=== PATIENT | male | born 1955 | race Caucasian/White ===

== ENCOUNTER → 2016-08-08 | Outpatient (CLI) | payer OTHER ==
[~2016-08-08] MED LIST: COEN150C PO; HYDR12.56 PO; METO-551 PO
[2016-08-08 13:27] LABS: ALT/SGPT 50 U/L (12-78); AST/SGOT 26 U/L (15-37); BLOOD UREA NITROGEN 19 mg/dl (7-18); CALCIUM 8.7 mg/dl (8.5-10.1); CARBON DIOXIDE 30 mmol/L (21-32); CHLORIDE 108 mmol/L (98-107); CHOLESTEROL 188 mg/dl (0-200); GLUCOSE 157 mg/dl (70-99); POTASSIUM 4.5 mmol/L (3.5-5.1); SODIUM 142 mmol/L (136-145); URIC ACID 5.5 mg/dl (2.6-7.2)
[2016-08-08 13:32] LABS: ALB/GLOB RATIO 0.9 (0.9-2); ALKALINE PHOSPHATASE 69 U/L (45-117); CHOLESTEROL/HDL RATIO 4.3; ESTIMATED AVERAGE GLUCOSE 171 mg/dl; HA1C FLAG Normal (Normal); HDL CHOLESTEROL 44 mg/dl; LDL CHOLESTEROL CALCULATED 107 mg/dl; PROSTATE SPECIFIC ANTIGEN 0.026 ng/ml (0.000-4.000); TRIGLYCERIDES 186 mg/dl (0-150); VERY LOW DENSITY LIPOPROT CALC 37 mg/dl
[2016-08-08 14:06] LABS: RATIO 6.5 mcg/mg (0-30.0)
== END | disposition home or self-care (01) ==
LOC: C.LABMFLN 07:28
PROVIDERS: ATTEND Family Medicine
DX: E78.00 Pure hypercholesterolemia, unspecified (principal); I10 Essential (primary) hypertension; M10.9 Gout, unspecified; E11.9 Type 2 diabetes mellitus without complications; Z12.5 Encounter for screening for malignant neoplasm of prostate

== ENCOUNTER → 2016-12-09 | Outpatient (CLI) | payer OTHER ==
[2016-12-09 13:51] LABS: ESTIMATED AVERAGE GLUCOSE 183 mg/dl; HA1C FLAG Normal (Normal)
[2016-12-09 13:55] LABS: ALT/SGPT 45 U/L (12-78); AST/SGOT 34 U/L (15-37); BLOOD UREA NITROGEN 19 mg/dl (7-18); BUN/CREATININE RATIO 17.2 (10-20); CALCIUM 9.3 mg/dl (8.5-10.1); CARBON DIOXIDE 27 mmol/L (21-32); CHLORIDE 105 mmol/L (98-107); CHOLESTEROL 184 mg/dl (0-200); GLUCOSE 124 mg/dl (70-99); POTASSIUM 4.6 mmol/L (3.5-5.1); SODIUM 138 mmol/L (136-145)
[2016-12-09 13:58] LABS: ALB/GLOB RATIO 0.9 (0.9-2); ALKALINE PHOSPHATASE 96 U/L (45-117); CHOLESTEROL/HDL RATIO 3.9; HDL CHOLESTEROL 47 mg/dl; LDL CHOLESTEROL CALCULATED 106 mg/dl; TRIGLYCERIDES 156 mg/dl (0-150); VERY LOW DENSITY LIPOPROT CALC 31 mg/dl
== END | disposition home or self-care (01) ==
LOC: C.LABMFLN 11:36
PROVIDERS: ATTEND Family Medicine
DX: E11.40 Type 2 diabetes mellitus with diabetic neuropathy, unspecified (principal)

== ENCOUNTER → 2017-04-23 | Outpatient (CLI) | payer OTHER ==
[~2017-04-23] MED LIST changes: +ALLO100T PO; +ATOR-24 PO; +CEFT1INJ57 IV; -COEN150C PO; +COLE1TAB5 PO; +DAPT500I IV; +GLIM1TAB2 PO; -HYDR12.56 PO; +HYDR25TA4 PO; +LISI-729 PO; +METF-384 PO; +MRLP17 PO; +MULT-506 PO; +OXYC-57 PO; +SENN8.6T7 PO
[2017-04-23 13:30] LABS: ALBUMIN 3.7 gm/dl (3.4-5.0); ALT/SGPT 36 U/L (12-78); AST/SGOT 29 U/L (15-37); BLOOD UREA NITROGEN 24 mg/dl (7-18); CALCIUM 9.2 mg/dl (8.5-10.1); CARBON DIOXIDE 28 mmol/L (21-32); CREATININE 1.04 mg/dl (0.60-1.40); GLUCOSE 140 mg/dl (70-99); POTASSIUM 4.4 mmol/L (3.5-5.1); SODIUM 136 mmol/L (136-145); URIC ACID 6.2 mg/dl (2.6-7.2)
[2017-04-23 13:31] LABS: HEMOGLOBIN A1C 7.1 % (4.5-5.6)
[2017-04-23 13:33] LABS: ALKALINE PHOSPHATASE 84 U/L (45-117); CHOLESTEROL 205 mg/dl (0-200); LDL CHOLESTEROL CALCULATED 127 mg/dl; TOTAL PROTEIN 8.5 gm/dl (6.4-8.2)
== END | disposition home or self-care (01) ==
LOC: C.LABMFLN 07:30
PROVIDERS: ATTEND Family Medicine
DX: E78.00 Pure hypercholesterolemia, unspecified (principal); I10 Essential (primary) hypertension; E11.40 Type 2 diabetes mellitus with diabetic neuropathy, unspecified

== ENCOUNTER → 2017-04-28 | Day surgery (SDC) | payer OTHER ==
[2017-04-06 14:55] VITALS: BMI 40.0
[~2017-04-28] VITALS: Ht 167.6 cm; Wt 113.6 kg
[~2017-04-28] MED LIST changes: +ATROPINE SULFATE 0.1 MG/ML 5ML SYR IV PRN; -CEFT1INJ57 IV; -DAPT500I IV; +EpHEDrine SULFATE INJ 50 MG/ML AMP IV PRN; +LIDOCAINE HCL 2% 2 ML VIAL (20MG/ML) ONE; -MRLP17 PO; -MULT-506 PO; -OXYC-57 PO; +PROPOFOL IV EMULSION 10 MG/ML 20 ML VIAL IV ONE; -SENN8.6T7 PO; +SODIUM CHLORIDE 0.9% 500ML 500 ML IV ONE
[2017-04-28 07:54] VITALS: Ht 167.6 cm; Wt 113.6 kg
[2017-04-28 08:08] VITALS: TEMP 36.7
--- NOTE | 2017-04-28 08:47 | Endo History and Physical ---
History & Physical Date of Service: Apr 28, 2017. Chief Complaint: SCREEENING 5 YEAR FOLLOW -UP Referring Physician: DR. DUGAN History of Present Illness 62 yo CM who presents for screening colonoscopy. Past Surgical History Hx Cardiac Surgery: No Hx Internal Defibrillator: No Hx Pacemaker: No Hx Abdominal Surgery: No Hx of Implantable Prosthesis: No Hx Post-Op Nausea and Vomiting: No Hx Cancer Surgery: No Hx Thoracic Surgery: No Hx Orthopedic: Yes (RT LEG SURGERY S/P BREAK, RT LEG SURGERY FOR LUMP ON BONE X2) Hx Urinary Tract Surgery: No Family History Colon CA Social History Smoking Status: Former Smoker Hx Substance Use: No Hx Alcohol Use: Yes (OCCASIONAL) Allergies Coded Allergies: No Known Allergies (Unverified , 04/28/17) Current Medications Reported Home Medications Medications Dose Route/Sig Max Daily Dose Days Date Category Hctz (Hydrochlorothiazide) 25 Mg Tab 0.5 Tab PO QAM 04/06/17 Reported Glimepiride 1 Mg Tab 1 Tab PO QPM 04/06/17 Reported Lipitor (Atorvastatin Calcium) 40 Mg Tab 40 Mg PO HS 04/06/17 Reported Zyloprim (Allopurinol) 100 Mg Tab 100 Mg PO BID 04/06/17 Reported Zestril (Lisinopril) 5 Mg Tab 5 Mg PO QPM 04/06/17 Reported Glucophage (Metformin Hcl) 1,000 Mg Tab 1,000 Mg PO BID 04/06/17 Reported Colestipol Hcl 1 Gm Tab 1 Tab PO BID 04/06/17 Reported Lopressor (Metoprolol Tartrate) 50 Mg Tab 1.5 Tabs PO BID 12/16/11 Reported Vital Signs Weight (Kilograms): 113.64 Height (Feet): 5 Height (Inches): 6 Date Time Temp Pulse Resp B/P (MAP) Pulse Ox O2 Delivery O2 Flow Rate FiO2 04/28/17 08:08 36.7 94 20 172/91 (118) 95 Room Air Physical Exam General Appearance: WD/WN, no apparent distress Respiratory/Chest: Auscultation: breath sounds normal Cardiovascular: Heart Auscultation: RRR Abdomen: Bowel Sounds: normal Inspection & Palpation: soft, non-distended, no tenderness, guarding & rebound Assessment and Plan Assessment: 62 yo CM who presents for screening colonoscopy. Plan: Proceed with colonoscopy.
--- NOTE | 2017-04-28 09:14 | GI REPORT ---
Procedure Date: 04/28/2017 8:25 AM Procedure: Colonoscopy Indications: Screening for colorectal malignant neoplasm Medicines: Monitored Anesthesia Care Complications: No immediate complications. Estimated Blood Loss: Estimated blood loss: none. Procedure: Pre-Anesthesia Assessment: - Prior to the procedure, a History and Physical was performed, and patient medications and allergies were reviewed. The patient's tolerance of previous anesthesia was also reviewed. The risks and benefits of the procedure and the sedation options and risks were discussed with the patient. All questions were answered, and informed consent was obtained. Prior Anticoagulants: The patient has taken no previous anticoagulant or antiplatelet agents. ASA Grade Assessment: III - A patient with severe systemic disease. After reviewing the risks and benefits, the patient was deemed in satisfactory condition to undergo the procedure. After I obtained informed consent, the scope was passed under direct vision. Throughout the procedure, the patient's blood pressure, pulse, and oxygen saturations were monitored continuously. The On-site loaner was introduced through the anus and advanced to the terminal ileum. The colonoscopy was performed without difficulty. The patient tolerated the procedure well. The quality of the bowel preparation was good. The terminal ileum, ileocecal valve, appendiceal orifice, and rectum were photographed. Findings: The perianal and digital rectal examinations were normal. Multiple small-mouthed diverticula were found in the sigmoid colon. Non-bleeding internal hemorrhoids were found during retroflexion. The hemorrhoids were small. Impression: - Diverticulosis in the sigmoid colon. - Non-bleeding internal hemorrhoids. - No specimens collected. Recommendation: - Resume previous diet. - Continue present medications. - Repeat colonoscopy in 10 years for surveillance. - Return to primary care physician as previously scheduled. Oren Camp, 04/28/2017 9:14:04 AM This report has been signed electronically. Note Initiated On: 04/28/2017 8:25 AM I attest to the content of the Intraoperative Record and orders documented therein, exceptions below
--- NOTE | 2017-04-28 09:17 | Discharge Instructions ---
Endoscopy Patient Instructions Date / Procedure(s) Performed Apr 28, 2017. Colonoscopy Allergy Information Coded Allergies: No Known Allergies (Unverified , 04/28/17) Discharge Date / Findings Apr 28, 2017. Diverticulosis Internal hemorrhoids Medication Instructions Stopped Medication(s): ALL MEDS STOPPED YESTERDAY 04/27/17 OK to resume all medications today as prescribed Reported Home Medications Medications Dose Route/Sig Max Daily Dose Days Date Category Hctz (Hydrochlorothiazide) 25 Mg Tab 0.5 Tab PO QAM 04/06/17 Reported Glimepiride 1 Mg Tab 1 Tab PO QPM 04/06/17 Reported Lipitor (Atorvastatin Calcium) 40 Mg Tab 40 Mg PO HS 04/06/17 Reported Zyloprim (Allopurinol) 100 Mg Tab 100 Mg PO BID 04/06/17 Reported Zestril (Lisinopril) 5 Mg Tab 5 Mg PO QPM 04/06/17 Reported Glucophage (Metformin Hcl) 1,000 Mg Tab 1,000 Mg PO BID 04/06/17 Reported Colestipol Hcl 1 Gm Tab 1 Tab PO BID 04/06/17 Reported Lopressor (Metoprolol Tartrate) 50 Mg Tab 1.5 Tabs PO BID 12/16/11 Reported Provider Instructions Activity Restrictions - No exercising or heavy lifting for 24 hours. - Do not drink alcohol the day of the procedure. - Do not drive a car or operate machinery until the day after the procedure. - Do not make any important decisions or sign important papers in 24 hours after the procedure. Following Day: - Return to full activity which may include returning to work/school. Diet Start your diet with liquids and light foods (jello, soup, juice, toast). Then eat your usual diet if not nauseated. Treatment For Common After Affects For mild abdominal pain, bloating, or excessive gas: - Rest - Eat lightly - Lie on right side Follow-Up Information Follow-up with DR. DUGAN as scheduled Anesthesia Information What You Should Know You have had a procedure that required some medicine to reduce anxiety and discomfort. This treatment is called moderate sedation. After receiving the treatment, you may be sleepy, but you will be able to breathe on your own. The effects of the treatment may last for several hours. Follow these instructions along with Activity/Diet recommendations noted above: * Do NOT do anything where dizziness or clumsiness would be dangerous. * Rest quietly at home today, then you can be up and about tomorrow. * Have a responsible person stay with you the rest of today. * You may have had an I.V. today. If so, you may take the dressing off later today. Recommendations Call your doctor if: * Trouble breathing * Continuous vomiting for more than 24 hours * Temperature above 101 degrees * Severe abdominal pain or bloating * Pain not relieved by pain medicine ordered * There is increased drainage or redness from any incision * A large amount of rectal bleeding greater than 2-3 tablespoons. (If you had a polyp/s removed or have hemorrhoids, a small amount of blood - from the rectum is to be expected.) * You have any unanswered questions or concerns. IN THE EVENT OF A SERIOUS EMERGENCY, GO TO THE NEAREST EMERGENCY ROOM Your discharge instructions were prepared by provider Oren Camp. Patient Instructions Signature Page Mika Calhoun Patient (or Guardian) Signature/Date: I have read and understand the instructions given to me by my caregivers. Caregiver/RN/Doctor Signature/Date: The above-named patient and/or guardian has received patient instructions on this date. + Original Patient Signature Page (only) stays with chart. Please make copy for patient.
--- NOTE | 2017-04-28 09:32 | Anesthesiology Progress Note ---
Anesthesia Post Op Note Date & Time Apr 28, 2017 at 09:32 Vital Signs Pain Intensity: 0 Vital Signs Past 12 Hours Date Time Temp Pulse Resp B/P (MAP) Pulse Ox O2 Delivery O2 Flow Rate FiO2 04/28/17 09:14 76 20 110/71 (84) 96 Room Air 04/28/17 08:08 36.7 94 20 172/91 (118) 95 Room Air Notes Mental Status: alert / awake / arousable, participated in evaluation Pt Amnestic to Procedure: Yes Nausea / Vomiting: adequately controlled Pain: adequately controlled Airway Patency, RR, SpO2: stable & adequate BP & HR: stable & adequate Hydration State: stable & adequate Anesthetic Complications: no major complications apparent
[2017-04-28 09:45] VITALS: BP 122/79; PULSE 82; O2SAT 100
== END | disposition home or self-care (01) ==
LOC: C.GI 07:40
PROVIDERS: ATTEND Internal Medicine
DX: Z12.11 Encounter for screening for malignant neoplasm of colon (principal); K57.30 Diverticulosis of large intestine without perforation or abscess without bleeding; K64.8 Other hemorrhoids; K21.9 Gastro-esophageal reflux disease without esophagitis; E11.9 Type 2 diabetes mellitus without complications; Z87.891 Personal history of nicotine dependence; Z80.0 Family history of malignant neoplasm of digestive organs

== ENCOUNTER → 2017-06-15 | Outpatient (CLI) | payer OTHER ==
[~2017-06-15] MED LIST changes: -ATROPINE SULFATE 0.1 MG/ML 5ML SYR IV PRN; -EpHEDrine SULFATE INJ 50 MG/ML AMP IV PRN; -LIDOCAINE HCL 2% 2 ML VIAL (20MG/ML) ONE; -PROPOFOL IV EMULSION 10 MG/ML 20 ML VIAL IV ONE; -SODIUM CHLORIDE 0.9% 500ML 500 ML IV ONE
== END | disposition home or self-care (01) ==
LOC: C.LABSPEC 16:44
PROVIDERS: ATTEND Podiatrist Foot & Ankle Surgery
DX: L97.509 Non-pressure chronic ulcer of other part of unspecified foot with unspecified severity (principal)

== ENCOUNTER → 2017-06-29 | Outpatient (CLI) | payer OTHER ==
[~2017-06-29] MED LIST changes: +GADAVIST IV PRN
--- NOTE | 2017-06-29 13:05 | DIAGNOSTIC IMAGING REPORT ---
R LOWER EXT NONJOINT COMBO CLINICAL HISTORY: RT FOOT R/O OSTEOMYELITIS, RT 2ND DIGIT pain. Infection. TECHNIQUE: Pre and post gadolinium enhancement. Multi axial acquisition COMPARISON STUDY: None FINDINGS: T1 images demonstrate diminished signal involving the distal phalanx of the second toe. Slight decrease in signal base distal phalanx great toe. Moderate granulation and/or inflammatory tissue surrounding the distal phalanx of the second toe and minimally involving the base of the distal phalanx. Findings of moderate generalized soft tissue cellulitis. This is most prominent overlying the second and to a lesser extent right toe phalanges. No evidence for drainable abscess or collection. Postcontrast images demonstrate significant enhancement involving the bulk of the distal phalanx of the second toe. There is perhaps a trace amount of postcontrast enhancement involving the proximal interphalangeal joint of this is potentially degenerative. There is moderate postcontrast enhancement involving the base of the distal phalanx of the great toe. This is suggestive of potential osteomyelitis-type change. There is again no drainable abscess or collection. IMPRESSION: 1. Findings consistent with osteomyelitis distal phalanx second toe 2. Probable early osteomyelitis base distal phalanx great toe. 3. Generalized soft tissue cellulitis and granulation tissue. 4. No evidence for drainable abscess or collection. 5. Generalized degenerative change of the articular services and joint spaces throughout. The above report was generated using voice recognition software. It may contain grammatical, syntax or spelling errors. Electronically signed by: Eduardo Neff M.D. 06/29/2017 1:03 PM Dictated Date/Time: 06/29/2017 12:47 PM
== END | disposition home or self-care (01) ==
LOC: C.MRI 10:07
PROVIDERS: ATTEND Podiatrist Foot & Ankle Surgery
DX: L97.512 Non-pressure chronic ulcer of other part of right foot with fat layer exposed (principal); Q66.89 Other specified congenital deformities of feet

== ENCOUNTER 2017-07-20 14:28 | Inpatient (IN) | payer OTHER ==
[~2017-07-20] VITALS: Ht 172.7 cm; Wt 109.8 kg
[~2017-07-20 14:28] MED LIST changes: -GADAVIST IV PRN
--- NOTE | 2017-07-20 16:06 | HISTORY & PHYSICAL EXAMINATION ---
DATE OF ADMISSION: 07/20/2017 PREOPERATIVE HISTORY AND PHYSICAL HISTORY OF PRESENT ILLNESS: A 62-year-old male presented to the office today for review of MRI. The patient was first seen in my office in May at the request of Dr. Morales for possible surgical correction of the second toe due to a chronic ulceration that has been present for several months. He has had drainage, redness and swelling on the toe since I have known him in May with longstanding history of ulceration and callus formation distal aspect. Due to MRI findings, recommend surgical intervention. The patient is amenable to surgical correction of the infected bone at this time. PAST SURGICAL HISTORY: Leg surgery in 1988 for a leg fracture. PAST MEDICAL HISTORY: Diabetes mellitus, hypertension, hyperlipidemia, arthritis and gout. MEDICATIONS: Atorvastatin, allopurinol, hydrochlorothiazide, lisinopril, metoprolol, glimepiride tablets; recently discontinued the Keflex. ALLERGIES: No known drug allergies. FAMILY HISTORY: Diabetes associated with maternal uncle. An IN less than 50 years old associated with his father. Occupation - he is a truck service manager and repair. SOCIAL HISTORY: The patient admits to alcohol use, drinking described as social. The patient admits to tobacco use, currently not smoking, quit over 40 years ago. A 1- 2-year pack history. SOCIAL HISTORY: The patient currently lives with his who is trying to place in a care facility. REVIEW OF SYSTEMS: Unremarkable except chief complaint. PHYSICAL EXAMINATION: VITAL SIGNS: Height 5 feet 7 inches, weight 250 pounds, body mass index 39. CONSTITUTIONAL: The patient appears well-developed and well-nourished with good attention to body grooming and habitus. EARS, NOSE, MOUTH, AND THROAT: Unremarkable. Head within normal limits. CARDIOVASCULAR: Normal S1, S2 without murmur, gallops, rubs noted. RESPIRATORY: Chest is symmetric. ____ GASTROINTESTINAL: Abdominal organs, bladder, and kidney show no abnormalities, masses, tenderness, or rigidity. LYMPHATIC SYSTEM: No palpable lymph nodes noted. LOWER EXTREMITY: VASCULAR: Dorsalis pedis and posterior tibial pulses are palpable. Digital hair is absent. Varicosities are present. There is focal swelling noted to the right second digit. DERMATOLOGIC: There is an ulceration in plantar right first MTPJ, plantar pulp of the right second digit. The right first hallux is preulcerative with dry drainage noted in the callous. The ulceration in the distal aspect of the right second digit measures 1.7 cm. Base characteristics are dermal. Exudate ____ serosanguineous with mild tracking periwound. The conditions include erythema and edema. NEUROLOGICAL: Epicritic sensation per [place] foam 5.07 absent distally. MUSCULOSKELETAL: Muscle tone is normal. Muscle strength is 5/5 all groups tested. Right second digit shows contracture with retrograde buckling across the metatarsophalangeal joint, right second digit is elongated, distal aspect of the right second digit shows increased size ____ and width. Ankle brachial index performed on June 29 shows digital toe pressures of the right second digit of 0.97. LABORATORY AND IMAGING DATA: ABIs are normal bilaterally, TBIs are normal bilaterally, digits 1 through 3. No evidence of significant lower extremity arterial occlusive disease bilaterally. Bacterial culture from May of drainage shows Staph aureus. No recent cultures were taken. MRI on 06/29/2017 shows diminished signal involving distal phalanx of the second toe. Findings of moderate generalized soft tissue cellulitis, post-enhancement of the distal phalanx of the great toe suggestive of potential osteomyelitis type change. This was discussed with radiology and found to be not clinically significant with osteomyelitis to the distal phalanx of the great toe; however, findings consistent with osteomyelitis to distal phalanx of the second toe. Generalized soft tissue and granulation tissue with no evidence for drainage, abscess or collection. Generalized degenerative change of articular surface of the joint spaces throughout. IMPRESSION: 1. Osteomyelitis, acute, distal phalanx, right second toe. 2. Cellulitis, right foot. 3. Minaya grade 0, preulcerative breakdown forefoot on the right hallux ulceration, Minaya grade 3, distal right second digit with obvious bone involvement. 4. Noninsulin-dependent diabetes mellitus with neuropathy. 5. Hammertoes, right second, most severe. PLAN: Reviewed the MRI findings and typical postoperative course. SURGICAL PROCEDURE TO BE PERFORMED: 1. I&D of right foot. 2. Amputation, right second digit. 3. Capsulotomy with release of right second MTPJ and this will be performed under local with IV sedation of anesthesia at the hospital. The procedure, risks and complications were fully reviewed with the patient. Consent form, foot diagram illustration reviewed in all their entirety. All the patient's questions were answered. Complications were discussed in detail with the patient including pain, infection, swelling that may or may not be excessive, pins and needles feeling, numbness, metatarsalgia, excessive bleeding, delay or nonhealing bone, delay or nonhealing of skin, enlarged scar, failure of the procedure, recurrence or worsening condition which may or may not require further surgery, adverse reaction to anesthesia, allergic reaction to others, suture or other implant material, loss of toe, foot, or leg, flail toe, stiff toe, short toe, elevated toe, transposition or callus, peripheral neurovascular complications such as phlebitis, damage to nerves or vascular structures, severe or chronic pain, chronic nerve pain or damage, and general medical complications. The patient will be required to be in a surgery shoe for minimal for 4-6 weeks and not to dress shoe for 6-12 weeks depending on the postop edema. The patient ____ elective type procedure and I recommend a second opinion. The patient stated he understood. Consent form was signed with a copy of foot diagram issued to the patient. Verbal and written postop instructions were given. The patient will be required to be in a surgery shoe for 4-6 weeks, not return to dress shoe for 6-12 weeks depending on postop edema. He will require 6 weeks of IV antibiotics, stop date being September 01. We spoke to the hospitalist regarding admission, willingness to accept the patient and initiate IV antibiotics. The patient will be congressional representative to the OR tomorrow for surgery, will need 6 weeks of IV antibiotics following surgery.
[2017-07-20] MEDS ORDERED: HEPARIN SOD 5000 UNIT/0.5 ML CARP SQ SCH (16:45)
[2017-07-20] MEDS ORDERED: ACETAMINOPHEN 325 MG TAB PO PRN (16:45)
[2017-07-20] MEDS ORDERED: VANCOMYCIN CONSULT ACTIVE PRN (17:00)
[2017-07-20 17:24] LABS: HEMATOCRIT 36.5 % (42-52); HEMOGLOBIN 12.9 g/dL (14.0-18.0); MEAN CELL VOLUME 94.6 fL (80-100); MEAN CORPUSCULAR HEMOGLOBIN 33.4 pg (25-34); MEAN PLATELET VOLUME 10.5 fL (7.4-10.4); PLATELET COUNT 150 K/uL (130-400); RED CELL DISTRIBUTION WIDTH CV 13.7 % (11.5-14.5); RED CELL DISTRIBUTION WIDTH SD 47.7 fL (36.4-46.3); WHITE BLOOD COUNT 5.17 K/uL (4.8-10.8)
[2017-07-20 17:30] VITALS: BP 177/115; PULSE 80; TEMP 36.6; Ht 172.7 cm; Wt 109.8 kg
[2017-07-20] MEDS ORDERED: GLUCOSE 40% GEL 15 GM TUBE PO PRN (17:30)
[2017-07-20] MEDS ORDERED: DEXTROSE 50% 50 ML SYR IV PRN (17:30)
[2017-07-20] MEDS ORDERED: GLUCAGON FOR INJ 1 MG VIAL SQ PRN (17:30)
[2017-07-20] MEDS ORDERED: GLUCOSE 10 TABS/TUBE PO PRN (17:30)
[2017-07-20] MEDS ORDERED: VANCOMYCIN IV 2,750 MG in SODIUM CHLORIDE 0.9% 500ML 500 ML IV SCH (17:30)
[2017-07-20] MEDS: INSULIN ASPART 100 UNITS/ML 3 ML PEN SC SCH ×2 (17:30→20:09)
[2017-07-20 17:33] LABS: PTT PATIENT 26.1 SECONDS (21.0-31.0)
--- NOTE | 2017-07-20 17:36 | History and Physical ---
History & Physical Date & Time of Service: Jul 20, 2017 at 16:57 Chief Complaint: Acute Osteomyelitis Of R Foot Primary Care Physician: Manuel Santiago M.D. History of Present Illness Source: patient, clinic records Mr. Calhoun presents from Dr. Zheng's office. He was there for an appointment to review results from MRI which showed osteomyelitis which Dr. Zheng felt needed IV antibiotics and surgery tomorrow. He had this wound since two years ago but it had healed until about 6 months ago when the infection presented itself again. It is not painful, not draining. Patient had not felt aches or chill or fevers associated with it. He is able to climb a set of stairs without getting winded and does not generally have difficulty with physical exertion. He has no history of heart failure or CAD or stroke. Pmhx DMII, neuropathy, gout, hld ROS Constitutional: no chills, aches, sweats or fever Respiratory: no sob,cough, sputum, or wheezing Cardiac: no chest pain, palpitations, edema, orthopnea or lightheadedness GI: no abdominal pain, nausea, vomiting, diarrhea or constipation : no dysuria or hesitancy Extremities: no joint pain or weakness Skin: no rash All other systems reviewed and negative Past Medical/Surgical History Medical Problems: (1) Osteomyelitis Family History Mother is alive, she is 91 with some memory issues but otherwise healthy Father of heart problems in his 80s His two children are both adopted. 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) Immunizations History of Influenza Vaccine: Yes History of Pneumococcal: No Allergies Coded Allergies: Lovastatin (Verified Allergy, Mild, unkown, 07/20/17) Simvastatin (Verified Allergy, Mild, unknown, 07/20/17) Home Medications Scheduled Allopurinol (Zyloprim), 100 MG PO BID Atorvastatin (Lipitor), 40 MG PO HS Colestipol Hcl (Colestipol Hcl), 1 TAB PO BID Glimepiride (Glimepiride), 1 TAB PO QPM Hydrochlorothiazide (Hctz), 0.5 TAB PO QAM Lisinopril (Zestril), 5 MG PO QPM Metformin Hcl (Glucophage), 1,000 MG PO BID Metoprolol Tartrate (Lopressor), 1.5 TABS PO BID Physical Exam General: no distress Eyes: normal inspection, PERLL Respiratory: chest non tender, clear to auscultation, normal breath sounds, no respiratory distress, no accessory muscle use Cardiac: regular rate and rhythm, no rub or gallop, no murmur, no edema, no jvd GI/: active bowel sounds, no abd pain or tenderness, soft, non distended Extremities: normal range of motion, normal strength, non tender Neuro/Psych: alert and oriented x 3, normal mood and affect Skin: normal color, dry, right second toe with small amount of edema and non draining hardened eschar opening Diagnostics Laboratory Results Results Past 24 Hours Test 07/20/17 16:41 Range/Units Diagnostic Radiology R LOWER EXT NONJOINT COMBO CLINICAL HISTORY: RT FOOT R/O OSTEOMYELITIS, RT 2ND DIGIT pain. Infection. TECHNIQUE: Pre and post gadolinium enhancement. Multi axial acquisition COMPARISON STUDY: None FINDINGS: T1 images demonstrate diminished signal involving the distal phalanx of the second toe. Slight decrease in signal base distal phalanx great toe. Moderate granulation and/or inflammatory tissue surrounding the distal phalanx of the second toe and minimally involving the base of the distal phalanx. Findings of moderate generalized soft tissue cellulitis. This is most prominent overlying the second and to a lesser extent right toe phalanges. No evidence for drainable abscess or collection. Postcontrast images demonstrate significant enhancement involving the bulk of the distal phalanx of the second toe. There is perhaps a trace amount of postcontrast enhancement involving the proximal interphalangeal joint of this is potentially degenerative. There is moderate postcontrast enhancement involving the base of the distal phalanx of the great toe. This is suggestive of potential osteomyelitis-type change. There is again no drainable abscess or collection. IMPRESSION: 1. Findings consistent with osteomyelitis distal phalanx second toe 2. Probable early osteomyelitis base distal phalanx great toe. 3. Generalized soft tissue cellulitis and granulation tissue. 4. No evidence for drainable abscess or collection. 5. Generalized degenerative change of the articular services and joint spaces throughout. Impression Assessment and Plan Mr. Calhoun is a 62 year old man here for osteomyelitis of the second toe on the right foot for surgery tomorrow. Osteomyelitis of second toe of right foot as well as possible early osteomyelitis of great toe and generalized soft tissue cellulitis of the foot as seen on MRI - admit med surg - cbc, prp, ptt, inr, blood cultures x2, start IV - IVF NSS @ 100 ml at midnight after patient becomes NPO for surgery - EKG, cxr - IV vanc, ceftriaxone - cultures 06/15 showed coag negative staph - Patient's RCRI is 0.4% risk of major cardiac event during surgery. Patient is optimized for surgery DMII - A1c in April was 7.1 - ss, bsgs ac and has - hold home sulfonylurea and metformin for now Gout - continue allopurinol HTN - continue hctz, lisinopril HLD - continue statin Full code Hold chemoprophylaxis for DVT for now in preparation for surgery, SCDs Advanced Directives Existing Advance Directive: No Existing Living Will: Yes Existing Power of Jig And Fixture Builder: No Existing Health Care Proxy: No Resuscitation Status full code VTE Prophylaxis Will order VTE Prophylaxis: Yes
[2017-07-20 17:47] LABS: CALCIUM 9.4 mg/dl (8.5-10.1); CREATININE 0.91 mg/dl (0.60-1.40)
--- NOTE | 2017-07-20 17:52 | DIAGNOSTIC IMAGING REPORT ---
SINGLE VIEW CHEST CLINICAL HISTORY: Preoperative examination. FINDINGS: An AP, portable, upright chest radiograph is obtained. No prior studies are available for comparison at the time of dictation. The examination is mildly degraded by portable technique and patient rotation. The cardiomediastinal silhouette is unremarkable. There is mild elevation of left hemidiaphragm. The lungs and pleural spaces are clear. No pneumothorax is seen. The bony thorax is grossly intact. IMPRESSION: No active disease in the chest. Electronically signed by: Manuel Betancourt M.D. 07/20/2017 5:51 PM Dictated Date/Time: 07/20/2017 5:50 PM
[2017-07-20 18:16] LABS: MEAN CORPUSCULAR HGB CONC 35.3 g/dl (32-36)
[2017-07-20] MEDS: CEFTRIAXONE SOD INJ 1 GM in DEXTROSE 5% ADD-VANTAGE 50ML 50 ML IV SCH (18:24)
[2017-07-20 19:06] VITALS: BP 146/89; PULSE 73
--- NOTE | 2017-07-20 19:27 | Pharmacy Progress Note ---
Pharmacy Abx Initial Consult Date of Service Jul 20, 2017. Pharmacy Dosing Scope Date of Consult: 07/20/17 Consultation requested by: Ilana Kern [facility] is consulted to initiate Vancomycin IV dosing therapy, order appropriate labs and adjust drug dose/frequency. Subjective The patient is a 62 year old male admitted on Jul 20, 2017 at 16:[address] Zheng's office with Osteomyelitis of (R) 2nd toe and cellulitis of (R ) leg. He has failed a course of Keflex and is now admitted with goal of surgery by Dr. Zheng to remove toe and continue IV antibiotics x 6 weeks. Ilana Barreto started patient on Vancomycin per pharmacy consult and Rocephin 1gm daily. Objective Height (Feet): 5 Height (Inches): 8.00 Weight (Kilograms): 109.770 Vital Signs (Past 12Hrs) Vital Signs Past 12 Hours Date Time Temp Pulse Resp B/P (MAP) Pulse Ox O2 Delivery O2 Flow Rate FiO2 07/20/17 19:06 73 146/89 (108) 07/20/17 17:30 36.6 80 16 177/115 Room Air Lab Results (24Hrs) Laboratory Tests (24 Hours) Test 07/20/17 17:05 White Blood Count 5.17 K/uL (4.8-10.8) Micro Results Date/Time Source Procedure Growth Status 07/20/17 17:30 Blood Blood Culture Pending Received 07/20/17 17:13 Blood Blood Culture Pending Received Risk Factors for Resistance * Antimicrobial use within the last 90 days: just failed course of Keflex Assessment & Plan Assessment 62 year old male with osteomyelitis of (r) 2nd toe Plan Vancomycin IV * Loading dose: 2750 mg (25mg/kg) * Maintenance dose: 1250 mg IV (11.5 mg/kg) every 8 hours * Goal trough level : 15 to 20 mcg/mL * Trough level ordered prior to 0600 dose on 07/22/17 * A less than traditional dose has been selected due to likelihood of drug accumulation in obese patient. * Patient is likely to have surgery tomorrow to remove toe from Dr. Zheng. Hopefully this does not disrupt current regimen implemented for Vancomycin dosing. Pharmacy will continue to follow and will adjust dose/frequency as necessary. Thank you.
[2017-07-20] MEDS: ALLOPURINOL 100 MG TAB PO SCH (20:28)
[2017-07-20] MEDS: LISINOPRIL 5 MG TAB PO SCH (20:29)
[2017-07-20] MEDS: ATORVASTATIN 40 MG TAB PO SCH (20:30)
[2017-07-20] MEDS: METOPROLOL TARTRATE 25 MG TAB PO SCH (20:30)
[2017-07-20] MEDS: COLESTIPOL HCL 1 GM TAB PO SCH (21:25)
[2017-07-20] MEDS: SODIUM CHLORIDE 0.9% 1000ML 1,000 ML IV SCH (21:26)
[2017-07-20 23:37] VITALS: BP 121/78; PULSE 59; TEMP 36.7; O2SAT 96
[2017-07-21] VITALS (7 sets, daily range): BP systolic 118–138; BP diastolic 76–84; PULSE 50–66; TEMP 36.4–36.6; O2SAT 94–97
[2017-07-21] MEDS: VANCOMYCIN IV 1,250 MG in SODIUM CHLORIDE 0.9% 250ML 250 ML IV SCH ×3 (05:36→21:38)
[2017-07-21 05:38] LABS: HEMATOCRIT 34.2 % (42-52); HEMOGLOBIN 11.8 g/dL (14.0-18.0); MEAN CELL VOLUME 95.5 fL (80-100); MEAN CORPUSCULAR HGB CONC 34.5 g/dl (32-36); MEAN PLATELET VOLUME 10.2 fL (7.4-10.4); PLATELET COUNT 129 K/uL (130-400); WHITE BLOOD COUNT 4.67 K/uL (4.8-10.8)
[2017-07-21 06:14] LABS: CALCIUM 8.4 mg/dl (8.5-10.1); CREATININE 0.93 mg/dl (0.60-1.40); POTASSIUM 4.2 mmol/L (3.5-5.1)
[2017-07-21] MEDS: INSULIN ASPART 100 UNITS/ML 3 ML PEN SC SCH ×4 (08:00→21:00)
[2017-07-21] MEDS: METOPROLOL TARTRATE 25 MG TAB PO SCH ×2 (08:00→19:48)
[2017-07-21] MEDS: HYDROCHLOROTHIAZIDE 25 MG TAB PO SCH ×2 (08:00→08:22)
[2017-07-21] MEDS: ALLOPURINOL 100 MG TAB PO SCH ×2 (08:00→19:48)
[2017-07-21] MEDS: SODIUM CHLORIDE 0.9% 1000ML 1,000 ML IV SCH (08:23)
--- NOTE | 2017-07-21 08:52 | History & Physical Bridge Note ---
H&P Re-Evaluation Bridge Note: I have examined the patient, reviewed the History & Physical and in the interval since the performance of the History & Physical I have noted the following changes of clinical significance: No changes noted
[2017-07-21] MEDS ORDERED: DEXAMETHASONE SOD INJ 4 MG/ML VIAL ONE (09:32)
[2017-07-21] MEDS ORDERED: ONDANSETRON INJ 2 MG/ML 2 ML VIAL ONE (09:32)
[2017-07-21] MEDS ORDERED: LIDOCAINE HCL 2% 2 ML VIAL (20MG/ML) ONE (09:32)
[2017-07-21] MEDS ORDERED: PROPOFOL IV EMULSION 10 MG/ML 20 ML VIAL IV ONE (09:32)
[2017-07-21] MEDS ORDERED: FENTANYL CITRATE INJ 50 MCG/1 ML 2 ML VIAL ONE (09:33)
[2017-07-21] MEDS ORDERED: MIDAZOLAM HCL 1 MG/ML 2ML VIAL ONE (09:33)
[2017-07-21] MEDS ORDERED: BACITRACIN 50000 UNIT VIAL ONE (10:06)
[2017-07-21] MEDS ORDERED: BUPIVACAINE 0.5 % 5 MG/1 ML MPF 30ML VIAL ONE (10:07)
[2017-07-21] MEDS ORDERED: ATROPINE SULFATE 0.1 MG/ML 5ML SYR IV PRN (10:15)
[2017-07-21] MEDS ORDERED: EpHEDrine SULFATE INJ 50 MG/ML AMP IV PRN (10:15)
[2017-07-21] MEDS: COLESTIPOL HCL 1 GM TAB PO SCH ×2 (10:38→21:39)
--- NOTE | 2017-07-21 11:19 | [facility] Post Operative Brief Note ---
Immediate Operative Summary Operative Date Jul 21, 2017. Pre-Operative Diagnosis 1. Osteomyelitis, acute, distal phalanx, right second toe. 2. Cellulitis, right foot. 3. Minaya grade 0, preulcerative breakdown forefoot on the right hallux ulceration, Minaya grade 3, distal right second digit with obvious bone involvement. 4. Noninsulin-dependent diabetes mellitus with neuropathy. 5. Hammertoes, right second, most severe. Post-Operative Diagnosis 1. Osteomyelitis, acute, distal phalanx, right second toe. 2. Cellulitis, right foot. 3. Minaya grade 0, preulcerative breakdown forefoot on the right hallux ulceration, Minaya grade 3, distal right second digit with obvious bone involvement. 4. Noninsulin-dependent diabetes mellitus with neuropathy. 5. Hammertoes, right second, most severe. Procedure(s) Performed Incision and drainage right foot, right second toe amputation, capsulotomy, and rHammer toe repair right second toe, secondary closure of wound Surgeon Dr. Moriah Zheng, D.P.M. Change Management Consultant Surgeon(s) None Estimated Blood Loss 5ml Findings Consistent with Post-Op Diagnosis Specimens Permanent A. Bone and soft tissue right second toe Culture 1. Right foot second digit 2. Right foot second didgit post irrigation Anesthesia Type MAC
--- NOTE | 2017-07-21 11:33 | OPERATIVE REPORT ---
DATE OF OPERATION: 07/21/2017 SURGEON: Dr. Zheng. PREOPERATIVE DIAGNOSES: 1. Cellulitis, right foot. 2. Noninsulin dependent diabetes mellitus with peripheral neuropathy. 3. Ulceration, right second. 4. Acute osteomyelitis, distal phalanx. POSTOPERATIVE DIAGNOSES: Same with hammertoe, right second. PROCEDURES: 1. I&D right foot, down to bone; amputation, right second digit, DIP joint level. 2. Capsulotomy with release, right second MTPJ and relocation of joint. 3. Proximal interphalangeal joint arthroplasty, right second for surgical closure of surgical wound. ANESTHESIA: IV with local sedation, preoperative block given 0.5% Marcaine plain, total of 30 mL. HEMOSTASIS: None. ESTIMATED BLOOD LOSS: 5 mL. MATERIALS: 2-0 Vicryl, 4-0 nylon. INJECTABLES: None. HISTOPATHOLOGY: Soft tissue and bone sent. Deep cultures x2. COMPLICATIONS: None. ROUTE RETURNER PLAN: The patient will be readmitted to the floor on vancomycin and Rocephin. We will await final trough level and 07/23/2015 currently on 1250 mg q. 8. The patient will need IV antibiotics until September 01. Deep cultures were obtained today's visit. Will follow and readmit to the floor for continued IV antibiotics. DESCRIPTION OF PROCEDURE: The patient was brought to the OR and placed on the OR table in supine position. Upon completion of IV sedation by the anesthesia department, a local field block was performed with the above-mentioned anesthetic. The extremity was scrubbed, prepped and draped in the usual aseptic fashion. A fish mouth incision was made distally over the right second digit exercising at the DIP joint toe in total, disarticulated at the distal interphalangeal joint. The cortex of the middle phalanx was intact and hard. Fluoroscan was used to check the amp site and remaining bone. Following irrigation with 3000 units of bacitracin and normal saline. A curvilinear incision was made over the metatarsophalangeal joint releasing metatarsophalangeal joint. There was still contracture at the PIP joint. The extensor tendon was transected to PIP joint and proximal interphalangeal joint arthroplasty was performed of right second digit. Secondary surgical closure was performed of the right second digit. Closure began with 2-0 Vicryl in a simple interrupted fashion, superficial deep structures minimal was used due to the history of infection. Skin was reopposed with 4-0 nylon in simple interrupted fashion. Dry sterile compressive dressing consisting of Adaptic, 4 x 4's, Kerlix and an Connor was applied. The patient tolerated the procedure and anesthesia well without complications, transferred to recovery room with vital signs stable and neurovascular status intact and will be readmitted to the floor. I attest to the content of the Intraoperative Record and any orders documented therein. Any exception s are noted below.
--- NOTE | 2017-07-21 11:38 | DIAGNOSTIC IMAGING REPORT ---
R TOE(S) MIN 2 VIEWS CLINICAL HISTORY: 62 years-old Male presenting with RT 2ND TOE AMP. TECHNIQUE: 1 fluoroscopic spot image(s) obtained as part of an intraoperative procedure. COMPARISON: None. FINDINGS/IMPRESSION: Postsurgical changes of the second toe with absence of the distal phalanx and absence of the mid to distal portion of the middle phalanx consistent with amputation. Please see surgical report for further details. Fluoroscopy dosage (mGy): 0.02. Fluoroscopy time: 1.1 seconds. Number of fluoroscopic spot images: 1. Electronically signed by: Satish Harris M.D. 07/21/2017 11:36 AM Dictated Date/Time: 07/21/2017 11:36 AM
--- NOTE | 2017-07-21 11:46 | Anesthesiology Progress Note ---
Anesthesia Post Op Note Date & Time Jul 21, 2017 at 11:46 Vital Signs Pain Intensity: 0 Vital Signs Past 12 Hours Date Time Temp Pulse Resp B/P (MAP) Pulse Ox O2 Delivery O2 Flow Rate FiO2 07/21/17 11:40 50 16 124/84 95 Room Air 07/21/17 11:30 59 16 122/73 96 Room Air 07/21/17 11:24 36 59 16 126/75 96 Room Air 07/21/17 08:20 Room Air 07/21/17 07:50 36.6 50 17 134/84 (101) 97 Room Air Notes Mental Status: alert / awake / arousable, participated in evaluation Pt Amnestic to Procedure: Yes Nausea / Vomiting: adequately controlled Pain: adequately controlled Airway Patency, RR, SpO2: stable & adequate BP & HR: stable & adequate Hydration State: stable & adequate Anesthetic Complications: no major complications apparent
--- NOTE | 2017-07-21 12:26 | DIAGNOSTIC IMAGING REPORT ---
R FOOT MIN 3 VIEWS ROUTINE CLINICAL HISTORY: 62 years-old Male presenting with POST OP. TECHNIQUE: Frontal, oblique, and lateral views of the right foot were obtained. COMPARISON: None. FINDINGS: Severe osteopenia limits evaluation for nondisplaced fracture. Allowing for this, no displaced fracture or malalignment is evident. Amputation of the distal phalanx of the second toe and the distal metaphysis of the middle phalanx of the second toe. Evaluation for osteolysis and periosteal reaction is also significantly limited by osteopenia. IMPRESSION: Postsurgical changes of the second toe. Evaluation for acute osseous injury and osteomyelitis is significantly limited due to severe osteopenia. Electronically signed by: Satish Harris M.D. 07/21/2017 12:25 PM Dictated Date/Time: 07/21/2017 12:24 PM
[2017-07-21] MEDS ORDERED: NURSING VERBAL MED ORDER ONE (14:30)
--- NOTE | 2017-07-21 15:55 | Hospitalist Progress Note ---
Hospitalist Progress Note Date of Service Jul 21, 2017. Subjective Pt evaluation today including: conversation w/ patient, physical exam, chart review, lab review, review of studies, review of inpatient medication list Pain: None PO Intake: Tolerating PO diet Voiding: no voiding problems Patient reports feeling well postoperatively. He denies any pain, numbness, tingling. He is eating well postoperatively. He has not yet urinated, passed gas, or had a bowel movement after surgery. The patient denies fevers, chills, sweats, chest pain, palpitations, claudication, cough, wheezing, shortness of breath, nausea, vomiting, abdominal pain, dysuria, hematuria, urinary retention , paralysis, weakness, numbness and tingling. Additional Comments: See HPI for pertinent positives and negatives. All other systems reviewed and negative. Objective Vital Signs Date Time Temp Pulse Resp B/P (MAP) Pulse Ox O2 Delivery O2 Flow Rate FiO2 07/21/17 15:29 36.6 53 18 138/84 (102) 97 Room Air 07/21/17 13:32 36.5 53 18 135/83 (100) 95 Room Air 07/21/17 12:34 94 Room Air 07/21/17 12:31 36.4 51 18 132/80 (97) 94 Room Air 07/21/17 12:00 36.1 49 16 121/75 94 Room Air 07/21/17 11:50 36.1 51 16 123/80 94 Room Air 07/21/17 11:40 50 16 124/84 95 Room Air 07/21/17 11:30 59 16 122/73 96 Room Air 07/21/17 11:24 36 59 16 126/75 96 Room Air 07/21/17 08:20 Room Air 07/21/17 07:50 36.6 50 17 134/84 (101) 97 Room Air 07/20/17 23:37 36.7 59 18 121/78 (92) 96 Room Air 07/20/17 23:30 Room Air 07/20/17 19:06 73 146/89 (108) 07/20/17 17:30 36.6 80 16 177/115 Room Air Physical Exam Notes: General appearance: +Obese. Well-developed, well-nourished, no apparent distress Head: Normocephalic, atraumatic Eyes: Normal inspection, PERRL, EOMI ENT: Normal ENT inspection, hearing grossly normal, pharynx normal Neck: Supple, no JVD, trachea midline Respiratory/Chest: Lungs clear to auscultation, normal breath sounds, no respiratory distress Cardiovascular: Regular rate & rhythm, no gallop, no murmur Abdomen/GI: Normal bowel sounds, non-tender, soft Extremities/Musculoskeletal: +RLE wrapped in dexter bandage. Normal inspection, no calf tenderness, no pedal edema Neurological/Psych: Alert, normal mood/affect, oriented x 3 Skin: Normal color, warm/dry, no rash Laboratory Results Last 24 Hours Test 07/20/17 17:05 07/20/17 19:30 07/21/17 05:17 07/21/17 07:43 White Blood Count 5.17 K/uL 4.67 K/uL Red Blood Count 3.86 M/uL 3.58 M/uL Hemoglobin 12.9 g/dL 11.8 g/dL Hematocrit 36.5 % 34.2 % Mean Corpuscular Volume 94.6 fL 95.5 fL Mean Corpuscular Hemoglobin 33.4 pg 33.0 pg Mean Corpuscular Hemoglobin Concent 35.3 g/dl 34.5 g/dl RDW Standard Deviation 47.7 fL 49.0 fL RDW Coefficient of Variation 13.7 % 14.0 % Platelet Count 150 K/uL 129 K/uL Mean Platelet Volume 10.5 fL 10.2 fL Prothrombin Time 10.7 SECONDS Prothromb Time International Ratio 1.0 Activated Partial Thromboplast Time 26.1 SECONDS Partial Thromboplastin Ratio 1.0 Sodium Level 136 mmol/L 137 mmol/L Potassium Level 4.0 mmol/L 4.2 mmol/L Chloride Level 103 mmol/L 104 mmol/L Carbon Dioxide Level 24 mmol/L 26 mmol/L Anion Gap 9.0 mmol/L 7.0 mmol/L Blood Urea Nitrogen 19 mg/dl 18 mg/dl Creatinine 0.91 mg/dl 0.93 mg/dl Est Creatinine Clear Calc Drug Dose 101.1 ml/min 98.9 ml/min Estimated GFR () 104.3 101.6 Estimated GFR (Non- 90.0 87.7 BUN/Creatinine Ratio 20.7 18.9 Random Glucose 109 mg/dl 139 mg/dl Calcium Level 9.4 mg/dl 8.4 mg/dl Bedside Glucose 125 mg/dl 144 mg/dl Test 07/21/17 08:52 07/21/17 11:29 07/21/17 12:27 Bedside Glucose 135 mg/dl 131 mg/dl 128 mg/dl Assessment and Plan 62 y/o male with history of HTN, HLD, DM II w/neuropathy, and gout who presents for direct admission from podiatry with right foot osteomyelitis. Osteomyelitis of second toe of right foot, possible early osteomyelitis of great toe, generalized soft tissue cellulitis of the foot as seen on MRI--stable - Admit med surg - Podiatry following, appreciate recs: Will need 6 weeks IV abx following surgery, until September 01. - S/p I&D right foot, amputation 2nd right toe at DIP joint, capsulotomy w/ release of right second MTPJ and relocation of joint, proximal interphalangeal joint arthroplasty w/Dr. Zheng - Continue IV vanc and Rocephin for now, repeat wound cultures pending. Cultures from 06/15 had shown coag neg staph - Blood cultures pending - D/C IVF as now eating postop HTN, HLD--stable -Continue Lopressor 75 mg PO BID, HCTZ 12.5 mg PO qd, lisinopril 5 mg PO qd, Lipitor 40 mg PO qd, colestipol 1 gm PO BID DM II--HgbA1 7.1 on 04/23/17 - Hold glimepiride, metformin -Insulin sliding scale -Check BSGs q ac and qhs Gout - Continue allopurinol DVT prophylaxis -Chemical ppx held due to surgery, resume when ok with surgery -SCDs Code Status -Level I, FULL RESUSCITATION STATUS Dispo -From home -Case management aware of jail IV abx
[2017-07-21] MEDS: CEFTRIAXONE SOD INJ 1 GM in DEXTROSE 5% ADD-VANTAGE 50ML 50 ML IV SCH (17:33)
[2017-07-21] MEDS: ATORVASTATIN 40 MG TAB PO SCH (19:47)
[2017-07-21] MEDS: LISINOPRIL 5 MG TAB PO SCH (19:49)
[2017-07-21] MEDS ORDERED: MoRPHine SULFATE 2 MG/ML CARP IV STA (20:59)
[2017-07-21] MEDS ORDERED: MoRPHine SULFATE 2 MG/ML CARP IV PRN (21:00)
[2017-07-22] MEDS: VANCOMYCIN IV 1,250 MG in SODIUM CHLORIDE 0.9% 250ML 250 ML IV SCH ×2 (05:30→16:08)
[2017-07-22] MEDS ORDERED: VANCOMYCIN TROUGH ONE (05:30)
[2017-07-22 06:08] LABS: HEMATOCRIT 35.3 % (42-52); HEMOGLOBIN 11.9 g/dL (14.0-18.0); MEAN CELL VOLUME 96.4 fL (80-100); MEAN CORPUSCULAR HEMOGLOBIN 32.5 pg (25-34); MEAN CORPUSCULAR HGB CONC 33.7 g/dl (32-36); MEAN PLATELET VOLUME 10.7 fL (7.4-10.4); PLATELET COUNT 133 K/uL (130-400); WHITE BLOOD COUNT 5.82 K/uL (4.8-10.8)
[2017-07-22 06:42] LABS: CALCIUM 8.8 mg/dl (8.5-10.1); CREATININE 1.01 mg/dl (0.60-1.40); POTASSIUM 4.2 mmol/L (3.5-5.1)
[2017-07-22 07:53] VITALS: BP 132/84; PULSE 53; TEMP 36.6; O2SAT 92
[2017-07-22] MEDS: METOPROLOL TARTRATE 25 MG TAB PO SCH ×2 (08:00→19:40)
[2017-07-22] MEDS: INSULIN ASPART 100 UNITS/ML 3 ML PEN SC SCH ×4 (08:12→20:23)
[2017-07-22] MEDS: HYDROCHLOROTHIAZIDE 25 MG TAB PO SCH (08:23)
[2017-07-22] MEDS: ALLOPURINOL 100 MG TAB PO SCH ×2 (08:23→19:40)
[2017-07-22 08:53] VITALS: O2SAT 92
--- NOTE | 2017-07-22 10:16 | Pharmacy Progress Note ---
Pharmacy Abx Dose Short Note Date of Service Jul 22, 2017. Assessment & Plan Mr. Calhoun's trough at [facility] came back slightly supratherapeutic, 21.0mcg/mL. Given Mr. Calhoun's habitus and small decline in renal fxn, will extend dosing interval from q8 to q10. Trough ordered for 07/24/17 @0730. Pharmacy will continue to follow and will adjust dose/frequency as necessary. Thank you.
[2017-07-22] MEDS: COLESTIPOL HCL 1 GM TAB PO SCH ×2 (10:21→22:25)
--- NOTE | 2017-07-22 10:39 | Anesthesiology Progress Note ---
Anesthesia Post Op Note Date & Time Jul 22, 2017 at 10:39 Vital Signs Pain Intensity: 3.0 Vital Signs Past 12 Hours Date Time Temp Pulse Resp B/P (MAP) Pulse Ox O2 Delivery O2 Flow Rate FiO2 07/22/17 08:53 92 Room Air 07/22/17 08:29 Room Air 07/22/17 07:53 36.6 53 20 132/84 (100) 92 Room Air 07/22/17 00:00 Room Air 07/21/17 22:52 36.6 57 18 118/76 (90) 96 Notes Mental Status: alert / awake / arousable, participated in evaluation Pt Amnestic to Procedure: Yes Nausea / Vomiting: adequately controlled Pain: adequately controlled Airway Patency, RR, SpO2: stable & adequate BP & HR: stable & adequate Hydration State: stable & adequate Anesthetic Complications: no major complications apparent
[2017-07-22 12:00] VITALS: BP 124/82; PULSE 59; TEMP 36.5; O2SAT 94
--- NOTE | 2017-07-22 14:10 | BLINK REPORT ---
FOLLOWUP NOTE SUBJECTIVE: The patient is seen at bedside postoperative day #1, notes mild amount of pain, currently ambulating, eating and voiding well without problems, tolerating vancomycin and Rocephin well. PHYSICAL EXAMINATION: VITAL SIGNS: Stable and afebrile. LOWER EXTREMITY: Good cap refill noted to distal aspect of the second toe, erythema involving the DIP joint still present. No purulent drainage, no malodor. Sutures are intact. LABORATORY DATA: Vanco trough is 21. Blood cultures no growth to date. Gram culture from the OR shows gram positive cocci. Deep OR cultures are still pending. IMPRESSION: 1. Status post incision and drainage, right foot. 2. Amputation of right second digit, distal interphalangeal joint level. 3. Capsulotomy release, right second metatarsophalangeal joint, proximal interphalangeal joint arthroplasty of right second with secondary closure of surgical wound, postoperative day #1. 4. Cellulitis, right foot, resolving. 5. History of osteomyelitis, right second toe. TREATMENT: Discussed the case with the hospitalist caregivers and pharmacy. Will decrease vancomycin dose to 1250 q. 10 hours and recheck a trough level tomorrow. Will continue Rocephin for an additional week. We will continue to monitor OR deep cultures. If the trough level is therapeutic, planning discharge tomorrow with weekly lab draws of ESR and CBC and every third day check a creatinine and vancomycin trough until it becomes stable. Concerns for vancomycin accumulation could be a concern in this patient was discussed with pharmacy. Due to body habitus, we will continue to monitor closely as an outpatient. From podiatry standpoint, if trough levels are fine tomorrow may be discharged.
[2017-07-22 14:44] VITALS: BP 137/82; PULSE 72; TEMP 36.8; O2SAT 98
[2017-07-22] MEDS ORDERED: POLYETHYLENE (MIRALAX) 17 GM PACK PO ONE (14:51)
--- NOTE | 2017-07-22 15:03 | Hospitalist Progress Note ---
Hospitalist Progress Note Date of Service Jul 22, 2017. Subjective Patient reports feeling well. He does complain of a 4/10 dull aching pain at surgical site currently, although he states that at times the pain is up to an 8 /10. He denies any new numbness or tingling. He is eating, urinating and passing gas without issue postoperatively. He still has not had a bowel movement postop. The patient denies fevers, chills, sweats, chest pain, palpitations, claudication, cough, wheezing, shortness of breath, nausea, vomiting, abdominal pain, dysuria, hematuria, urinary retention, paralysis, weakness, numbness and tingling. Additional Comments: See HPI for pertinent positives and negatives. All other systems reviewed and negative. Objective Vital Signs Date Time Temp Pulse Resp B/P (MAP) Pulse Ox O2 Delivery O2 Flow Rate FiO2 07/22/17 14:44 36.8 72 22 137/82 (100) 98 Room Air 07/22/17 12:00 36.5 59 20 124/82 (96) 94 Room Air 07/22/17 08:53 92 Room Air 07/22/17 08:29 Room Air 07/22/17 07:53 36.6 53 20 132/84 (100) 92 Room Air 07/22/17 00:00 Room Air 07/21/17 22:52 36.6 57 18 118/76 (90) 96 07/21/17 19:50 66 07/21/17 16:00 Room Air 07/21/17 15:29 36.6 53 18 138/84 (102) 97 Room Air Physical Exam Notes: General appearance: +Obese. Well-developed, well-nourished, no apparent distress Head: Normocephalic, atraumatic Eyes: Normal inspection, PERRL, EOMI ENT: Normal ENT inspection, hearing grossly normal, pharynx normal Neck: Supple, no JVD, trachea midline Respiratory/Chest: Lungs clear to auscultation, normal breath sounds, no respiratory distress Cardiovascular: Regular rate & rhythm, no gallop, no murmur Abdomen/GI: Normal bowel sounds, non-tender, soft Extremities/Musculoskeletal: +RLE wrapped in dexter bandage, post op shoe in place. Normal inspection, no calf tenderness, no pedal edema Neurological/Psych: Alert, normal mood/affect, oriented x 3 Skin: Normal color, warm/dry, no rash Laboratory Results Last 24 Hours Test 07/21/17 16:35 07/21/17 20:14 07/22/17 05:17 07/22/17 07:29 Bedside Glucose 86 mg/dl 131 mg/dl 128 mg/dl White Blood Count 5.82 K/uL Red Blood Count 3.66 M/uL Hemoglobin 11.9 g/dL Hematocrit 35.3 % Mean Corpuscular Volume 96.4 fL Mean Corpuscular Hemoglobin 32.5 pg Mean Corpuscular Hemoglobin Concent 33.7 g/dl RDW Standard Deviation 49.0 fL RDW Coefficient of Variation 14.0 % Platelet Count 133 K/uL Mean Platelet Volume 10.7 fL Sodium Level 135 mmol/L Potassium Level 4.2 mmol/L Chloride Level 101 mmol/L Carbon Dioxide Level 28 mmol/L Anion Gap 6.0 mmol/L Blood Urea Nitrogen 20 mg/dl Creatinine 1.01 mg/dl Est Creatinine Clear Calc Drug Dose 91.1 ml/min Estimated GFR () 92.0 Estimated GFR (Non- 79.3 BUN/Creatinine Ratio 19.6 Random Glucose 139 mg/dl Calcium Level 8.8 mg/dl Vancomycin Level Trough 21.0 mcg/ml Test 07/22/17 11:14 Bedside Glucose 109 mg/dl Assessment and Plan 62 y/o male with history of HTN, HLD, DM II w/neuropathy, and gout who presents for direct admission from podiatry with right foot osteomyelitis. Osteomyelitis of second toe of right foot, possible early osteomyelitis of great toe, generalized soft tissue cellulitis of the foot as seen on MRI--stable - Admit med surg - Podiatry following, appreciate recs: Spoke with Dr. Zheng regarding discharge plan. Will need 6 weeks of IV abx. Will continue Rocephin for 1 more week in addition to the vanc. Vanc trough supratherapeutic, will recheck tomorrow. If therapeutic, can discharge tomorrow. - S/p I&D right foot, amputation 2nd right toe at DIP joint, capsulotomy w/ release of right second MTPJ and relocation of joint, proximal interphalangeal joint arthroplasty w/Dr. Zheng POD #1 - Continue IV vanc and Rocephin. Vanc decreased to q10h due to supratherapeutic trough of 21 - Would cultures w/coag neg staph - Blood cultures NGTD - PICC consented and ordered. Scripts for abx provided by Dr. Zheng - Add Percocet 5/325 q4h prn pain - Add bowel regimen HTN, HLD--stable -Continue Lopressor 75 mg PO BID, HCTZ 12.5 mg PO qd, lisinopril 5 mg PO qd, Lipitor 40 mg PO qd, colestipol 1 gm PO BID DM II--HgbA1 7.1 on 04/23/17 - Hold glimepiride, metformin -Insulin sliding scale -Check BSGs q ac and qhs Gout - Continue allopurinol DVT prophylaxis -Chemical ppx held due to surgery, resume when ok with surgery -SCDs Code Status -Level I, FULL RESUSCITATION STATUS Dispo -From home -Case management following to set up home IV abx therapy -Anticipate discharge tomorrow
[2017-07-22] MEDS: CEFTRIAXONE SOD INJ 1 GM in DEXTROSE 5% ADD-VANTAGE 50ML 50 ML IV SCH (18:44)
[2017-07-22] MEDS: ATORVASTATIN 40 MG TAB PO SCH (19:40)
[2017-07-22] MEDS: OXYCODONE/ACETAMINOPHEN 5-325 TAB PO PRN (19:41)
[2017-07-22] MEDS: LISINOPRIL 5 MG TAB PO SCH (19:41)
[2017-07-22 22:54] VITALS: BP 146/87; PULSE 60; TEMP 36.8; O2SAT 97
[2017-07-23] MEDS: VANCOMYCIN IV 1,250 MG in SODIUM CHLORIDE 0.9% 250ML 250 ML IV SCH ×2 (01:36→12:07)
[2017-07-23 05:55] LABS: HEMATOCRIT 34.2 % (42-52); HEMOGLOBIN 11.8 g/dL (14.0-18.0); MEAN CORPUSCULAR HEMOGLOBIN 32.8 pg (25-34); MEAN CORPUSCULAR HGB CONC 34.5 g/dl (32-36); MEAN PLATELET VOLUME 10.1 fL (7.4-10.4); PLATELET COUNT 131 K/uL (130-400); RED CELL DISTRIBUTION WIDTH CV 13.8 % (11.5-14.5); RED CELL DISTRIBUTION WIDTH SD 47.9 fL (36.4-46.3); WHITE BLOOD COUNT 5.49 K/uL (4.8-10.8)
[2017-07-23] MEDS: INSULIN ASPART 100 UNITS/ML 3 ML PEN SC SCH ×3 (06:30→16:30)
[2017-07-23 06:32] LABS: CALCIUM 8.7 mg/dl (8.5-10.1); CREATININE 0.91 mg/dl (0.60-1.40)
[2017-07-23 07:15] VITALS: BP 108/71; PULSE 56; TEMP 36.4; O2SAT 96
[2017-07-23] MEDS: OXYCODONE/ACETAMINOPHEN 5-325 TAB PO PRN (07:53)
[2017-07-23] MEDS: METOPROLOL TARTRATE 25 MG TAB PO SCH (07:55)
[2017-07-23] MEDS: ALLOPURINOL 100 MG TAB PO SCH (07:55)
[2017-07-23] MEDS: HYDROCHLOROTHIAZIDE 25 MG TAB PO SCH (07:56)
[2017-07-23 08:00] VITALS: O2SAT 96
[2017-07-23] MEDS ORDERED: DOCUSATE SODIUM/SENNA 50/8.6MG TAB PO SCH (08:00)
[2017-07-23] MEDS ORDERED: POLYETHYLENE (MIRALAX) 17 GM PACK PO SCH (08:00)
--- NOTE | 2017-07-23 09:27 | PROGRESS NOTE ---
DATE: 07/23/2017 The patient seen postoperative day 2. Pain better controlled. Currently ambulating in surgery shoe. Denies fevers, chills or night sweats. Anxious to go home. Vital signs stable and afebrile. Lower extremity exam, improved edema, mild dusky discoloration dorsal aspect of the toe. Sutures intact. No active drainage. Erythema improved. OR cultures show coag-negative staph. Blood cultures show no growth. IMPRESSION: 1. Postoperative day #2 status post amputation secondary to osteomyelitis. 2. Cellulitis, right foot. TREATMENT RECOMMENDATIONS: Awaiting trough level on vancomycin dosing at 11:30 this morning; if therapeutic, would recommend vancomycin 1250 mg IV q. 10 hours, and ceftriaxone 1 gram q. 24, this will be arranged as an outpatient, stop date 09/01/2017. Dressings to remain clean, dry and intact. The patient can be ambulatory in surgery shoe and will follow up in my office in 1 week.
[2017-07-23] MEDS: COLESTIPOL HCL 1 GM TAB PO SCH (10:17)
[2017-07-23] MEDS ORDERED: VANCOMYCIN TROUGH ONE (11:30)
[2017-07-23] MEDS ORDERED: OXYC-57 PO (12:46)
[2017-07-23] MEDS ORDERED: SENN8.6T7 PO (12:46)
[2017-07-23] MEDS ORDERED: MRLP17 PO (12:46)
[2017-07-23] MEDS ORDERED: DAPTOmycin IV 500 MG in SYRINGE 0 ML IV SCH (14:00)
[2017-07-23 14:21] VITALS: BP 108/71; PULSE 56; TEMP 36.4; O2SAT 96
--- NOTE | 2017-07-23 14:22 | Discharge Instructions ---
Discharge Instructions Date of Service Jul 23, 2017. Admission Reason for Admission: Acute Osteomyelitis Of R Foot Discharge Discharge Diagnosis / Problem: Osteomyelitis Discharge Goals Goal(s): Decrease discomfort, Improve function, Diagnostic testing, Therapeutic intervention Activity Recommendations Activity Limitations: resume your previous activity (as tolerated) . Instructions / Follow-Up Instructions / Follow-Up You were admitted to the hospital with acute osteomyelitis (infection of the bone) in the right foot. You were treated with IV antibiotics and underwent an amputation of your right second toe. You will need a prolonged, 6 week course of IV antibiotics which you can continue at home. A PICC line was placed for the antibiotic administration. You are now medically stable for discharge. Medications: *You will be discharged with daptomycin 500 mg IV every 24 hours and ceftriaxone 1 gm IV every 24 hours. These are IV antibiotics for your infection that you will receive for 6 weeks through home health. *You may take Percocet 5/325 1 tablet by mouth up to every 4 hours as needed for pain. *Please take Miralax 1 dose daily and Senokot 2 tabs daily for the next week to help you move your bowels, especially as opioids such as Percocet can contribute to constipation. *PLEASE DO NOT TAKE ATORVASTATIN (Lipitor) WHILE ON DAPTOMYCIN as this may increase your risk of myopathy and/or rhabdomyolysis. You may resume atorvastatin after your antibiotics are complete. *Continue your other home medications as prescribed. Recommendations: *You may ambulate in your surgical shoe. Follow up: *You have been scheduled to follow up with Dr. Zheng as well as your primary care provider. Please seek medical attention if you experience fevers, chills, sweats, dizziness/lightheadedness, loss of consciousness, chest pain, shortness of breath, nausea, vomiting, numbness or tingling. Current Hospital Diet Patient's current hospital diet: AHA Diet (Heart Healthy), Diabetes Type 2 Diet Discharge Diet Recommended Diet: AHA Diet (Heart Healthy), Diabetes Type 2 Diet Procedures Procedures Performed: Incision and drainage right foot, right second toe amputation, capsulotomy, and rHammer toe repair right second toe, secondary closure of wound Pending Studies Studies pending at discharge: no Medical Emergencies . Who to Call and When: Medical Emergencies: If at any time you feel your situation is an emergency, please call 911 immediately. . Non-Emergent Contact Non-Emergency issues call your: Primary Care Provider, Specialist (child day care provider) Call Non-Emergent contact if: you have a fever, your pain is not controlled, your pain is worsening, your pain is unusual for you, your pain is concerning you, wound has increased drainage, wound has increased redness, wound has increased pain, you have any medication questions . Past History Medical & Surgical History: (1) Osteomyelitis . "Provider Documentation" section prepared by Cady White. . [place] Drug Monitoring Program Search Results: patient reviewed within database, no issues identified
[2017-07-23] MEDS ORDERED: CEFT1INJ57 IV (14:26)
[2017-07-23] MEDS ORDERED: DAPT500I IV (14:26)
--- NOTE | 2017-07-23 14:27 | Discharge Summary ---
Discharge Summary Date of Service Jul 23, 2017. Discharge Summary Admission Date: Jul 20, 2017 at 16:14 Discharge Date: Jul 23, 2017 Discharge Disposition: Home with services Principal Diagnosis: Osteomyelitis Problems/Secondary Diagnoses: HTN, HLD, DM II w/neuropathy, gout Immunizations: Have You Had Influenza Vaccine: Yes History of Pneumococcal: No Procedures: Immediate Operative Summary Operative Date Jul 21, 2017. Pre-Operative Diagnosis 1. Osteomyelitis, acute, distal phalanx, right second toe. 2. Cellulitis, right foot. 3. Minaya grade 0, preulcerative breakdown forefoot on the right hallux ulceration, Minaya grade 3, distal right second digit with obvious bone involvement. 4. Noninsulin-dependent diabetes mellitus with neuropathy. 5. Hammertoes, right second, most severe. Post-Operative Diagnosis 1. Osteomyelitis, acute, distal phalanx, right second toe. 2. Cellulitis, right foot. 3. Minaya grade 0, preulcerative breakdown forefoot on the right hallux ulceration, Minaya grade 3, distal right second digit with obvious bone involvement. 4. Noninsulin-dependent diabetes mellitus with neuropathy. 5. Hammertoes, right second, most severe. Procedure(s) Performed Incision and drainage right foot, right second toe amputation, capsulotomy, and rHammer toe repair right second toe, secondary closure of wound Surgeon Dr. Moriah Zheng, D.P.M. Panel Fitter Surgeon(s) None Estimated Blood Loss 5ml Findings Consistent with Post-Op Diagnosis Specimens Permanent A. Bone and soft tissue right second toe Culture 1. Right foot second digit 2. Right foot second didgit post irrigation Anesthesia Type MAC Consultations: Podiatry Medication Reconciliation New Medications: Ceftriaxone Sod (Rocephin) 1 Gm Inj 1 GM IV Q24H for 42 Days, VIAL Daptomycin (Daptomycin) 500 Mg Inj 500 MG IV Q24H for 42 Days Oxycodone/Acetaminophen 5MG/325MG (Percocet 5MG/325MG) Tab 1 TAB PO Q4H PRN for Pain for 3 Days, #12 TAB 1 tablet up to every 4 hours as needed for pain. Polyethylene (Miralax) 17 Gm Pow 17 GM PO DAILY for 7 Days, #7 DOSE Sennosides-Docusate Sodium (Senokot S) 1 Tab Tab 2 TAB PO QAM for 7 Days, #14 TAB Continued Medications: Allopurinol (Zyloprim) 100 Mg Tab 100 MG PO BID Atorvastatin (Lipitor) 40 Mg Tab 40 MG PO HS Colestipol Hcl (Colestipol Hcl) 1 Gm Tab 1 TAB PO BID Glimepiride (Glimepiride) 1 Mg Tab 1 TAB PO QPM Hydrochlorothiazide (Hctz) 25 Mg Tab 0.5 TAB PO QAM Lisinopril (Zestril) 5 Mg Tab 5 MG PO QPM Metformin Hcl (Glucophage) 1,000 Mg Tab 1000 MG PO BID Metoprolol Tartrate (Lopressor) 50 Mg Tab 1.5 TABS PO BID Discharge Exam Patient reports feeling well. He only complains of a 3/10 pain in right foot currently. He is eating, urinating and passing gas postop. He has not yet had a bowel movement but feels that he will have one soon. The patient denies fevers, chills, sweats, chest pain, palpitations, claudication, cough, wheezing , shortness of breath, nausea, vomiting, abdominal pain, dysuria, hematuria, urinary retention, paralysis, weakness, numbness and tingling. Constitutional: No fever, No chills, No sweats Eyes: No worsening of vision, No eye pain, No diplopia ENT: No hearing loss, No nasal symptoms, No trouble swallowing Respiratory: No cough, No wheezing, No shortness of breath Cardiovascular: No chest pain, No claudication, No palpitations Abdomen: No pain, No nausea, No vomiting Musculoskeletal: +3/10 right foot pain. No muscle pain, No swelling Genitourinary - Male: No dysuria, No urinary retention, No hematuria Neurologic: No paralysis, No weakness, No numbness/tingling Integumentary: No rash, No itch, No color change General appearance: +Obese. Well-developed, well-nourished, no apparent distress Head: Normocephalic, atraumatic Eyes: Normal inspection, PERRL, EOMI ENT: Normal ENT inspection, hearing grossly normal, pharynx normal Neck: Supple, no JVD, trachea midline Respiratory/Chest: Lungs clear to auscultation, normal breath sounds, no respiratory distress Cardiovascular: Regular rate & rhythm, no gallop, no murmur Abdomen/GI: Normal bowel sounds, non-tender, soft Extremities/Musculoskeletal: +RLE wrapped in dexter bandage, surgical shoe in place. Normal inspection, no calf tenderness, no pedal edema Neurological/Psych: Alert, normal mood/affect, oriented x 3 Skin: Normal color, warm/dry, no rash Hospital Course 62 y/o male with history of HTN, HLD, DM II w/neuropathy, and gout who presents for direct admission from podiatry with right foot osteomyelitis. Osteomyelitis of second toe of right foot, possible early osteomyelitis of great toe, generalized soft tissue cellulitis of the foot as seen on MRI--stable - Admit med surg - Podiatry following, appreciate recs: Spoke with Dr. Zheng. Vancomycin trough will supratherapeutic, will change to daptomycin. Will continue Rocephin for now until cultures finalized and then may be able to do dapto alone. Follow up in 1 week. - S/p I&D right foot, amputation 2nd right toe at DIP joint, capsulotomy w/ release of right second MTPJ and relocation of joint, proximal interphalangeal joint arthroplasty w/Dr. Zheng POD #2 - Vanc trough 21.7 - Vanc d/c'd, start daptomycin 500 mg IV q24h - Would cultures w/2 coag neg staph organisms - Blood cultures NGTD - PICC inserted, abx successfully run through line - Add Percocet 5/325 q4h prn pain. Will d/c with 3 day supply. No issues on PDMP - Continue Miralax and Senokot-S HTN, HLD--stable -Continue Lopressor 75 mg PO BID, HCTZ 12.5 mg PO qd, lisinopril 5 mg PO qd, colestipol 1 gm PO BID -HOLD Lipitor while on daptomycin due to increased risk of myopathy and rhabdomyolysis DM II--HgbA1 7.1 on 04/23/17 - Hold glimepiride, metformin -Insulin sliding scale -Check BSGs q ac and qhs Gout - Continue allopurinol DVT prophylaxis -Chemical ppx held due to surgery, resume when ok with surgery -SCDs Code Status -Level I, FULL RESUSCITATION STATUS Dispo -From home -Case management following to set up home IV abx therapy Total Time Spent: Greater than 30 minutes This includes examination of the patient, discharge planning, medication reconciliation, and communication with other providers. Discharge Instructions Please refer to the electronic Patient Visit Report (Discharge Instructions) for additional information. Additional Copies To Manuel Santiago M.D.
[2017-07-23] MEDS ORDERED: CEFTRIAXONE SOD INJ 1 GM in DEXTROSE 5% ADD-VANTAGE 50ML 50 ML IV SCH (14:30)
[2017-07-23 15:08] VITALS: BP 131/85; PULSE 61; TEMP 36.5; O2SAT 97
[2017-07-24] MEDS ORDERED: VANCOMYCIN IV 1,250 MG in SODIUM CHLORIDE 0.9% 250ML 250 ML IV SCH ×2
[2017-07-24] MEDS ORDERED: VANCOMYCIN TROUGH ONE (07:30)
== END 2017-07-23 17:40 | disposition home health service (06) | DRG 580 ==
LOC: C.4E 16:14
PROVIDERS: ADMIT Internal Medicine; ATTEND Internal Medicine
PROC: 0JDQ0ZZ Extraction of Right Foot Subcutaneous Tissue and Fascia, Open Approach (ICD-10-PCS; principal; 2017-07-21 09:45)
PROC: 0LNV0ZZ Release Right Foot Tendon, Open Approach (ICD-10-PCS; principal; 2017-07-21 09:45)
PROC: 0Y6R0Z3 Detachment at Right 2nd Toe, Low, Open Approach (ICD-10-PCS; principal; 2017-07-21 09:45)
PROC: 02HV33Z Insertion of Infusion Device into Superior Vena Cava, Percutaneous Approach (ICD-10-PCS; 2017-07-22)
DX: L03.115 Cellulitis of right lower limb (principal); M86.171 Other acute osteomyelitis, right ankle and foot; L97.911 Non-pressure chronic ulcer of unspecified part of right lower leg limited to breakdown of skin; E11.69 Type 2 diabetes mellitus with other specified complication; E78.5 Hyperlipidemia, unspecified; M19.90 Unspecified osteoarthritis, unspecified site; I10 Essential (primary) hypertension; M10.9 Gout, unspecified; Z83.3 Family history of diabetes mellitus; E11.40 Type 2 diabetes mellitus with diabetic neuropathy, unspecified; M20.41 Other hammer toe(s) (acquired), right foot; Z87.891 Personal history of nicotine dependence

== ENCOUNTER → 2017-07-29 | Outpatient (CLI) | payer OTHER ==
[~2017-07-29] MED LIST changes: +CEFT1INJ57 IV; +DAPT500I IV; +MRLP17 PO; +OXYC-57 PO; +SENN8.6T7 PO
== END | disposition home or self-care (01) ==
LOC: C.LABMFLN 12:26
PROVIDERS: ATTEND Family Medicine
DX: E11.40 Type 2 diabetes mellitus with diabetic neuropathy, unspecified (principal)

== ENCOUNTER → 2017-08-24 | Outpatient (CLI) | payer OTHER ==
[2017-08-24 11:41] LABS: BASO % 0.7 %; BASO ABS # 0.03 K/uL (0-0.2); EOS % 3.7 %; EOS ABS # 0.16 K/uL (0-0.5); IG# 0.01 K/uL (0.00-0.02); LYMPH % 36.6 %; LYMPH ABS # 1.58 K/uL (1.2-3.4); MEAN CORPUSCULAR HEMOGLOBIN 33.9 pg (25-34); MEAN CORPUSCULAR HGB CONC 36.1 g/dl (32-36); MEAN PLATELET VOLUME 10.9 fL (7.4-10.4); MONO % 7.9 %; MONO ABS # 0.34 K/uL (0.11-0.59); NEUT % 50.9 %; PLATELET COUNT 154 K/uL (130-400); RED CELL DISTRIBUTION WIDTH CV 13.6 % (11.5-14.5); RED CELL DISTRIBUTION WIDTH SD 46.6 fL (36.4-46.3); WHITE BLOOD COUNT 4.32 K/uL (4.8-10.8)
[2017-08-24 12:07] LABS: BLOOD UREA NITROGEN 17 mg/dl (7-18); CARBON DIOXIDE 26 mmol/L (21-32); CREATININE 0.89 mg/dl (0.60-1.40); GLUCOSE 119 mg/dl (70-99); POTASSIUM 4.2 mmol/L (3.5-5.1); SODIUM 138 mmol/L (136-145)
== END | disposition home or self-care (01) ==
LOC: C.LABSPEC 11:29
PROVIDERS: ATTEND Podiatrist Foot & Ankle Surgery
DX: M86.9 Osteomyelitis, unspecified (principal)

== ENCOUNTER 2017-08-27 17:04 | Emergency (ER) | payer OTHER ==
[~2017-08-27] VITALS: Ht 162.6 cm; Wt 112.2 kg
[2017-08-27 17:07] VITALS: TEMP 36.9; Ht 162.6 cm; Wt 112.2 kg
--- NOTE | 2017-08-27 18:13 | EMERGENCY ROOM VISIT NOTE ---
History First contact with patient: 17:09 Chief Complaint: PICC LINE CLOTTED Stated Complaint: PICK LINE WILL NOT WORK History of Present Illness The patient is a 62 year old male who presents to the Emergency Room with complaints of a clotted PICC line. The patient reports that he has a PICC line in his right upper arm. He has been receiving daily antibiotics for an amputation of his right second toe. He has 1 week of antibiotics left. He is receiving ceftriaxone and daptomycin daily. He states that yesterday, his antibiotics ran slower than normal and today he has had a difficult time flushing the PICC line. He believes it is clotted. He has not had previous issues with the PICC line. He denies any pain. He denies any fever/chills. Review of Systems A complete 10 point review of systems was reviewed with the patient with pertinent positives and negatives as per history of present illness. All else were negative. Past Medical/Surgical History Medical Problems: (1) Osteomyelitis Social History Smoking Status: Former Smoker Drug Use: none Marital Status: Occupation Status: employed Current/Historical Medications Scheduled Allopurinol (Zyloprim), 100 MG PO BID Atorvastatin (Lipitor), 40 MG PO HS Ceftriaxone Sod (Rocephin), 1 GM IV Q24H Colestipol Hcl (Colestipol Hcl), 1 GM PO BID Daptomycin (Daptomycin), 500 MG IV Q24H Glimepiride (Glimepiride), 1 MG PO QPM Hydrochlorothiazide (Hctz), 12.5 MG PO QAM Lisinopril (Zestril), 5 MG PO QPM Metformin Hcl (Glucophage), 1,000 MG PO BID Metoprolol Tartrate (Lopressor), 75 MG PO BID Physical Exam Vital Signs Date Time Temp Pulse Resp B/P (MAP) Pulse Ox O2 Delivery O2 Flow Rate FiO2 08/27/17 18:21 71 20 130/79 98 08/27/17 17:07 36.9 74 18 147/100 97 Room Air Physical Exam VITALS: Vitals are noted on the nurse's note and reviewed by myself. Vital signs stable. GENERAL: This is a 62-year-old male, in no acute distress, nondiaphoretic, well- developed well-nourished. SKIN: PICC line in place in the right upper arm. No evidence of surrounding erythema or swelling. NEURO: Patient was alert and oriented to person place and time. Medical Decision & Procedures Medical Decision Differential diagnosis includes infection, clotted PICC line, among others. The patient was evaluated as above. IV team evaluated the patient and was able to flush the PICC line without difficulty. The patient will be discharged home and continue his medications as prescribed. He was advised to keep follow-up with his PCP as scheduled. He verbalized understanding of my assessment and treatment plan and was discharged home in good condition. Medication Reconcilliation Current Medication List: was personally reviewed by me Blood Pressure Screening Patient's blood pressure: Normal blood pressure Impression Primary Impression: Occluded PICC line Departure Information Dispostion Home / Self-Care Condition GOOD Referrals No Doctor, Assigned (PCP) Patient Instructions [facility] Additional Instructions Follow-up with your primary care provider. Return to the emergency room if you have any other concerns or difficulties with your PICC line. Problem Qualifiers Primary Impression: Occluded PICC line Encounter type: initial encounter Qualified Codes: T82.898A - Other specified complication of vascular prosthetic devices, implants and grafts, initial encounter
[2017-08-27 18:21] VITALS: BP 130/79; PULSE 71; O2SAT 98
== END 2017-08-27 18:22 | disposition home or self-care (01) ==
LOC: C.EDB 17:05 → C.EDC 18:22
DX: T82.898A Other specified complication of vascular prosthetic devices, implants and grafts, initial encounter (principal); Y84.9 Medical procedure, unspecified as the cause of abnormal reaction of the patient, or of later complication, without mention of misadventure at the time of the procedure; Z89.421 Acquired absence of other right toe(s); Z79.2 Long term (current) use of antibiotics; Z87.891 Personal history of nicotine dependence; Z79.84 Long term (current) use of oral hypoglycemic drugs; Z79.899 Other long term (current) drug therapy

== ENCOUNTER → 2017-09-08 | Outpatient (CLI) | payer OTHER ==
[~2017-09-08] MED LIST changes: -CEFT1INJ57 IV; -MRLP17 PO; -OXYC-57 PO; -SENN8.6T7 PO
[2017-09-08 13:15] LABS: ALBUMIN 3.6 gm/dl (3.4-5.0); ALKALINE PHOSPHATASE 67 U/L (45-117); ALT/SGPT 46 U/L (12-78); AST/SGOT 37 U/L (15-37); BLOOD UREA NITROGEN 19 mg/dl (7-18); CARBON DIOXIDE 25 mmol/L (21-32); CHOLESTEROL 204 mg/dl (0-200); CREATININE 0.94 mg/dl (0.60-1.40); GLUCOSE 113 mg/dl (70-99); LDL CHOLESTEROL CALCULATED 125 mg/dl; POTASSIUM 4.4 mmol/L (3.5-5.1); SODIUM 138 mmol/L (136-145); TOTAL PROTEIN 8.3 gm/dl (6.4-8.2); URIC ACID 6.3 mg/dl (2.6-7.2)
[2017-09-08 13:25] LABS: HEMOGLOBIN A1C 6.6 % (4.5-5.6)
--- NOTE | 2017-09-09 10:22 | CODING QUERY NO DIAGNOSIS ---
TREATMENT RENDERED WITHOUT A DIAGNOSIS To promote full compliance with coding requirements relating to patient care, physician participation is requested in all cases of electrician outside uncertainty. Please assist us with providing a diagnosis/symptom for the test(s) below: A diagnosis/symptom was not documented on your Order. A valid diagnosis/symptom is required to bill all insurances. Please remember that we are unable to code a diagnosis of rule out, probable, possible, questionable, or suspected. Tests that require a diagnosis: DOS: 09/08/17 (No diagnosis on attached order) * Creatine Phosphokinase DIAGNOSIS: Provider Signature: Date: Thank you Maria Luisa Ding Health Information Management Once completed, please kindly fax back to [phone] For questions please call [phone]
== END | disposition home or self-care (01) ==
LOC: C.LABMFLN 10:05
PROVIDERS: ATTEND Podiatrist Foot & Ankle Surgery
DX: E78.00 Pure hypercholesterolemia, unspecified (principal); I10 Essential (primary) hypertension; M10.9 Gout, unspecified; E11.40 Type 2 diabetes mellitus with diabetic neuropathy, unspecified; L03.031 Cellulitis of right toe; L02.611 Cutaneous abscess of right foot; L97.516 Non-pressure chronic ulcer of other part of right foot with bone involvement without evidence of necrosis

== ENCOUNTER → 2017-09-22 | Outpatient (CLI) | payer OTHER ==
[~2017-09-22] MED LIST changes: -DAPT500I IV; +MULT-506 PO
[2017-09-22 12:58] LABS: BLOOD UREA NITROGEN 19 mg/dl (7-18); CREATININE 1.02 mg/dl (0.60-1.40)
--- NOTE | 2017-09-24 06:19 | CODING QUERY NO DIAGNOSIS ---
TREATMENT RENDERED WITHOUT A DIAGNOSIS To promote full compliance with coding requirements relating to patient care, physician participation is requested in all cases of calender machine operator helper uncertainty. Please assist us with providing a diagnosis/symptom for the test(s) below: A diagnosis/symptom was not documented on your Order. A valid diagnosis/symptom is required to bill all insurances. Please remember that we are unable to code a diagnosis of rule out, probable, possible, questionable, or suspected. Tests that require a diagnosis: * BUN DIAGNOSIS: * CREATINE DIAGNOSIS: * DOS: 09/22/17 Provider Signature: Date: Thank you Maribell Short Health Information Management Once completed, please kindly fax back to [phone] For questions please call [phone]
== END | disposition home or self-care (01) ==
LOC: C.LABMFLN 09:11
PROVIDERS: ATTEND Podiatrist Foot & Ankle Surgery
DX: L03.031 Cellulitis of right toe (principal); L97.516 Non-pressure chronic ulcer of other part of right foot with bone involvement without evidence of necrosis; L02.611 Cutaneous abscess of right foot

== ENCOUNTER 2022-02-28 16:30 | Observation (INO) ==
--- NOTE | 2022-02-28 18:20 | CT Scan Report ---
CT head/brain wo con CLINICAL HISTORY: Stroke Alert Technique: Contiguous axial CT images of the head were acquired from the base of the skull to the martinez spencer without intravenous contrast administration. Images were viewed in brain, subdural and bone [facility] . Automated dose lowering techniques and/or adjustment according to patient size were utilized for this exam. Comparison: Comparison is made to CT radiation therapy head 01/30/[address] head 01/25/2022 Findings: Multiple hypodense foci with surrounding vasogenic edema are seen compatible with hemorrhage in the p osterior brain. These include a right occipital lobe lesion measuring 14 mm and a left occipital lobe lesion measuring 16 mm. A soft tissue mass arising from the left frontotemporal scalp measures 13 x 41 mm. Of note, a few nonhemorrhagic foci are seen corresponding to previous metastatic lesions. Imaged portions of the paranasal sinuses and mastoid air cells are clear. The orbits appear normal. There are no acute fractures of the calvaria or scalp swelling. Impression: Multiple foci of hyperdensity with surrounding vasogenic edema are seen in the brain. These are favor ed to represent hemorrhagic metastases in this patient with known history of melanoma. These are less likely to to represent simple posttreatment changes status post radiotherapy. Primary left-sided sub cutaneous mass and nonhemorrhagic metastases are also seen. ACT 112: Negative or not required by law. Electronically signed by: Amando Melendez M.D. 02/28/2022 6:18 PM
[2022-02-28 19:21] LABS: Hematocrit (blood only) 34.3 % (40.1-51.0); Hemoglobin 11.8 g/dl (14.0-18.0); Mean Corpuscular Hemoglobin 32.3 pg (25.0-34.0); Mean Corpuscular Hgb Conc 34.4 g/dL (32.0-36.0); Mean Platelet Volume 10.2 fL (9.4-12.4); Platelet Count 153 K/uL (130-400); RDW Coefficient of Variation 14.3 % (11.5-14.5); RDW Standard Deviation 47.4 fL (36.4-46.3); Red Blood Count 3.65 M/uL (4.63-6.08); White Blood Count 6.99 K/ul (4.8-10.8)
[2022-02-28 19:42] LABS: Albumin Globulin Ratio 1.1 (0.9-2); Albumin Level 3.7 gm/dl (3.4-5.0); BUN Creatinine Ratio 23.2 (10-20); Bilirubin,Total 0.8 mg/dl (0.2-1.0); Calcium 9.1 mg/dl (8.5-10.1); Creatinine Clr Calc Pharmacy 87.9 ml/min; Est GFR (African American) 95.6 ml/min; Est GFR (Non-African American) 82.5 ml/min; Globulin 3.3 gm/dl (2.5-4.0); Magnesium 1.2 mg/dl (1.7-2.4); Partial Thromboplastin Ratio 0.9; Partial Thromboplastin Time 25.9 Seconds (21.0-31.0); Potassium 3.9 mmol/L (3.5-5.1)
--- NOTE | 2022-02-28 19:51 | Emergency Department Note ---
History of Present Illness General Chief complaint: Stroke/CVA Symptoms Stated complaint: STROKE SYSTEMS, REFERREDBY DOC,BLURRY VISION Time Seen by Provider: 02/28/22 19:13 History of Present Illness This 67-year-old with metastatic melanoma to the brain currently on chemotherapy presents to the ER complaining of left eye droopiness and hand tingling for the past few days Location: Generalized Quality: Weak Severity: Moderate Duration: Past few days Timing: Started few days ago Context: Family was concerned and brought the patient in Modifying factors: better with nothing; worse with nothing Patient and family report that his left eye has been drooping but seems to be improved now and has had some tingling in his left hand. He currently receives Keytruda every 3 weeks. No recent radiation. He is on steroids of dexamethasone 2 mg per the oncologist. Patient denies chest pain, dyspnea, h eadache, neck stiffness, localized weakness. Patient is following all commands. Home Medications Medication Instructions Recorded Confirmed Type blood sugar diagnostic (OneTouch #100 ea 02/02/19 02/10/22 Rx Ultra Blue Test Strip) lancets 33 gauge (OneTouch Delica #100 ea 02/02/19 02/10/22 Rx Lancets) acetaminophen 325 mg tablet 325 mg PO QID PRN pain #90 tabs 05/31/19 02/28/22 Rx blood-glucose meter #1 ea 11/14/19 02/10/22 Rx colestipol 1 gram tablet 1 g PO BID #60 tabs 05/03/21 02/28/22 Rx metformin 1,000 mg tablet 1,000 mg PO BID #180 tabs 12/24/21 02/28/22 Rx allopurinol 100 mg tablet 100 mg PO BID #180 tabs 12/25/21 02/28/22 Rx atorvastatin 80 mg tablet 40 mg PO BID 01/07/22 02/28/22 History lorazepam 0.5 mg tablet 0.5 mg PO TID PRN anxiety #30 tabs 01/30/22 02/28/22 Rx tramadol 50 mg tablet 50 mg PO Q8H PRN pain #60 tabs 01/30/22 02/28/22 Rx omeprazole 40 mg capsule,delayed 40 mg PO QAM #30 caps 02/03/22 02/28/22 Rx release ondansetron HCl 8 mg tablet 8 mg PO Q8H PRN nausea and 02/03/22 02/28/22 Rx vomiting #30 tabs memantine 10 mg tablet (Namenda) 10 mg PO BID #60 tabs 02/26/22 02/28/22 Rx lisinopril 2.5 mg tablet 2.5 mg PO DAILY #30 tabs 02/27/22 02/28/22 Rx metoprolol succinate 25 mg 25 mg PO DAILY #30 tabs 02/27/22 02/28/22 Rx tablet,extended release 24 hr cholecalciferol (vitamin D3) 50 50 mcg PO DAILY 02/28/22 02/28/22 History mcg (2,000 unit) capsule (Vitamin D3) coenzyme Q10 100 mg capsule 100 mg PO DAILY 02/28/22 02/28/22 History (CoQ-10) dexamethasone 2 mg tablet 2 mg PO DIRECTED 02/28/22 02/28/22 History gabapentin 100 mg capsule 100 mg PO BID 02/28/22 02/28/22 History magnesium chloride 64 mg 64 mg PO DAILY 02/28/22 02/28/22 History (magnesium chloride) tablet,delayed release oxycodone 5 mg tablet 5 mg PO Q4H PRN Pain 02/28/22 02/28/22 History Allergies Allergy/AdvReac Type Severity Reaction Status Date / Time lovastatin Allergy Unknown CAN'T Verified 02/28/22 21:44 REMEMBER simvastatin Allergy Unknown CAN'T Verified 02/28/22 21:44 REMEMBER prochlorperazine AdvReac Intermediate Nausea Verified 03/01/22 00:09 [From Compazine] Past Med/Surg History Medical History Amputated toe Right and Left Amputated toe of left foot Benign essential hypertension BPPV (benign paroxysmal positional vertigo) Changing skin lesion Controlled diabetes mellitus with diabetic neuropathy, without long-term current use of insulin Cough COVID-19 virus infection Diabetic peripheral neuropathy associated with type 2 diabetes mellitus Diverticulitis GERD (gastroesophageal reflux disease) Gout History of arteriography Hypercholesterolemia Lightheadedness 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 Brother No problems noted. Brother No problems noted. Uncle Lung cancer Other No family history of adverse response to anesthesia No pertinent family history Social History Smoking Status: Never smoker packs per day: 0.5; Smoking End Date: 1994; Second Hand Exposure: No; Hx Alcohol Use: Yes Alcohol type: beer Alcohol Intake Frequency: 4 or More x per/Week Alcohol Intake Frequency Comment: average one drink per day, or less Hx Substance Use: No Preferred Language: Monegasque Communication Ability: Effective Visual Impairment: Limited Hearing Ability: Normal Auto Repair Technician Required: No Beliefs That Will Affect Care: None marital status: Current Living Situation: Spouse current occupational status: employed current occupation: works in [employer] How many Children do You have: 2 Other Information That Helps Us Care for You: No Feels Safe at Home: Yes Safety Concerns: Feels Safe At This Time Childhood Exposure to Second-Hand Smoke: No during the past year weight has: remained stable Seatbelt Use: always Assistive Devices: Glasses Review of Systems A total of 10 systems reviewed and were otherwise negative Physical Exam Vital Signs Vital Signs - 24 hr 02/28/22 16:40 02/28/22 19:06 02/28/22 19:37 Temperature 36.8 C Temperature Source Temporal Artery Scan Pulse Rate 96 H Pulse Rate [Finger] 70 Pulse Rhythm [Finger] Regular Pulse Strength [Finger] Normal Respiratory Rate 18 17 Respiratory Effort / Characteristics Non-Labored Non-Labored Spontaneous Respiratory Depth Normal Normal Respiratory Pattern Regular Blood Pressure 132/88 Blood Pressure [Left Arm] 129/74 Blood Pressure Mean 102 Blood Pressure Mean [Left Arm] 92 Blood Pressure Position [Left Arm] Sitting Pulse Oximetry 97 96 Oxygen Delivery Method Room Air Room Air Room Air Sepsis Recent Fever Within 48 Hours No Sepsis New/Unexplained Change in Mental Status No Sepsis Action Taken by Nursing No Action Required Pulse Oximetry Post Tiitration 98 02/28/22 21:00 Temperature Temperature Source Pulse Rate Pulse Rate [Finger] 98 H Pulse Rhythm [Finger] Regular Pulse Strength [Finger] Normal Respiratory Rate 20 Respiratory Effort / Characteristics Non-Labored Respiratory Depth Normal Respiratory Pattern Blood Pressure Blood Pressure [Left Arm] 139/78 Blood Pressure Mean Blood Pressure Mean [Left Arm] 98 Blood Pressure Position [Left Arm] Sitting Pulse Oximetry 98 Oxygen Delivery Method Room Air Sepsis Recent Fever Within 48 Hours Sepsis New/Unexplained Change in Mental Status Sepsis Action Taken by Nursing Pulse Oximetry Post Tiitration VITALS: Vitals are noted on the nurse's note and reviewed by myself. Vital signs stable. GENERAL: Pleasant gentleman following commands, in no acute distress, nondiaphoretic, well-developed well-nourished. SKIN: Left scalp wound, the rest of the skin was without rashes, erythema, edema, or bruising. There is no tenting of the skin. Capillary reflex less than 2 seconds. HEAD: Normocephalic atraumatic. EARS: External auditory canals clear, tympanic membranes pearly sotelo without erythema or effusion bilaterally. EYES: Pupils equal round and reactive to light and accommodation. Conjunctivae without injection, sclerae without icterus. Extraocular movements intact. NOSE: Patent, turbinates without inflammation or discharge. No sinus tenderness. MOUTH: Mucous membranes moist. Pharynx without erythema or exudate. Uvula midline. Airway patent. Tongue does not deviate. NECK: Supple without nuchal rigidity. No thyromegaly. Cervical spine is nontender. No JVD. HEART: Regular rate and rhythm LUNGS: Clear to auscultation bilaterally without wheezes, rales or rhonchi. No retractions or accessory muscle use. ABDOMEN: Positive bowel sounds x 4. Normal tympanic percussion. Soft, nontender, without masses or organomegaly. Glez sign negative. No guarding or rebound tenderness. No CVA tenderness MUSCULOSKELETAL: No muscle atrophy, erythema, or edema noted. 5-5 strength t hroughout NEURO: Patient was alert and oriented to person place and time. Normal sensation to light and sharp touch. Cranial nerves II through XII grossly intact. No pronator drift. Cerebellar exam intact. No focal neurological deficits. Course Administered Medications Magnesium Sulfate/Dextrose (Magnesium Sulfate / D5w) 1 gm in 100 mls @ 100 mls/hr IV Q1H IVA Stop: 03/01/22 01:16 Last Admin: 03/01/22 00:41 Dose: 100 mls/hr Documented By: JENNY Discontinued Medications Dexamethasone Sodium Phosphate (DexamethasonePf 10 Mg/Ml Vial) 10 mg IV NOW ONE Stop: 02/28/22 20:51 Last Admin: 02/28/22 21:06 Dose: 10 mg Documented By: JOSUÉ Gadobutrol (Gadobutrol 65ml Vial) 10.5 ml IV ONCE ONE Stop: 02/28/22 20:26 Last Admin: 02/28/22 20:25 Dose: 10.5 ml Documented By: JUVENAL Ketorolac Tromethamine (Ketorolac Tromethamine 15 Mg/Ml Vial) 10 mg IV NOW STA Stop: 02/28/22 20:53 Last Admin: 02/28/22 21:06 Dose: Not Given Documented By: JOSUÉ Medical Decision Making Medical Records Attestation: I reviewed the patient's medical records. Home Medications Current Medication List: was personally reviewed by me Laboratory Data Attestation: I reviewed the patient's lab results. Result diagrams: 02/28/22 17:00 02/28/22 17:00 Lab Results 02/28/22 02/28/22 02/28/22 Range/Units 17:00 17:00 17:00 WBC 6.99 (4.8-10.8) K/ul RBC 3.65 L (4.63-6.08) M/uL Hgb 11.8 L (14.0-18.0) g/dl Hct 34.3 L (40.1-51.0) % MCV 94.0 (80.0-100.0) fL MCH 32.3 (25.0-34.0) pg MCHC 34.4 (32.0-36.0) g/dL RDW Std Deviation 47.4 H (36.4-46.3) fL RDW Coeff of Velia 14.3 (11.5-14.5) % Plt Count 153 (130-400) K/uL MPV 10.2 (9.4-12.4) fL PT 11.0 (9.0-12.0) Seconds INR 1.0 (0.9-1.1) APTT 25.9 (21.0-31.0) Seconds PTT Ratio 0.9 Sodium 135 L (136-145) mmol/L Potassium 3.9 (3.5-5.1) mmol/L Chloride 100 (98-107) mmol/L Carbon Dioxide 27 (21-32) mmol/L Anion Gap 8 (3-11) BUN 22 (6-23) mg/dl Creatinine 0.95 (0.6-1.4) mg/dl Est Cr Clr Drug Dosing 87.9 ml/min Est GFR ( Amer) 95.6 ml/min Est GFR (Non-Af Amer) 82.5 ml/min BUN/Creatinine Ratio 23.2 H (10-20) Glucose 125 H (70-99(Fasting)) mg/dl Calcium 9.1 (8.5-10.1) mg/dl Magnesium 1.2 L (1.7-2.4) mg/dl Total Bilirubin 0.8 (0.2-1.0) mg/dl AST 25 (13-39) U/L ALT 21 (7-52) U/L Alkaline Phosphatase 62 (34-104) U/L Troponin I High Sens (0-20) pg/ml Total Protein 7.0 (6.0-8.3) gm/dl Albumin 3.7 (3.4-5.0) gm/dl Globulin 3.3 (2.5-4.0) gm/dl Albumin/Globulin Ratio 1.1 (0.9-2) 02/28/22 02/28/22 Range/Units 17:00 21:05 WBC (4.8-10.8) K/ul RBC (4.63-6.08) M/uL Hgb (14.0-18.0) g/dl Hct (40.1-51.0) % MCV (80.0-100.0) fL MCH (25.0-34.0) pg MCHC (32.0-36.0) g/dL RDW Std Deviation (36.4-46.3) fL RDW Coeff of Velia (11.5-14.5) % Plt Count (130-400) K/uL MPV (9.4-12.4) fL PT (9.0-12.0) Seconds INR (0.9-1.1) APTT (21.0-31.0) Seconds PTT Ratio Sodium (136-145) mmol/L Potassium (3.5-5.1) mmol/L Chloride (98-107) mmol/L Carbon Dioxide (21-32) mmol/L Anion Gap (3-11) BUN (6-23) mg/dl Creatinine (0.6-1.4) mg/dl Est Cr Clr Drug Dosing ml/min Est GFR ( Amer) ml/min Est GFR (Non-Af Amer) ml/min BUN/Creatinine Ratio (10-20) Glucose (70-99(Fasting)) mg/dl Calcium (8.5-10.1) mg/dl Magnesium (1.7-2.4) mg/dl Total Bilirubin (0.2-1.0) mg/dl AST (13-39) U/L ALT (7-52) U/L Alkaline Phosphatase (34-104) U/L Troponin I High Sens 10.4 10.9 (0-20) pg/ml Total Protein (6.0-8.3) gm/dl Albumin (3.4-5.0) gm/dl Globulin (2.5-4.0) gm/dl Albumin/Globulin Ratio (0.9-2) Imaging Data Attestation: I personally reviewed and interpreted this imaging study as fol lows: Radiologist's Impression: Head CT 02/28/22 16:44 CT head/brain wo con CLINICAL HISTORY: Stroke Alert Technique: Contiguous axial CT images of the head were acquired from the base of the skull to the vertex without intravenous contrast administration. Images were viewed in brain, subdural and bone windows. Automated dose lowering techniques and/or adjustment according to patient size were utilized for this exam. Comparison: Comparison is made to CT radiation therapy head 01/30/[address] head 01/25/2022 Findings: Multiple hypodense foci with surrounding vasogenic edema are seen compatible with hemorrhage in the posterior brain. These include a right occipital lobe lesion measuring 14 mm and a left occipital lobe lesion measuring 16 mm. A soft tissue mass arising from the left frontotemporal scalp measures 13 x 41 mm. Of note, a few nonhemorrhagic foci are seen corresponding to previous metastatic lesions. Imaged portions of the paranasal sinuses and mastoid air cells are clear. The orbits appear normal. There are no acute fractures of the calvaria or scalp swelling. Impression: Multiple foci of hyperdensity with surrounding vasogenic edema are seen in the brain. These are favored to represent hemorrhagic metastases in this patient with known history of melanoma. These are less likely to to represent simple posttreatment changes status post radiotherapy. Primary left-sided subcutaneous mass and nonhemorrhagic metastases are also seen. ACT 112: Negative or not required by law. Electronically signed by: Amando Melendez M.D. 02/28/2022 6:18 PM Brain MRI 02/28/22 19:32 MR brain wo/w con CLINICAL HISTORY: brain mets, ? ICH TECHNIQUE: Multiplanar and multisequence MR images of the brain were obtained prior to and following administration of gadolinium contrast. Comparison: Comparison is made to CTA head 02/28/[address] head 01/25/2022 FINDINGS: No abnormal restricted diffusion is identified in the brain, restricted diffusion is noted in the primary focus of melanoma in the left temporal soft tissues. Multiple enhancing foci are noted compatible with metastatic disease in this patient with known intracranial melanoma metastases. In addition, there is susceptibility artifact in some of these lesions with surrounding vasogenic edema. The ventricular system is normal in appearance. There is no mass effect or midline shift. No extra axial fluid collections are seen. The corpus callosum, pituitary gland, and cerebellar tonsils appear grossly unremarkable. Flow voids of the major intracranial arterial vessels are identified. The imaged portions of the paranasal sinuses, mastoid air cells, and orbits are unremarkable. IMPRESSION: Findings are compatible with extensive known intracranial metastatic disease in this patient with primary melanoma, with hemorrhage of some of the metastases. There is associated vasogenic edema without evidence of midline shift. ACT 112: Negative or not required by law. Electronically signed by: Amando Melendez M.D. 02/28/2022 9:11 PM MDM Narrative Prior records/ancillary studies reviewed and summarized above. Nursing notes reviewed. Additional history obtained from family. The patient's history was concerning for left eye droopiness and arm tingling with known melanoma with metastases to the brain. Differential diagnosis: Etiologies such as progression of cancer, metabolic, infection, hypo/hyperglycemia, electrolyte abnormalities, cardiac sources, intracerebral event, toxicologic, neurologic, as well as others were entertained. Physical examination: As above. ER treatment provided: IV Lock An order was placed for continuous cardiac monitoring. The monitor shows a rate of 60-100 with a sinus rhythm. Decadron On reassessment the patient felt better. Diagnostics interpretation by me: ECG: Ordered for weakness EKG: Normal sinus, occasional PVC, no acute ST-T changes. Impression normal sinus rhythm with occasional PAC interpreted by myself I think arrhythmia is unlikely. EKG shows normal sinus rhythm with no interval abnormalities such as QT prolongation or WPW. There are no findings to suggest Brugada syndrome. Cardiac monitoring in the emergency department reveals no tachycardic or bradycardic dysrhythmia. Hypertrophic cardiomyopathy was considered but there are no clear historical elements pointing toward this. EKG is not suggestive. The QRS voltage is not extremely large and there are no suggestive Q waves. The labs revealed low magnesium, 2 negative troponins Imaging studies: As above Consultation: A consultation was placed with the oncologist at [facility] Dr. Sheppard. The case was discussed and diagnostics were reviewed. He recommends 10 of Decadron IV now and then increase the Decadron to 4 mg twice daily and follow-up with his oncologist Thursday for reevaluation. Medicine is consulted and will evaluate for possible admission. Exam and history seem consistent with progression of metastatic melanoma. Medicine and oncology were consulted. They will evaluate for admission. Patient was given steroids as recommended by oncology at [facility]. Magnesium was ordered. Patient and family are agreeable to treatment plan of admission. By the evaluation outlined above emergent etiologies such as infection, electrolyte abnormalities, cardiac sources, toxologic, abnormalities blood glucose, metabolic, as well as others were deemed relatively unlikely. The pt informed about the findings as listed above. All questions were answered and pleased with the treatment. The chart was completed utilizing [employer] Speech voice recognition software. Grammatical errors, random word insertions, pronoun errors, and incomplete sentences are an occassional consequence of this system due to software limitations, ambient noise, and hardware issues. Any formal questions or concerns about the content, text, or information contained within the body of this dictation should be directly addressed to the physician boilermaker's assistant for clarification. Impression & Plan Malignant melanoma metastatic to brain Discharge Plan Visit Data Chief Complaint: Stroke/CVA Symptoms Stated Complaint: STROKE SYSTEMS, REFERREDBY DOC,BLURRY VISION ED Provider: Breanna Meyers ED Midlevel Provider: Therese Mckee Discharge Problem: Malignant melanoma metastatic to brain Patient Disposition: Being Evaluated by Hospitalist Condition: Fair
[2022-02-28] MEDS ORDERED: GADOBUTROL 65ML VIAL IV ONE (20:25)
[2022-02-28] MEDS ORDERED: dexAMETHasone**PF** 10 MG/ML VIAL IV ONE (20:50)
[2022-02-28] MEDS ORDERED: KETOROLAC TROMETHAMINE 15 MG/ML VIAL IV STA (20:52)
--- NOTE | 2022-02-28 21:14 | Magnetic Resonance Report ---
MR brain wo/w con CLINICAL HISTORY: brain mets, ? ICH TECHNIQUE: Multiplanar and multisequence MR images of the brain were obtained prior to and following administration of gadolinium contrast. Comparison: Comparison is made to CTA head 02/28/[address] head 01/25/2022 FINDINGS: No abnormal restricted diffusion is identified in the brain, restricted diffusion is noted in the cristal nguyen focus of melanoma in the left temporal soft tissues. Multiple enhancing foci are noted compatibl e with metastatic disease in this patient with known intracranial melanoma metastases. In addition, t here is susceptibility artifact in some of these lesions with surrounding vasogenic edema. The ventri cular system is normal in appearance. There is no mass effect or midline shift. No extra axial fluid collections are seen. The corpus callosum, pituitary gland, and cerebellar tonsils appear grossly unr emarkable. Flow voids of the major intracranial arterial vessels are identified. The imaged portions of the para nasal sinuses, mastoid air cells, and orbits are unremarkable. IMPRESSION: Findings are compatible with extensive known intracranial metastatic disease in this patient with cristal nguyen melanoma, with hemorrhage of some of the metastases. There is associated vasogenic edema without evidence of midline shift. ACT 112: Negative or not required by law. Electronically signed by: Amando Melendez M.D. 02/28/2022 9:11 PM
--- NOTE | 2022-02-28 21:28 | History & Physical Report ---
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 Clinically stable. - transient, no droop appreciated on my exam - most likely 2/2 known brain mets; per MRI today, some of the mets include hemorrhage; appears new compared to MRI at [facility] last month. vasogenic edema w/o evidence of midline shift. - also considered TIA/CVA from ischemic causes, but lower suspicion in overall context - neuro checks per protocol - consult neurology - continue dexamethasone for cerebral edema 2/2 brain mets; 10mg dexamethasone PF in ED. 4mg dexamethasone q12h ordered following; deferring to neuro regarding frequency/dose adjustment - aim for systolic BP <140 in setting of hemorrhage noted in brain mets; acuity of the hemorrhage unknown. 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 check a1c in AM. check bsg achs. loose sliding scale. add basal coverage if needed. (4) Benign essential hypertension: Plan: - continue home medicine (5) Hypomagnesemia: Plan: - 1.2. repleting. 2 bags ordered in ED. 3 additional bags ordered (6) Hypercholesterolemia: Plan: - continue home statin. check lipid panel (7) Anxiety: Plan: - continue prn ativan, but at reduced frequency (8) Gout: Plan: - continue home allopurinol Plan DM2 diet SCDs only full code, discussed in detail w/ patient med tele History of Present Illness Chief Complaint: stroke like symptoms Primary Care Provider: Manuel Santiago MD 67 y/o male w/ PMHx of DM, melanoma w/ brain mets, BPPV, osteoporosis, HLD, HTN, and gout who presents w/ left eye droop, noticed by his daughter early afternoon today. She also noticed smaller L pupil and possible altered responsiveness to light. Per patient, his symptoms persisted all day. He denies any other symptoms and feels at baseline. No headache, blurry vision, diplopia, or confusion. He was seen in the ED yesterday for electrolyte repletion (hypomg 1.2, hypo phos). Per oncology notes, he completed whole brain radiation therapy on 02/14/22. He was started on q3w Keytruda recently and has had 2 doses, last dose on 02/21/22. Several weeks ago, he had several episodes seizure-like activity and was seen at [facility] ED. He states he was not started on antiepileptic medications and the seizure like activity has not returned. ED course: dexamethasone PF 10mg IV. MRI brain w/ and w/o contrast: extensive known intracranial mets, w/ hemorrhage of some of the mets. Associated vasogenic edema w/o midline shift. ED spoke w/ on-call neurologist regarding patient dispo; appropriate to be admitted to [facility]. no leukocytosis. Hb 11.8, stable. INR 1.0. Na 135. Cr .95. Mg 1.2. cxr, ecg reviewed. Allergies Allergy/AdvReac Type Severity Reaction Status Date / Time lovastatin Allergy Unknown CAN'T Verified 02/28/22 21:44 REMEMBER simvastatin Allergy Unknown CAN'T Verified 02/28/22 21:44 REMEMBER prochlorperazine AdvReac Intermediate Nausea Verified 03/01/22 00:09 [From Compazine] Home Medications Medication Instructions Recorded Confirmed Type blood sugar diagnostic (OneTouch #100 ea 02/02/19 02/10/22 Rx Ultra Blue Test Strip) lancets 33 gauge (OneTouch Delica #100 ea 02/02/19 02/10/22 Rx Lancets) acetaminophen 325 mg tablet 325 mg PO QID PRN pain #90 tabs 05/31/19 02/28/22 Rx blood-glucose meter #1 ea 11/14/19 02/10/22 Rx colestipol 1 gram tablet 1 g PO BID #60 tabs 05/03/21 02/28/22 Rx metformin 1,000 mg tablet 1,000 mg PO BID #180 tabs 12/24/21 02/28/22 Rx allopurinol 100 mg tablet 100 mg PO BID #180 tabs 12/25/21 02/28/22 Rx atorvastatin 80 mg tablet 40 mg PO BID 01/07/22 02/28/22 History lorazepam 0.5 mg tablet 0.5 mg PO TID PRN anxiety #30 tabs 01/30/22 02/28/22 Rx tramadol 50 mg tablet 50 mg PO Q8H PRN pain #60 tabs 01/30/22 02/28/22 Rx omeprazole 40 mg capsule,delayed 40 mg PO QAM #30 caps 02/03/22 02/28/22 Rx release ondansetron HCl 8 mg tablet 8 mg PO Q8H PRN nausea and 02/03/22 02/28/22 Rx vomiting #30 tabs memantine 10 mg tablet (Namenda) 10 mg PO BID #60 tabs 02/26/22 02/28/22 Rx cholecalciferol (vitamin D3) 50 50 mcg PO DAILY 02/28/22 02/28/22 History mcg (2,000 unit) capsule (Vitamin D3) coenzyme Q10 100 mg capsule 100 mg PO DAILY 02/28/22 02/28/22 History (CoQ-10) gabapentin 100 mg capsule 100 mg PO BID 02/28/22 02/28/22 History oxycodone 5 mg tablet 5 mg PO Q4H PRN Pain 02/28/22 02/28/22 History dexamethasone 4 mg tablet 4 mg PO BID #60 tabs 03/01/22 Rx lisinopril 10 mg tablet 10 mg PO DAILY #30 tabs 03/01/22 Rx magnesium oxide 400 mg PO BID #60 tabs 03/01/22 Rx metoprolol succinate 50 mg 50 mg PO DAILY #30 tabs 03/01/22 Rx tablet,extended release 24 hr Past Med/Surg History Medical History Amputated toe Right and Left Amputated toe of left foot Benign essential hypertension BPPV (benign paroxysmal positional vertigo) Changing skin lesion Controlled diabetes mellitus with diabetic neuropathy, without long-term current use of insulin Cough COVID-19 virus infection Diabetic peripheral neuropathy associated with type 2 diabetes mellitus Diverticulitis GERD (gastroesophageal reflux disease) Gout History of arteriography Hypercholesterolemia Lightheadedness 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 Brother No problems noted. Brother No problems noted. Uncle Lung cancer Other No family history of adverse response to anesthesia No pertinent family history Social History Smoking Status: Never smoker packs per day: 0.5; Second Hand Exposure: No; Hx Alcohol Use: Yes Alcohol type: beer Alcohol Intake Frequency: 4 or More x per/Week Alcohol Intake Frequency Comment: average one drink per day, or less Hx Substance Use: No Preferred Language: German Communication Ability: Effective Visual Impairment: Limited Hearing Ability: Normal Equity Sales Assistant Required: No Beliefs That Will Affect Care: None marital status: Current Living Situation: Spouse current occupational status: employed current occupation: works in truck [employer] How many Children do You have: 2 Feels Safe at Home: Yes Childhood Exposure to Second-Hand Smoke: No during the past year weight has: remained stable Seatbelt Use: always Assistive Devices: None Review of Systems Review of Systems: All systems reviewed & are unremarkable except as noted in HPI & below Physical Exam Physical Exam: General: A&O x4. NAD. Cooperative. HEENT: Atraumatic, normocephalic. EOMI. Pupils reactive to light bilaterally. + anisocoria, left pupil smaller. No nystagmus. Pulm: CTAB. -wheezes, -rales, -rhonchi. No respiratory distress. Cardiac: RRR, -mrg. Radial pulses intact and symmetrical. Abdominal: Nontender, nondistended, soft. Neuro: CN II-XII intact. No dysmetria. Normal strength and sensation of extremities. No facial droop. Integ: L lateral-anterior scalp has exophytic mass, covered by gauze. Results & Data Results & Data ([facility]) Vital Signs (Past 12 Hours) Vital Signs Temp Pulse Pulse Resp BP BP Pulse Ox 02/28/22 21:00 98 H 20 139/78 98 02/28/22 19:37 02/28/22 19:06 70 17 129/74 96 02/28/22 16:40 36.8 C 96 H 18 132/88 97 O2 Del Method 02/28/22 21:00 Room Air 02/28/22 19:37 Room Air 02/28/22 19:06 Room Air 02/28/22 16:40 Room Air Laboratory Results Cardiac Enzymes 02/28/22 02/28/22 Range/Units 17:00 17:00 AST 25 (13-39) U/L Troponin I High Sens 10.4 (0-20) pg/ml Coagulation 02/28/22 Range/Units 17:00 PT 11.0 (9.0-12.0) Seconds APTT 25.9 (21.0-31.0) Seconds CBC 02/28/22 Range/Units 17:00 WBC 6.99 (4.8-10.8) K/ul RBC 3.65 L (4.63-6.08) M/uL Hgb 11.8 L (14.0-18.0) g/dl Hct 34.3 L (40.1-51.0) % Plt Count 153 (130-400) K/uL Comprehensive Metabolic Panel 02/28/22 Range/Units 17:00 Sodium 135 L (136-145) mmol/L Potassium 3.9 (3.5-5.1) mmol/L Chloride 100 (98-107) mmol/L Carbon Dioxide 27 (21-32) mmol/L BUN 22 (6-23) mg/dl Creatinine 0.95 (0.6-1.4) mg/dl Glucose 125 H (70-99(Fasting)) mg/dl Calcium 9.1 (8.5-10.1) mg/dl AST 25 (13-39) U/L ALT 21 (7-52) U/L Alkaline Phosphatase 62 (34-104) U/L Total Protein 7.0 (6.0-8.3) gm/dl Albumin 3.7 (3.4-5.0) gm/dl Intake and Output 02/28/22 02/28/22 02/28/22 06:59 14:59 22:59 Other: Weight 103.4 kg Weight Measurement Method Chair Scale Patient Weight 03/01/22 06:59 Weight 103.4 kg Diagnostic Findings Head CT 02/28/22 16:44 CT head/brain wo con CLINICAL HISTORY: Stroke Alert Technique: Contiguous axial CT images of the head were acquired from the base of the skull to the vertex without intravenous contrast administration. Images were viewed in brain, subdural and bone windows. Automated dose lowering techniques and/or adjustment according to patient size were utilized for this exam. Comparison: Comparison is made to CT radiation therapy head 01/30/[address] head 01/25/2022 Findings: Multiple hypodense foci with surrounding vasogenic edema are seen compatible with hemorrhage in the posterior brain. These include a right occipital lobe lesion measuring 14 mm and a left occipital lobe lesion measuring 16 mm. A soft tissue mass arising from the left frontotemporal scalp measures 13 x 41 mm. Of note, a few nonhemorrhagic foci are seen corresponding to previous metastatic lesions. Imaged portions of the paranasal sinuses and mastoid air cells are clear. The o rbits appear normal. There are no acute fractures of the calvaria or scalp swelling. Impression: Multiple foci of hyperdensity with surrounding vasogenic edema are seen in the brain. These are favored to represent hemorrhagic metastases in this patient with known history of melanoma. These are less likely to to represent simple posttreatment changes status post radiotherapy. Primary left-sided subcutaneous mass and nonhemorrhagic metastases are also seen. ACT 112: Negative or not required by law. Electronically signed by: Amando Melendez M.D. 02/28/2022 6:18 PM Brain MRI 02/28/22 19:32 MR brain wo/w con CLINICAL HISTORY: brain mets, ? ICH TECHNIQUE: Multiplanar and multisequence MR images of the brain were obtained prior to and following administration of gadolinium contrast. Comparison: Comparison is made to CTA head 02/28/[address] head 01/25/2022 FINDINGS: No abnormal restricted diffusion is identified in the brain, restricted dif fusion is noted in the primary focus of melanoma in the left temporal soft tissues. Multiple enhancing foci are noted compatible with metastatic disease in this patient with known intracranial melanoma metastases. In addition, there is susceptibility artifact in some of these lesions with surrounding vasogenic edema. The ventricular system is normal in appearance. There is no mass effect or midline shift. No extra axial fluid collections are seen. The corpus callosum, pituitary gland, and cerebellar tonsils appear grossly unremarkable. Flow voids of the major intracranial arterial vessels are identified. The imaged portions of the paranasal sinuses, mastoid air cells, and orbits are unremarkable. IMPRESSION: Findings are compatible with extensive known intracranial metastatic disease in this patient with primary melanoma, with hemorrhage of some of the metastases. There is associated vasogenic edema without evidence of midline shift. ACT 112: Negative or not required by law. Electronically signed by: Amando Melendez M.D. 02/28/2022 9:11 PM Code Status & VTE Plan Code Status full VTE Prophylaxis Plan VTE Prophylaxis will be ordered: Yes Supervising Physician Co-Signing Physician Notes Attending addendum: I have physically seen this patient, have supervised the medical residents activities, and agree with the H&P unless as otherwise noted. Assessment and Plan: Melanoma with hemorrhagic metastases to brain with edema- As per recommendation from his oncologist, give dexamethasone 10 mg IV now, then 4 mg IV twice daily Follow clinical examination regarding facial droop and any potential new symptoms Neurology aware and will follow Avoiding NSAIDs and anticoagulants Patient considering establishing with local oncology Completed recent course of whole brain radiation, and presently on Keytruda Hypomagnesemia- Magnesium 1.2 on admission Replace IV and recheck laboratories in a.m. Diabetes mellitus- Poor oral intake, will therefore hold home medications Placed on Accu-Cheks with NovoLog coverage per scale Remaining orders and notations as noted Resident Activity Tracking Resident Involvement: Resident Care Provided Care Provided: Adult [facility]
[2022-02-28] MEDS ORDERED: GLUCOSE 10 TAB/TUBE PO PRN (23:35)
[2022-02-28] MEDS ORDERED: GLUCOSE 40% GEL 15 GM TUBE PO PRN (23:35)
[2022-02-28] MEDS ORDERED: DEXTROSE 50% 50 ML SYRINGE IV PRN (23:35)
[2022-02-28] MEDS ORDERED: GLUCAGON FOR INJ 1 MG VIAL SQ PRN (23:35)
[2022-02-28] MEDS ORDERED: CARBOHYDRATES FOR HYPOGLYCEMIA PO PRN (23:35)
[2022-02-28] MEDS ORDERED: ONDANSETRON INJ 2 MG/ML 2 ML VIAL IV PRN (23:58)
[2022-02-28] MEDS ORDERED: LORazepam 0.5 MG TAB PO PRN (23:58)
[2022-02-28] MEDS ORDERED: PHARMACIST DISCHARGE MED REC CONSULT PRN (23:58)
[2022-02-28] MEDS ORDERED: ACETAMINOPHEN 325 MG TAB PO PRN (23:58)
[2022-03-01] MEDS: MAGNESIUM SULFATE / D5W 1 GM/100 ML BAG IV SCH ×5 (00:41→08:21)
[2022-03-01 04:19] LABS: Eosinophils # (auto) 0.01 K/uL (0-0.50); Eosinophils % (auto) 0.2 %; Hematocrit (blood only) 30.9 % (40.1-51.0); Hemoglobin 10.6 g/dl (14.0-18.0); Immature Granulocytes # (auto) 0.02 K/uL (0.00-0.02); Immature Granulocytes % (auto) 0.4 %; Lymphocytes # (auto) 0.62 K/uL (1.2-3.4); Lymphocytes % (auto) 13.6 %; Mean Platelet Volume 10.4 fL (9.4-12.4); Monocytes % (auto) 2.2 %; Neutrophils # (auto) 3.82 K/uL (1.4-6.5); Neutrophils % (auto) 83.6 %; Platelet Count 123 K/uL (130-400); White Blood Count 4.57 K/ul (4.8-10.8)
[2022-03-01 04:37] LABS: Mean Corpuscular Hemoglobin 32.3 pg (25.0-34.0); Mean Corpuscular Hgb Conc 34.3 g/dL (32.0-36.0); Mean Corpuscular Volume 94.2 fL (80.0-100.0); RDW Coefficient of Variation 14.1 % (11.5-14.5); RDW Standard Deviation 47.8 fL (36.4-46.3); Red Blood Count 3.28 M/uL (4.63-6.08)
[2022-03-01 04:41] LABS: Albumin Globulin Ratio 1.2 (0.9-2); Albumin Level 3.4 gm/dl (3.4-5.0); BUN Creatinine Ratio 23.4 (10-20); Bilirubin,Total 0.6 mg/dl (0.2-1.0); Calcium 8.7 mg/dl (8.5-10.1); Chol HDL Ratio 2.6 (0-5); Creatinine Clr Calc Pharmacy 87.9 ml/min; Est GFR (African American) 96.8 ml/min; Est GFR (Non-African American) 83.6 ml/min; Globulin 2.9 gm/dl (2.5-4.0); Magnesium 1.8 mg/dl (1.7-2.4); Potassium 4.6 mmol/L (3.5-5.1); Total Protein 6.3 gm/dl (6.0-8.3)
[2022-03-01 05:02] LABS: Appearance Urine Clear (Clear); Bilirubin Urine Negative (Negative); Blood Urine Negative (Negative); Color Urine Yellow; Glucose Urine UA Negative (Negative); Ketones Urine Negative (Negative); Leukocyte Esterase Urine Negative (Negative); Nitrite Urine Negative (Negative); Protein Urine Negative (Negative); Specific Gravity Urine 1.011 (1.000-1.030); Urobilinogen Urine Negative (Negative)
[2022-03-01] MEDS ORDERED: dexAMETHasone 4 MG in SYRINGE 0 ML IV SCH (06:00)
[2022-03-01 07:26] LABS: Estimated Average Glucose 169 mg/dl; Hemoglobin A1C 7.5 % (4.5-5.6)
--- NOTE | 2022-03-01 07:57 | Electrocardiogram Report ---
Test Reason : Blood Pressure : / mmHG Vent. Rate : 072 BPM Atrial Rate : 072 BPM P-R Int : 160 ms QRS Dur : 116 ms QT Int : 384 ms P-R-T Axes : 030 -17 -02 degrees QTc Int : 420 ms Poor data quality, interpretation may be adversely affected Sinus rhythm with Premature supraventricular complexes Otherwise normal ECG When compared with ECG of 28-FEB-2022 18:58, (unconfirmed) No significant change was found Confirmed by Manolo Mccabe ([id number]) on 03/01/2022 7:57:14 AM Referred By: VIDHI BENNETT Confirmed By:Manolo Mccabe
--- NOTE | 2022-03-01 08:07 | Electrocardiogram Report ---
Test Reason : Blood Pressure : / mmHG Vent. Rate : 074 BPM Atrial Rate : 074 BPM P-R Int : 136 ms QRS Dur : 110 ms QT Int : 360 ms P-R-T Axes : 000 -18 071 degrees QTc Int : 399 ms Sinus rhythm with Premature atrial complexes Diffuse Minor Nonspecific T wave abnormality Abnormal ECG When compared with ECG of 27-FEB-2022 10:44, Premature ventricular complexes are no longer Present Premature atrial complexes are now Present Confirmed by Manolo Mccabe ([id number]) on 03/01/2022 8:06:59 AM Referred By: VIDHI BENNETT Confirmed By:Manolo Mccabe
[2022-03-01] MEDS: INSULIN ASPART PER UNIT SC SCH ×2 (08:45→12:46)
[2022-03-01] MEDS ORDERED: allopurinoL 100 MG TAB PO SCH (09:00)
[2022-03-01] MEDS ORDERED: ATORVASTATIN 40 MG TAB PO SCH (09:00)
[2022-03-01] MEDS ORDERED: METOPROLOL SUCC 25MG EXT REL TAB PO SCH (09:00)
[2022-03-01] MEDS ORDERED: GABAPENTIN 100 MG CAP PO SCH (09:00)
--- NOTE | 2022-03-01 11:38 | Neurology Consultation ---
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 The brain lesions have some edema and some are hemorrhagic. He is completed a course of radiation therapy to the head. Radiation therapy to the brain can cause irritation and neurologic symptoms in the acute /subacute phase The patient has had some new symptoms. I see no facial droop but there is a lef t Gloria syndrome present ( ptosis and myosis) likely from autonomic nervous system irritation from the metastatic melanoma on the left. The left upper extremity dysesthesias could be coming from cervical nerve root irritation or the brain ( metastasis) but there is no evidence on MRI of a new stroke. The patient has A diabetic polyneuropathy which is mostly sensory in his feet. It affects his balance as well. Recommendations: 1. Continue Decadron 4 milligrams Q 12 and then defer to Oncology. 2. He apparently has an appointment with Dr. Rubio next week. 3. There is no indication for antiplatelet medication (he did not have a stroke or a TIA) and with the hemorrhagic lesions seen on CT scan he would not be a candidate for this type of medication anyway as a would increase bleeding risk. 4. we could consider EMG nerve conduction studies of the left upper extremity should be continued have dysesthesias and that arm ( to look for radiculopathy ). This could be done as an outpatient. 5. Otherwise I have no further neurologic testing or treatment recommendations to make at this time. Please contact me if I can be of further assistance on this case. Overall, I spent a total of 60 minutes with this case including review of records, review of MRI and CT films, direct evaluation the patient at bedside, and discussion of the case with the patient at bedside, and Dr. Lea, including differential diagnosis and treatment options. History of Present Illness Reason for Consultation: Patient is a 67-year-old, who I was asked to see at the request of Dr. Hlil, neurologic consultation regarding new neurologic symptoms and known metastatic melanoma to the brain. Requesting Physician: Dr. Hill Attending Physician: Sacha Lea MD History of Present Illness This patient has a longstanding history of type 2 diabetes and hypertension ( up to 20 years) with generalized polyneuropathy secondary to the diabetes. He has never had a stroke or heart issue that he is aware. He takes atorvastatin for dyslipidemia. In December this year he had a left scalp lesion excised which was consistent with melanoma. MRI of the brain January 23 showed numerous intracranial and extracranial masses and a PET scan showed multiple metastases in the face, neck, lungs, chest wall, adrenal glands, liver, and brain. He was seen by Oncology in [place] and initiated on Keytruda. He also received radiation therapy to the whole brain. This was done over a 2 week course and finished about 2 weeks ago. The patient developed droopy eyelid in the small pupil on the left with some intermittent tingling of the left hand. These were occurring for several days on and off. There was a concern that there was a stroke. He arrived at the emergency room February 28 at 16:40 with a temperature of 36.8, pulse 96 and regular, respiratory rate 18, blood pressure 132/88, and O2 saturation 97 percent. Emergency room physician saw no focal or cranial nerve deficits neurologically. He had mild anemia with a glucose of 125 with a normal liver profile and Chem profile otherwise. CT scan of the head showed multifocal foci / masses with edema and some with hemorrhage. MRI of the brain showed multiple metastases some with hemorrhage and many with vasogenic edema. It looks similar to the previous study. Patient was given Decadron 4 milligrams q.12 hours. He has not had any seizure activity. Currently he is not confused, having vision problems, or having speech issues. He has some neck pain particularly on the left lateral side and has some numbness and tingling occasionally in the left hand in the 4th and 5th fingers. His feet are numb from the polyneuropathy. He has no double vision or blurry vision. Allergies Allergy/AdvReac Type Severity Reaction Status Date / Time lovastatin Allergy Unknown CAN'T Verified 02/28/22 21:44 REMEMBER simvastatin Allergy Unknown CAN'T Verified 02/28/22 21:44 REMEMBER prochlorperazine AdvReac Intermediate Nausea Verified 03/01/22 00:09 [From Compazine] Home Medications Medication Instructions Recorded Confirmed Type blood sugar diagnostic ([employer]zer[employer] #100 ea 02/02/19 02/10/22 Rx Ultra Blue Test Strip) lancets 33 gauge ([employer] #100 ea 02/02/19 02/10/22 Rx Lancets) acetaminophen 325 mg tablet 325 mg PO QID PRN pain #90 tabs 05/31/19 02/28/22 Rx blood-glucose meter #1 ea 11/14/19 02/10/22 Rx colestipol 1 gram tablet 1 g PO BID #60 tabs 05/03/21 02/28/22 Rx metformin 1,000 mg tablet 1,000 mg PO BID #180 tabs 12/24/21 02/28/22 Rx allopurinol 100 mg tablet 100 mg PO BID #180 tabs 12/25/21 02/28/22 Rx atorvastatin 80 mg tablet 40 mg PO BID 01/07/22 02/28/22 History lorazepam 0.5 mg tablet 0.5 mg PO TID PRN anxiety #30 tabs 01/30/22 02/28/22 Rx tramadol 50 mg tablet 50 mg PO Q8H PRN pain #60 tabs 01/30/22 02/28/22 Rx omeprazole 40 mg capsule,delayed 40 mg PO QAM #30 caps 02/03/22 02/28/22 Rx release ondansetron HCl 8 mg tablet 8 mg PO Q8H PRN nausea and 02/03/22 02/28/22 Rx vomiting #30 tabs memantine 10 mg tablet (Namenda) 10 mg PO BID #60 tabs 02/26/22 02/28/22 Rx lisinopril 2.5 mg tablet 2.5 mg PO DAILY #30 tabs 02/27/22 02/28/22 Rx metoprolol succinate 25 mg 25 mg PO DAILY #30 tabs 02/27/22 02/28/22 Rx tablet,extended release 24 hr cholecalciferol (vitamin D3) 50 50 mcg PO DAILY 02/28/22 02/28/22 History mcg (2,000 unit) capsule (Vitamin D3) coenzyme Q10 100 mg capsule 100 mg PO DAILY 02/28/22 02/28/22 History (CoQ-10) dexamethasone 2 mg tablet 2 mg PO DIRECTED 02/28/22 02/28/22 History gabapentin 100 mg capsule 100 mg PO BID 02/28/22 02/28/22 History magnesium chloride 64 mg 64 mg PO DAILY 02/28/22 02/28/22 History (magnesium chloride) tablet,delayed release oxycodone 5 mg tablet 5 mg PO Q4H PRN Pain 02/28/22 02/28/22 History Patient History Medical History Amputated toe Right and Left Amputated toe of left foot Benign essential hypertension BPPV (benign paroxysmal positional vertigo) Changing skin lesion Controlled diabetes mellitus with diabetic neuropathy, without long-term current use of insulin Cough COVID-19 virus infection Diabetic peripheral neuropathy associated with type 2 diabetes mellitus Diverticulitis GERD (gastroesophageal reflux disease) Gout History of arteriography Hypercholesterolemia Lightheadedness 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 Brother No problems noted. Brother No problems noted. Uncle Lung cancer Other No family history of adverse response to anesthesia No pertinent family history Social History Smoking Status: Never smoker packs per day: 0.5; Smoking End Date: 1994; Second Hand Exposure: No; Hx Alcohol Use: Yes Alcohol type: beer Alcohol Intake Frequency: 4 or More x per/Week Alcohol Intake Frequency Comment: average one drink per day, or less Hx Substance Use: No Preferred Language: [place] Communication Ability: Effective Visual Impairment: Limited Hearing Ability: Normal Couples Therapist Required: No Beliefs That Will Affect Care: None marital status: Current Living Situation: Spouse current occupational status: employed current occupation: works in [employer] How many Children do You have: 2 Other Information That Helps Us Care for You: No Feels Safe at Home: Yes Safety Concerns: Feels Safe At This Time Childhood Exposure to Second-Hand Smoke: No during the past year weight has: remained stable Seatbelt Use: always Assistive Devices: None Review of Systems Constitutional: no fever, no fatigue and no weakness Eyes: no diplopia, no eye pain and no worsening vision Ear, Nose, Mouth, Throat: no ear pain, no tinnitus, no hearing loss, no dizziness, no snoring, no hoarseness and no dysphagia Respiratory: no cough and no dyspnea Cardiovascular: no chest pain, no palpitations and no lightheadedness Gastrointestinal: no abdominal pain, no nausea and no vomiting Musculoskeletal: + neck pain; no back pain, no radicular pain, no joint pain and no myalgia Integumentary: no rash and no lesions Neurologic: + numbness; no gait abnormality, no localized weakness, no generalized weakness, no tingling, no tremor(s), no abnormal movements, no headache(s), no abnormal speech, no confusion and no memory loss Psychiatric: no depression, no irritability, no anxiety, no difficulty concentrating, no confusion and no hallucinations Endocrine: no fatigue and no flushing Hematologic / Lymphatic: no easy bleeding and no easy bruising Allergy / Immunological: no urticaria and no problem reported Exam (Neuro) Physical Exam: The patient is right-handed. The patient is awake, alert, and attentive. Speech is normal without any aphasia or dysarthria. The patient can name objects, repeat phrases, and has normal spontaneous speech. Mentation and thought processes are intact, with orientation to person, place and time, and normal fund of knowledge. Attention and concentration are normal. Mood and affect are normal and appropriate. General appearance and grooming are normal. Short and long-term memory are intact to conversation. Pupil is 4 mm on the right and 2 millimeters on the left. Both are reactive to light. Extraocular eye muscles are intact without nystagmus. Visual acuity and visual grant seem normal grossly to confrontation. there is ptosis of the left upper lid. There are no deficits to sensation in the face in all 3 distributions of the fifth cranial nerve bilaterally. Corneal reflexes are positive bilaterally. Facial strength and symmetry was normal bilaterally. Hearing seems normal bilaterally. Palate moves well without asymmetry. There is normal sternocleidomastoid and trapezius (shoulder shrug) strength bilaterally. Tongue is midline with good strength bilaterally. Neck has a full range of motion without discomfort. There are no cervical bruits bilaterally. There are no cranial or ocular bruits. Heart is without murmur. There is a regular rhythm and rate. Cervical, thoracic, and lumbar spine are nontender to palpation. Gait Is not tested but stance sitting up in bed is good.. With outstretched arms there is no drift. There are no resting, postural, or action tremors. There is no ataxia with finger to nose testing. There is good facility in the hands. No other abnormal involuntary movements are noted. Motor strength is 5/5 diffusely in the arms bilaterally including deltoids, biceps, triceps, brachioradialis, wrist flexors and extensors, contact lens flashing puncher, and intrinsic hand muscles. Motor strength is 5/5 diffusely in the legs bilaterally including hip flexors, quadriceps, hamstrings, gastrocnemius, tibialis anterior, tibialis posterior, and Peroneii muscles. Toe extensors are normal and there is good bulk in the extensor digitorum brevis muscles bilaterally. The limbs have good tone without rigidity or spasticity. There is no atrophy noted in the muscles. Muscle bulk is normal, there is no tenderness to palpation, no myotonia to percussion, and no fasciculations seen. Sensory examination Reveals some decreased sensation to pin touch in the feet. Reflexes are 1/4 in the biceps, triceps, brachioradialis, and quadriceps tendons bilaterally. Achilles reflexes are absent bilaterally. There is no clonus bilaterally. Toes are downgoing with plantar stimulation bilaterally. Peripheral pulses are present and of normal quality distally in all 4 limbs. There is no peripheral edema noted in the limbs. Results & Data ([facility]) Vital Signs (Past 12 Hours) Vital Signs Temp Pulse Pulse Resp BP Pulse Ox Pulse Ox 03/01/22 06:00 70 03/01/22 07:24 36.4 C L 60 16 149/96 H 93 03/01/22 03:22 36.4 C L 68 20 136/83 91 03/01/22 01:45 22 96 03/01/22 01:38 77 03/01/22 01:24 98 03/01/22 01:16 36.8 C 76 20 145/90 H 98 03/01/22 00:22 36.8 C 76 20 145/90 H 98 O2 Del Method O2 Del Method 03/01/22 06:00 03/01/22 07:24 Room Air 03/01/22 03:22 Room Air 11/12/22 01:45 Room Air 03/01/22 01:38 03/01/22 01:24 Room Air 03/01/22 01:16 Room Air 03/01/22 00:22 Room Air PG Care Time/CCT Total # of Minutes Spent Total Time Spent with Patient: Total time spent is greater than 50% in coordination of care (as documented) at patient's floor/unit and/or counseling patient: Coding Level of Care Code 25431 Initial Inpt Care Lvl 3 Diagnoses 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
[2022-03-01 11:41] VITALS: TEMP 97.9; O2SAT 96
[2022-03-01] MEDS ORDERED: hydrALAZINE HCL 20 MG/ML VIAL IV STA (14:04)
[2022-03-01] MEDS ORDERED: METOPROLOL SUCC 25MG EXT REL TAB PO ONE (14:07)
--- NOTE | 2022-03-01 15:08 | Discharge Summary ---
Date of Service March 01, 2022 Admission HPI Per Admitting Provider 67 y/o male w/ PMHx of DM, melanoma w/ brain mets, BPPV, osteoporosis, HLD, HTN, and gout who presents w/ left eye droop, noticed by his daughter early afternoon today. She also noticed smaller L pupil and possible altered responsiveness to light. Per patient, his symptoms persisted all day. He denies any other symptoms and feels at baseline. No headache, blurry vision, diplopia, or confusion. He was seen in the ED yesterday for electrolyte repletion (hypomg 1.2, hypo phos). Per oncology notes, he completed whole brain radiation therapy on 02/14/22. He was started on q3w Keytruda recently and has had 2 doses, last dose on 02/21/22. Several weeks ago, he had several episodes seizure-like activity and was seen at [facility] ED. He states he was not started on antiepileptic medications and the seizure like activity has not returned. ED course: dexamethasone PF 10mg IV. MRI brain w/ and w/o contrast: extensive known intracranial mets, w/ hemorrhage of some of the mets. Associated vasogenic edema w/o midline shift. ED spoke w/ on-call neurologist regarding patient dispo; appropriate to be admitted to [facility]. no leukocytosis. Hb 11.8, stable. INR 1.0. Na 135. Cr .95. Mg 1.2. cxr, ecg reviewed. Principal Diagnosis 1. Malignant melanoma with brain mets 2. Hypomagnesemia-corrected Discharge Exam GENERAL: 67 yo Well-developed, well-nourished WM. NAD. LUNGS: Clear to auscultation bilaterally. No accessory muscle use. No W/R/R. CARDIOVASCULAR: Regular rate and rhythm. No M/G/R. No JVD. ABDOMEN: Soft, non-tender and non-distended. BS normoactive x 4 quad. EXTREMITIES: No edema. Non-tender. Peripheral pulses +2/4. NEUROLOGIC: A&O x3. Nonfocal PSYCHIATRIC: Cooperative. Appropriate mood and affect. SKIN: Warm, dry, intact. Left scalp mass lesion covered with dressing. Discharge Data Allergies Allergy/AdvReac Type Severity Reaction Status Date / Time lovastatin Allergy Unknown CAN'T Verified 02/28/22 21:44 REMEMBER simvastatin Allergy Unknown CAN'T Verified 02/28/22 21:44 REMEMBER prochlorperazine AdvReac Intermediate Nausea Verified 03/01/22 00:09 [From Compazine] Consultations 02/28/22 22:02 ED Decision to Admit Stat 02/28/22 23:58 Consult Neurology Routine Ordered Studies Head CT 02/28/22 16:44 CT head/brain wo con CLINICAL HISTORY: Stroke Alert Technique: Contiguous axial CT images of the head were acquired from the base of the skull to the vertex without intravenous contrast administration. Images were viewed in brain, subdural and bone windows. Automated dose lowering techniques and/or adjustment according to patient size were utilized for this exam. Comparison: Comparison is made to CT radiation therapy head 01/30/[address] head 01/25/2022 Findings: Multiple hypodense foci with surrounding vasogenic edema are seen compatible with hemorrhage in the posterior brain. These include a right occipital lobe lesion measuring 14 mm and a left occipital lobe lesion measuring 16 mm. A soft tissue mass arising from the left frontotemporal scalp measures 13 x 41 mm. Of note, a few nonhemorrhagic foci are seen corresponding to previous metastatic lesions. Imaged portions of the paranasal sinuses and mastoid air cells are clear. The orbits appear normal. There are no acute fractures of the calvaria or scalp swelling. Impression: Multiple foci of hyperdensity with surrounding vasogenic edema are seen in the brain. These are favored to represent hemorrhagic metastases in this patient with known history of melanoma. These are less likely to to represent simple posttreatment changes status post radiotherapy. Primary left-sided subcutaneous mass and nonhemorrhagic metastases are also seen. ACT 112: Negative or not required by law. Electronically signed by: Amando Melendez M.D. 02/28/2022 6:18 PM Brain MRI 02/28/22 19:32 MR brain wo/w con CLINICAL HISTORY: brain mets, ? ICH TECHNIQUE: Multiplanar and multisequence MR images of the brain were obtained prior to and following administration of gadolinium contrast. Comparison: Comparison is made to CTA head 02/28/[address] head 01/25/2022 FINDINGS: No abnormal restricted diffusion is identified in the brain, restricted diffusion is noted in the primary focus of melanoma in the left temporal soft tissues. Multiple enhancing foci are noted compatible with metastatic disease in this patient with known intracranial melanoma metastases. In addition, there is susceptibility artifact in some of these lesions with surrounding vasogenic edema. The ventricular system is normal in appearance. There is no mass effect or midline shift. No extra axial fluid collections are seen. The corpus callosum, pituitary gland, and cerebellar tonsils appear grossly unremarkable. Flow voids of the major intracranial arterial vessels are identified. The imaged portions of the paranasal sinuses, mastoid air cells, and orbits are unremarkable. IMPRESSION: Findings are compatible with extensive known intracranial metastatic disease in this patient with primary melanoma, with hemorrhage of some of the metastases. There is associated vasogenic edema without evidence of midline shift. ACT 112: Negative or not required by law. Electronically signed by: Amando Melendez M.D. 02/28/2022 9:11 PM Hospital Course (1) Facial droop: 67 y/o male w/ PMHx of DM, melanoma w/ brain mets, BPPV, osteoporosis, HLD, HTN, and gout who presents w/ transient left eye droop in setting of metastatic melanoma to brain w/ areas of hemorrhage. Clinically stable. - transient, no droop appreciated on my exam - most likely 2/2 known brain mets; per MRI today, some of the mets include hemorrhage; appears new compared to MRI at [facility] last month. vasogenic edema w/o evidence of midline shift. - also considered TIA/CVA from ischemic causes, but lower suspicion in overall context - neuro checks per protocol - consult neurology, appreciate assistance/recs - continue dexamethasone for cerebral edema 2/2 brain mets; 10mg dexamethasone PF in ED. 4mg dexamethasone q12h continued - aim for systolic BP <140 in setting of hemorrhage noted in brain mets; acuity of the hemorrhage unknown. nursing notify parameter for sustained systolic >150 ordered - avoid NSAIDs and dvt chemoppx - facial droop has resolved, no evidence of stroke, suspect neuro deficits resolved with steroids (2) Melanoma metastatic to brain: - reviewed [facility] records - has exophytic mass at left scalp - relatively new diagnosis in past few months - patient is s/p whole brain radiation, treatment completed on 02/14 and recently started on Keytruda - per patient, he is establishing w/ local oncology in [place] - Discussed case w/ Dr. Fraser via phone, will plan to continue Decadron 4mg BID - Lengthy d/w pt re: options, home w/ steroids vs transfer for neurosurg eval at [facility]. Pt elected for the home w/ steroids and close monitoring - Closely monitor for s/sx of neuro deficits OR seizure activity, at which he should immediately be brought back to the ER for evaluation, pt and family verbalize understanding - Given hemorrhage in metastatic brain lesions, BP control is important, will increase Lisinopril to 10mg daily and increase Metoprolol Succinate to 50mg daily - Keep schedule f/u with Dr. Fraser at [facility] on 03/05 - Strongly advise palliative medicine consultation given progression of cancer (3) Diabetes mellitus: - hold home metformin. check a1c in AM. check bsg achs. loose sliding scale. add basal coverage if needed. - monitor accuchecks at home given increase in steroid dose - may need to add insulin if readings necessitate (4) Benign essential hypertension: - continue home medicine with adjustments as above - BP accelerated this afternoon, ordered a dose of Hydralazine and another dose of Toprol 25mg x1 - Repeat BP prior to dc 1 hr after admin of meds to ensure improvement (5) Hypomagnesemia: - 1.2. repleting. 2 bags ordered in ED. 3 additional bags ordered - will send home with mag ox 400mg BID, rx provided (6) Hypercholesterolemia: - continue home statin. check lipid panel (7) Anxiety: - continue prn ativan, but at reduced frequency (8) Gout: - continue home allopurinol Plan Patient is medically and hemodynamically stable for discharge once BP improves. Plan for close f/u with oncology and pcp as scheduled. Case d/w Dr. Sacha Lea who is in agreement. Total Time Total Time Spent Total Time Spent (In Minutes): <30 minutes Discharge Plan Discharge Items Patient Disposition: Home - Self-Care Reason For Visit: LEFT UPPER FACIAL DROOP Discharge Diagnosis: facial droop Condition on Discharge: Fair Activity: Resume your previous activity Non-emergency contact: Primary Care Provider and Oncologist Call non-emergency contact if: you have any medication questions Follow-up/Referrals: Manuel Santiago MD [Primary Care Provider] - Diet: Carb Consistent or DM2 Addtl Attending Provider Instructions: You were hospitalized for stroke-like symptoms including facial droop. You underwent an MRI of your brain which found multiple areas where your cancer has spread associated with swelling. This is what likely caused your facial droop when you first came in to the hospital. Some of these spots contain a small amount of blood. For this reason, you are at a high risk of bleeding into your brain. This would be life threatening. Fortunately, you have responded well to the steroids that you have been given. You will be continued on steroids upon your discharge. Your case was discussed with Dr. Fraser who will be seeing you in the oncology clinic on Thursday, 03/05. You were offered the option to pursue transfer to [facility] for neurosurgical evaluation, but you opted to defer this in order to go home and be closely monitored by your family with plans to see Dr. Fraser in the office as scheduled on Thursday. In the meantime, you will be continued on steroids (Decadron) and the dose will be increased to 4mg, you will continue taking it twice a day. Ideally, it should be taken with food. It is not felt at this time that you need anti-seizure medications, but it should be noted that you are at risk for seizures given the amount of lesions in your brain. In the event of seizure activity or further neurologic symptoms such as facial droop, numbness/tingling, weakness, slurred speech, you should be immediately evaluated in the emergency department. Lastly, you had adjustments made to your blood pressure medications as follows: Your Metoprolol Succinate is being increased to 50mg daily and your Lisinopril is being increased to 10mg daily. Please take both of these medications as directed. New prescriptions have been sent to your pharmacy on file. I would recommend a consultation with the palliative care team given the progression of your cancer. This can be discussed at your appointment with Dr. Fraser. If you have any questions or concerns following your discharge, please call the nonemergency number listed on your discharge paperwork. In the event of a medical emergency, call 911. Pending Studies at Discharge: No Stand-Alone Forms: My [facility] Nugg-it, Smoking Cessation Medications and DC Order Prescriptions: New dexamethasone 4 mg tablet 4 mg PO BID Qty: 60 0RF metoprolol succinate 50 mg tablet extended release 24 hr 50 mg PO DAILY Qty: 30 0RF lisinopril 10 mg tablet 10 mg PO DAILY Qty: 30 0RF magnesium oxide 400 mg magnesium tablet 400 mg PO BID Qty: 60 0RF Continued acetaminophen 325 mg tablet 325 mg PO QID PRN (Reason: pain) Qty: 90 0RF colestipol 1 gram tablet 1 g PO BID Qty: 60 11RF Rx Instructions: swallow whole tab w/any liquid;do not crush/chew/cut;administer other meds 1hr before/4hr after taking dose metformin 1,000 mg tablet 1,000 mg PO BID Qty: 180 0RF allopurinol 100 mg tablet 100 mg PO BID Qty: 180 0RF lorazepam 0.5 mg tablet 0.5 mg PO TID PRN (Reason: anxiety) Qty: 30 0RF tramadol 50 mg tablet 50 mg PO Q8H PRN (Reason: pain) Qty: 60 0RF memantine [Namenda] 10 mg tablet 10 mg PO BID Qty: 60 4RF (DME) OneTouch Ultra Blue Test Strip strip See Dose Instructions .ROUTE .MEDSUPPLY Qty: 100 3RF Dose Instruction: As directed Rx Instructions: As directed once a day (DME) lancets [OneTouch Delica Lancets] 33 gauge misc See Dose Instructions .ROUTE .MEDSUPPLY Qty: 100 3RF Dose Instruction: As directed Rx Instructions: As directed once a day omeprazole 40 mg capsule,delayed release(DR/EC) 40 mg PO QAM Qty: 30 5RF ondansetron HCl 8 mg tablet 8 mg PO Q8H PRN (Reason: nausea and vomiting) Qty: 30 5RF (DME) blood-glucose meter Kit See Rx Instructions .ROUTE .MEDSUPPLY Qty: 1 0RF Rx Instructions: as per Rx plan. Check once daily. E11.9 atorvastatin 80 mg tablet 40 mg PO BID gabapentin 100 mg capsule 100 mg PO BID oxycodone 5 mg Tablet 5 mg PO Q4H PRN (Reason: Pain) coenzyme Q10 [CoQ-10] 100 mg Capsule 100 mg PO DAILY cholecalciferol (vitamin D3) [Vitamin D3] 50 mcg (2,000 unit) Capsule 50 mcg PO DAILY Discontinued lisinopril 2.5 mg tablet 2.5 mg PO DAILY Qty: 30 0RF metoprolol succinate 25 mg tablet extended release 24 hr 25 mg PO DAILY Qty: 30 0RF dexamethasone 2 mg tablet 2 mg PO DIRECTED Rx Instructions: STARTED 02/24/22 TAKE DAILY FOR 1 WEEK, THEN EVERY OTHER DAY FOR 1 WEEK. magnesium chloride 64 mg Tablet,Delayed Release (Dr/Ec) 64 mg PO DAILY Discharge Orders: Discharge Order (Routine); Ordered 03/01/22 Ordered By: Sadia Cordero Admission Data Admit Date/Time: 02/28/22 23:12 Attending Provider: Sacha Lea Admit Provider: [place] Primary Care Provider: Manuel Santiago Other Providers: [place] Naqvi ; Luan Cochran Other Interventions: Discharge Summary Assessment (RN) Last Done: 03/01/22 15:08 Supervising Physician Co-Signing Physician Notes I supervised Sadia Cordero PA-C on the care of this patient. I did not see the patient as he had been seen by an attending in the last 24 hours. The plan is as written in her note except for any following changes/exceptions: None 67yo M w/ metastatic melanoma who presents with facial droop. 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 Case discussed with oncology for outpatient recs for dexamethasone. Will see them in clinic this coming week. Coding Level of Care Code 77961 OBS Care - Discharge Diagnoses Facial droop R29.810 Melanoma metastatic to brain C79.31 Diabetes mellitus E11.9 Benign essential hypertension I10 Hypomagnesemia E83.42 Hypercholesterolemia E78.00 Anxiety F41.9 Gout M10.9
[2022-03-01 15:50] VITALS: BP 120/47; PULSE 82
--- NOTE | 2022-03-01 20:03 | Billing Data ---
Date of Service March 01, 2022 Coding Level of Care Code INT OBSERVATION CARE 70M LVL 3
== END 2022-03-01 16:23 | disposition home or self-care (01) ==
LOC: ED 16:30 → 4W 16:30 → SUATTDRO 23:12 → 4W 03-01 01:45
DX: Z79.84 Long term (current) use of oral hypoglycemic drugs; Z79.899 Other long term (current) drug therapy; G93.6 Cerebral edema; I10 Essential (primary) hypertension; C79.31 Secondary malignant neoplasm of brain; C43.9 Malignant melanoma of skin, unspecified; Z88.8 Allergy status to other drugs, medicaments and biological substances; Z86.16 Personal history of COVID-19; E83.42 Hypomagnesemia; E78.00 Pure hypercholesterolemia, unspecified; E11.42 Type 2 diabetes mellitus with diabetic polyneuropathy; M10.9 Gout, unspecified

== ENCOUNTER 2022-04-12 15:09 | Inpatient (IN) ==
--- NOTE | 2022-04-12 15:40 | Emergency Department Note ---
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 No history was obtained from prehospital personnel other than that the patient had an onset of altered mental status over the last 24 hours. Currently awaiting for family to arrive. Nursing states that the patient did not answer questions and appears to have a left gaze preference. The patient has a history of stage IV cancer. He also has a history of diabetes. It is unclear if the patient had a fever or any kind of trauma. It is unclear if patient had any new medications. ROS: See above HPI for pertinent positives & negatives. A total of 10 systems reviewed and were otherwise negative. PAST MEDICAL HISTORY: See Below PAST SURGICAL HISTORY: See Below FAMILY HISTORY: See Below SOCIAL HISTORY: See Below HOME MEDICATIONS: See Below ALLERGIES: See Below VITALS: See Below PHYSICAL EXAMINATION: GENERAL: The patient is awake but only looks to the left side. He does not follow commands or answer questions. EARS, NOSE, MOUTH AND THROAT: The nose is without any evidence of any deformity. Mucous membranes are dry. NECK: The neck is nontender and supple. RESPIRATORY: Shallow respirations were noted. CARDIOVASCULAR: Regular rate and rhythm noted there no murmurs rubs or gallops normal S1 normal S2. GASTROINTESTINAL: The abdomen is distended. There is diffuse tenderness but no guarding rigidity. MUSCULOSKELETAL/EXTREMITIES: There is no evidence of gross deformity full range of motion is noted in the hips and shoulders. SKIN: Pedal edema was noted bilaterally. Skin was cool and dry. NEUROLOGIC: Patient does not follow commands. I am unable to assess orientation at this time. He does not appear to move his extremities spontaneously. MEDICAL DECISION MAKING: The patient is a 67-year-old male who presented to the emergency department for an evaluation of altered mental status. Normally the patient is awake and alert and able to give results. Patient was found to be unable to talk today. Initially when I evaluated him he was only able to to look to the left. On reevaluation he is able to move his eyes better but he still is not able to talk. The patient's CAT scan of the brain does show increase in the hemorrhagic metastasis disease from his malignant melanoma. I do feel this is likely the cause of the patient's presentation today. He would certainly not be a ivonne te for thrombolytics for stroke. According to his family members he is still receiving chemotherapy but also appears to be at some degree of end-of-life care. I discussed the patient's condition with his family members. I also discussed his case with the on-call [facility] hospitalist. They will evaluate the patient in the emergency department. He was treated with fluids and antiseizure medication even though I do not feel it is likely this is from a seizure. Triage Nursing notes reviewed. Prior medical records reviewed Vital Signs: reviewed and remarkable for elevated blood pressure. Differential diagnosis: Infection, hypoglycemia, electrolyte abnormalities, overdose, toxicologic, cardiac sources, intracerebral event, neurologic, trauma, as well as other pathologies. ER treatment provided: See below Diagnostics interpreted by me: ECG: EKG was obtained in the emergency department. My interpretation is sinus rhythm with ectopic atrial beats noted. Early transition was noted. There were no PVCs. There were no acute ST segment abnormalities noted. This was compared to a tracing from March 26, 2022. No significant changes were noted. Cardiac Monitoring: An order was placed for continuous cardiac monitoring. The monitor shows a rate of 103 bpm with sinus tachycardia. Laboratory studies: As stated above and show below. Imaging studies: See below Consultation(s): I discussed this case with Dr. Florentino who is on-call for the [facility] hospitalist group. Past Med/Surg History Medical History Amputated toe Right and Left Amputated toe of left foot Anemia Benign essential hypertension BPPV (benign paroxysmal positional vertigo) Changing skin lesion Controlled diabetes mellitus with diabetic neuropathy, without long-term current use of insulin Cough COVID-19 virus infection Diabetic peripheral neuropathy associated with type 2 diabetes mellitus Diverticulitis GERD (gastroesophageal reflux disease) Gout History of arteriography Hypercholesterolemia Hypophosphatasia Lightheadedness 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 Brother No problems noted. Brother No problems noted. Uncle Lung cancer Other No family history of adverse response to anesthesia No pertinent family history Social History Smoking Status: Former smoker packs per day: 0.5; Second Hand Exposure: No; Hx Alcohol Use: Yes Alcohol type: beer Alcohol Intake Frequency: 4 or More x per/Week Alcohol Intake Frequency Comment: average one drink per day, or less Hx Substance Use: No Preferred Language: Slovak Communication Ability: Effective Visual Impairment: Limited Hearing Ability: Normal Stoner Hand Required: No Beliefs That Will Affect Care: None marital status: Current Living Situation: Spouse current occupational status: employed current occupation: works in [employer] How many Children do You have: 2 Feels Safe at Home: Yes Childhood Exposure to Second-Hand Smoke: No during the past year weight has: remained stable Seatbelt Use: always Assistive Devices: None Allergies Allergies Allergy/AdvReac Type Severity Reaction Status Date / Time lovastatin Allergy Unknown CAN'T Verified 03/18/22 13:09 REMEMBER simvastatin Allergy Unknown CAN'T Verified 03/18/22 13:09 REMEMBER prochlorperazine AdvReac Intermediate Nausea Verified 03/18/22 13:09 [From Compazine] Home Meds Home Medications Medication Instructions Recorded Confirmed atorvastatin 80 mg tablet 40 mg PO BID 01/07/22 04/07/22 cholecalciferol (vitamin D3) 50 50 mcg PO DAILY 02/28/22 04/07/22 mcg (2,000 unit) capsule (Vitamin D3) coenzyme Q10 100 mg capsule 100 mg PO DAILY 02/28/22 04/07/22 (CoQ-10) gabapentin 100 mg capsule 100 mg PO BID 02/28/22 03/18/22 oxycodone 5 mg tablet 5 mg PO Q4H PRN Pain 02/28/22 04/07/22 docusate sodium 100 mg capsule 100 mg PO TID PRN 04/07/22 04/07/22 polyethylene glycol 3350 17 gram 17 g PO DAILY PRN 04/07/22 04/07/22 oral powder packet (Miralax) Previous Rx's Medication Instructions Recorded blood sugar diagnostic (OneTouch #100 ea 02/02/19 Ultra Blue Test Strip) lancets 33 gauge (OneTouch Delica #100 ea 02/02/19 Lancets) acetaminophen 325 mg tablet 325 mg PO QID PRN pain #90 tabs 05/31/19 blood-glucose meter #1 ea 11/14/19 lorazepam 0.5 mg tablet 0.5 mg PO TID PRN anxiety #30 tabs 01/30/22 omeprazole 40 mg capsule,delayed 40 mg PO QAM #30 caps 02/03/22 release ondansetron HCl 8 mg tablet 8 mg PO Q8H PRN nausea and 02/03/22 vomiting #30 tabs memantine 10 mg tablet (Namenda) 10 mg PO BID #60 tabs 02/26/22 glimepiride 1 mg tablet 1 mg PO DAILY #30 tabs 03/04/22 tramadol 50 mg tablet See Rx Instructions PO Q8H PRN 03/04/22 pain #60 tabs allopurinol 100 mg tablet 100 mg PO BID #180 tabs 03/28/22 magnesium oxide 400 mg PO BID #180 tabs 03/28/22 lisinopril 10 mg tablet 10 mg PO DAILY #30 tabs 03/31/22 metformin 1,000 mg tablet 1,000 mg PO BID #180 tabs 03/31/22 metoprolol succinate 50 mg 50 mg PO DAILY #30 tabs 03/31/22 tablet,extended release 24 hr Results & Data (ED) Vital Signs Vital Signs - 24 hr 04/12/22 15:26 04/12/22 15:54 Temperature 37.2 C Temperature Source Oral Pulse Rate 103 H Pulse Rhythm Regular Pulse Strength Normal Respiratory Rate 20 Respiratory Effort / Characteristics Non-Labored Respiratory Depth Normal Respiratory Pattern Regular Blood Pressure 149/100 H Blood Pressure Mean 116 Pulse Oximetry 90 91 Oxygen Delivery Method Nasal Cannula Nasal Cannula Oxygen Flow Rate 2 2 Sepsis Recent Fever Within 48 Hours No Sepsis New/Unexplained Change in Mental Status Yes Sepsis Action Taken by Nursing No Action Required Home Medications Current Medication List: was personally reviewed by me Laboratory Data Attestation: I reviewed the patient's lab results. Result diagrams: 04/12/22 15:20 04/12/22 15:20 Lab Results 04/12/22 04/12/22 04/12/22 Range/Units 15:20 15:20 15:20 WBC 3.87 L (4.8-10.8) K/ul RBC 3.44 L (4.63-6.08) M/uL Hgb 11.3 L (14.0-18.0) g/dl Hct 32.4 L (40.1-51.0) % MCV 94.2 (80.0-100.0) fL MCH 32.8 (25.0-34.0) pg MCHC 34.9 (32.0-36.0) g/dL RDW Std Deviation 60.0 H (36.4-46.3) fL RDW Coeff of Velia 17.5 H (11.5-14.5) % Plt Count 106 L (130-400) K/uL MPV 9.8 (9.4-12.4) fL Immature Gran % (Auto) 2.3 % Neut % (Auto) 70.7 % Lymph % (Auto) 18.9 % Shelby % (Auto) 7.5 % Eos % (Auto) 0.3 % Baso % (Auto) 0.3 % Neut # (Auto) 2.74 (1.4-6.5) K/uL Lymph # (Auto) 0.73 L (1.2-3.4) K/uL Shelby # (Auto) 0.29 (0.24-0.82) K/uL Eos # (Auto) 0.01 (0-0.50) K/uL Baso # (Auto) 0.01 (0-0.2) K/uL Immature Gran # (Auto) 0.09 H (0.00-0.02) K/uL PT 12.0 (9.0-12.0) Seconds INR 1.1 (0.9-1.1) APTT 23.6 (21.0-31.0) Seconds PTT Ratio 0.9 VBG pH (7.36-7.41) VBG pCO2 (38-50) mmHg VBG pO2 mmHg VBG HCO3 mmol/L VBG O2 Saturation % VBG Base Excess mEq/L Sodium 135 L (136-145) mmol/L Potassium 4.2 (3.5-5.1) mmol/L Chloride 98 (98-107) mmol/L Carbon Dioxide 29 (21-32) mmol/L Anion Gap 8 (3-11) BUN 16 (6-23) mg/dl Creatinine 0.66 (0.6-1.4) mg/dl Est Cr Clr Drug Dosing 114.1 ml/min Est GFR ( Amer) 116.0 ml/min Est GFR (Non-Af Amer) 100.0 ml/min BUN/Creatinine Ratio 24.2 H (10-20) Glucose 94 (70-99(Fasting)) mg/dl POC Glucose (70-99) mg/dl Lactate (0.4-2.0) mmol/L Calcium 8.6 (8.5-10.1) mg/dl Magnesium 1.2 L (1.7-2.4) mg/dl Total Bilirubin 1.5 H (0.2-1.0) mg/dl Direct Bilirubin 0.3 H (0-0.2) mg/dl AST 26 (13-39) U/L ALT 39 (7-52) U/L Alkaline Phosphatase 93 (34-104) U/L Troponin I High Sens 16.4 (0-20) pg/ml Total Protein 5.8 L (6.0-8.3) gm/dl Albumin 3.1 L (3.4-5.0) gm/dl Procalcitonin (0-0.5) ng/ml SARS-CoV-2, RNA, NAAT (NEGATIVE) 04/12/22 04/12/22 04/12/22 Range/Units 15:20 15:50 16:20 WBC (4.8-10.8) K/ul RBC (4.63-6.08) M/uL Hgb (14.0-18.0) g/dl Hct (40.1-51.0) % MCV (80.0-100.0) fL MCH (25.0-34.0) pg MCHC (32.0-36.0) g/dL RDW Std Deviation (36.4-46.3) fL RDW Coeff of Velia (11.5-14.5) % Plt Count (130-400) K/uL MPV (9.4-12.4) fL Immature Gran % (Auto) % Neut % (Auto) % Lymph % (Auto) % Shelby % (Auto) % Eos % (Auto) % Baso % (Auto) % Neut # (Auto) (1.4-6.5) K/uL Lymph # (Auto) (1.2-3.4) K/uL Shelby # (Auto) (0.24-0.82) K/uL Eos # (Auto) (0-0.50) K/uL Baso # (Auto) (0-0.2) K/uL Immature Gran # (Auto) (0.00-0.02) K/uL PT (9.0-12.0) Seconds INR (0.9-1.1) APTT (21.0-31.0) Seconds PTT Ratio VBG pH (7.36-7.41) VBG pCO2 (38-50) mmHg VBG pO2 mmHg VBG HCO3 mmol/L VBG O2 Saturation % VBG Base Excess mEq/L Sodium (136-145) mmol/L Potassium (3.5-5.1) mmol/L Chloride (98-107) mmol/L Carbon Dioxide (21-32) mmol/L Anion Gap (3-11) BUN (6-23) mg/dl Creatinine (0.6-1.4) mg/dl Est Cr Clr Drug Dosing ml/min Est GFR ( Amer) ml/min Est GFR (Non-Af Amer) ml/min BUN/Creatinine Ratio (10-20) Glucose (70-99(Fasting)) mg/dl POC Glucose 86 (70-99) mg/dl Lactate (0.4-2.0) mmol/L Calcium (8.5-10.1) mg/dl Magnesium (1.7-2.4) mg/dl Total Bilirubin (0.2-1.0) mg/dl Direct Bilirubin (0-0.2) mg/dl AST (13-39) U/L ALT (7-52) U/L Alkaline Phosphatase (34-104) U/L Troponin I High Sens (0-20) pg/ml Total Protein (6.0-8.3) gm/dl Albumin (3.4-5.0) gm/dl Procalcitonin 0.07 (0-0.5) ng/ml SARS-CoV-2, RNA, NAAT NEGATIVE (NEGATIVE) 04/12/22 04/12/22 Range/Units 16:23 16:23 WBC (4.8-10.8) K/ul RBC (4.63-6.08) M/uL Hgb (14.0-18.0) g/dl Hct (40.1-51.0) % MCV (80.0-100.0) fL MCH (25.0-34.0) pg MCHC (32.0-36.0) g/dL RDW Std Deviation (36.4-46.3) fL RDW Coeff of Velia (11.5-14.5) % Plt Count (130-400) K/uL MPV (9.4-12.4) fL Immature Gran % (Auto) % Neut % (Auto) % Lymph % (Auto) % Shelby % (Auto) % Eos % (Auto) % Baso % (Auto) % Neut # (Auto) (1.4-6.5) K/uL Lymph # (Auto) (1.2-3.4) K/uL Shelby # (Auto) (0.24-0.82) K/uL Eos # (Auto) (0-0.50) K/uL Baso # (Auto) (0-0.2) K/uL Immature Gran # (Auto) (0.00-0.02) K/uL PT (9.0-12.0) Seconds INR (0.9-1.1) APTT (21.0-31.0) Seconds PTT Ratio VBG pH 7.44 H (7.36-7.41) VBG pCO2 51 H (38-50) mmHg VBG pO2 24 mmHg VBG HCO3 35 mmol/L VBG O2 Saturation < 60.0 % VBG Base Excess 9.0 mEq/L Sodium (136-145) mmol/L Potassium (3.5-5.1) mmol/L Chloride (98-107) mmol/L Carbon Dioxide (21-32) mmol/L Anion Gap (3-11) BUN (6-23) mg/dl Creatinine (0.6-1.4) mg/dl Est Cr Clr Drug Dosing ml/min Est GFR ( Amer) ml/min Est GFR (Non-Af Amer) ml/min BUN/Creatinine Ratio (10-20) Glucose (70-99(Fasting)) mg/dl POC Glucose (70-99) mg/dl Lactate 1.8 (0.4-2.0) mmol/L Calcium (8.5-10.1) mg/dl Magnesium (1.7-2.4) mg/dl Total Bilirubin (0.2-1.0) mg/dl Direct Bilirubin (0-0.2) mg/dl AST (13-39) U/L ALT (7-52) U/L Alkaline Phosphatase (34-104) U/L Troponin I High Sens (0-20) pg/ml Total Protein (6.0-8.3) gm/dl Albumin (3.4-5.0) gm/dl Procalcitonin (0-0.5) ng/ml SARS-CoV-2, RNA, NAAT (NEGATIVE) Administered Medications Discontinued Medications Dexamethasone Sodium Phosphate (DexamethasonePf 10 Mg/Ml Vial) 10 mg IV NOW ONE Stop: 04/12/22 16:31 Last Admin: 04/12/22 16:34 Dose: 10 mg Documented By: MERON Levetiracetam 2,000 mg/ Sodium (Chloride) 270 mls @ 999 mls/hr IV NOW STA Stop: 04/12/22 16:46 Last Infusion: 04/12/22 17:30 Dose: 0 mls/hr Documented By: Admin: 04/12/22 17:03 Dose: 999 mls/hr Documented By: MERON Imaging Data Radiologist's Impression: Abdomen/Pelvis CT 04/12/22 15:36 CT abd pelvis wo con CLINICAL HISTORY: pain TECHNIQUE: Helical axial images of the abdomen and pelvis were obtained. Automated dose lowering techniques and/or adjustment according to patient size were utilized for this exam. This exam was performed without intravenous contrast. CT DOSE: 1378.48 mGycm COMPARISON: Comparison is made to PET/CT 01/24/2022 FINDINGS: Lower chest: Multiple pulmonary nodules are seen measuring up to 26 mm in the left lower lobe. Liver: Unremarkable. No focal lesions are seen. Gallbladder and biliary tree: No calcified gallstones. Normal caliber wall. No intra- or extrahepatic biliary ductal dilation. Pancreas: Unremarkable, no focal lesions. Spleen: Calcifications are noted in the spleen compatible with prior granulomatous disease. Adrenals: A right adrenal nodule measures 14 mm in diameter. Kidneys and ureters: A right renal cyst is seen. Bladder: Unremarkable. Reproductive organs: Unremarkable. Bowel: Unremarkable appearance of the bowel. The appendix is normal. Lymph nodes Retroperitoneal: Unremarkable. Pelvic: Unremarkable. Mesenteric: Unremarkable. Peritoneum: A few peritoneal nodules are seen concerning for peritoneal deposits. These were not well seen on prior PET/CT. These include a 14 mm nodule in the right lower quadrant (series 3 image 226) as well as a 14 mm nodule adjacent to the liver (image 102) Vessels: Atherosclerotic calcifications are seen. Abdominal wall: Unremarkable. Bones: Degenerative changes in the visualized spine. IMPRESSION: 1. No acute abnormalities are seen. 2. Numerous pulmonary nodules are seen in this patient with known metastatic melanoma. 3. Right adrenal metastasis noted. 4. Peritoneal soft tissue nodules, new from prior PET/CT, concerning for peritoneal disease. ACT 112: Negative or not required by law. Electronically signed by: Amando Melendez M.D. 04/12/2022 5:[address] 04/12/22 15:36 CT head/brain wo con CLINICAL HISTORY: altered mental status Technique: Contiguous axial CT images of the head were acquired from the base of the skull to the vertex without intravenous contrast administration. Images were viewed in brain, subdural and bone windows. Automated dose lowering techniques and/or adjustment according to patient size were utilized for this exam. Comparison: Comparison is made to CT head 02/28/2022 Findings: Numerous intracranial masses are seen, largest with surrounding vasogenic edema.. These appear to have enlarged from prior exam. For example a right frontal lesion measures 10 mm, compared to 7 mm in prior exam. A left parieto- occipital lesion measures 27 mm compared to 17 mm in prior exam. A right parietal lesion measures 18 mm compared to 14 mm in prior exam. Some of these lesions demonstrate new hyperdensity, others demonstrate evolutionary changes of previously noted hemorrhage. Soft tissue mass in the left cheek. Imaged portions of the paranasal sinuses and mastoid air cells are clear. The orbits appear normal. Impression: Interval enlargement of numerous intracranial masses compatible with enlarging hemorrhagic metastases. Some lesions demonstrate new hemorrhage, others demonstrate interval evolutionary changes of blood products from prior CT. ACT 112: Negative or not required by law. Electronically signed by: mAando Melendez M.D. 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 (DME) OneTouch Ultra Blue Test Strip strip See Dose Instructions .ROUTE .MEDSUPPLY Qty: 100 3RF Dose Instruction: As directed Rx Instructions: As directed once a day (DME) lancets [OneTouch Delica Lancets] 33 gauge misc See Dose Instructions .ROUTE .MEDSUPPLY Qty: 100 3RF Dose Instruction: As directed Rx Instructions: As directed once a day omeprazole 40 mg capsule,delayed release(DR/EC) 40 mg PO QAM Qty: 30 5RF ondansetron HCl 8 mg tablet 8 mg PO Q8H PRN (Reason: nausea and vomiting) Qty: 30 5RF tramadol 50 mg tablet See Rx Instructions PO Q8H PRN (Reason: pain) Qty: 60 0RF Rx Instructions: 1-2 tab orally every 8 hours PRN; glimepiride 1 mg tablet 1 mg PO DAILY Qty: 30 11RF Rx Instructions: take prior to supper (DME) blood-glucose meter Kit See Rx Instructions .ROUTE .MEDSUPPLY Qty: 1 0RF Rx Instructions: as per Rx plan. Check once daily. E11.9 lisinopril 10 mg tablet 10 mg PO DAILY Qty: 30 0RF metformin 1,000 mg tablet 1,000 mg PO BID Qty: 180 0RF metoprolol succinate 50 mg tablet extended release 24 hr 50 mg PO DAILY Qty: 30 0RF docusate sodium 100 mg capsule 100 mg PO TID PRN polyethylene glycol 3350 [Miralax] 17 gram powder in packet 17 g PO DAILY PRN atorvastatin 80 mg tablet 40 mg PO BID gabapentin 100 mg capsule 100 mg PO BID oxycodone 5 mg Tablet 5 mg PO Q4H PRN (Reason: Pain) Hold Instructions: Home Medication placed on hold at Doctor's office coenzyme Q10 [CoQ-10] 100 mg Capsule 100 mg PO DAILY cholecalciferol (vitamin D3) [Vitamin D3] 50 mcg (2,000 unit) Capsule 50 mcg PO DAILY Referrals Referrals: Manuel Santiago MD [Primary Care Provider] -
[2022-04-12 15:53] LABS: Basophils # (auto) 0.01 K/uL (0-0.2); Basophils % (auto) 0.3 %; Eosinophils # (auto) 0.01 K/uL (0-0.50); Eosinophils % (auto) 0.3 %; Hematocrit (blood only) 32.4 % (40.1-51.0); Hemoglobin 11.3 g/dl (14.0-18.0); Immature Granulocytes # (auto) 0.09 K/uL (0.00-0.02); Immature Granulocytes % (auto) 2.3 %; Lymphocytes # (auto) 0.73 K/uL (1.2-3.4); Lymphocytes % (auto) 18.9 %; Mean Platelet Volume 9.8 fL (9.4-12.4); Monocytes # (auto) 0.29 K/uL (0.24-0.82); Monocytes % (auto) 7.5 %; Neutrophils # (auto) 2.74 K/uL (1.4-6.5); Neutrophils % (auto) 70.7 %; Platelet Count 106 K/uL (130-400); White Blood Count 3.87 K/ul (4.8-10.8)
[2022-04-12 16:06] LABS: INR 1.1 (0.9-1.1); Partial Thromboplastin Ratio 0.9; Partial Thromboplastin Time 23.6 Seconds (21.0-31.0)
[2022-04-12 16:11] LABS: Mean Corpuscular Hemoglobin 32.8 pg (25.0-34.0); Mean Corpuscular Hgb Conc 34.9 g/dL (32.0-36.0); Mean Corpuscular Volume 94.2 fL (80.0-100.0); RDW Coefficient of Variation 17.5 % (11.5-14.5); Red Blood Count 3.44 M/uL (4.63-6.08)
[2022-04-12 16:16] LABS: Troponin I High Sensitivity 16.4 pg/ml (0-20)
[2022-04-12 16:18] LABS: Albumin Level 3.1 gm/dl (3.4-5.0); BUN Creatinine Ratio 24.2 (10-20); Bilirubin Direct 0.3 mg/dl (0-0.2); Bilirubin,Total 1.5 mg/dl (0.2-1.0); Calcium 8.6 mg/dl (8.5-10.1); Creatinine Clr Calc Pharmacy 114.1 ml/min; Magnesium 1.2 mg/dl (1.7-2.4); Potassium 4.2 mmol/L (3.5-5.1); Total Protein 5.8 gm/dl (6.0-8.3)
--- NOTE | 2022-04-12 16:21 | CT Scan Report ---
CT head/brain wo con CLINICAL HISTORY: altered mental status Technique: Contiguous axial CT images of the head were acquired from the base of the skull to the martinez spencer without intravenous contrast administration. Images were viewed in brain, subdural and bone [facility] . Automated dose lowering techniques and/or adjustment according to patient size were utilized for this exam. Comparison: Comparison is made to CT head 02/28/2022 Findings: Numerous intracranial masses are seen, largest with surrounding vasogenic edema.. These appear to hav e enlarged from prior exam. For example a right frontal lesion measures 10 mm, compared to 7 mm in pr ior exam. A left parieto-occipital lesion measures 27 mm compared to 17 mm in prior exam. A right par ietal lesion measures 18 mm compared to 14 mm in prior exam. Some of these lesions demonstrate new hy perdensity, others demonstrate evolutionary changes of previously noted hemorrhage. Soft tissue mass in the left cheek. Imaged portions of the paranasal sinuses and mastoid air cells are clear. The orbits appear normal. Impression: Interval enlargement of numerous intracranial masses compatible with enlarging hemorrhagic metastases . Some lesions demonstrate new hemorrhage, others demonstrate interval evolutionary changes of blood products from prior CT. ACT 112: Negative or not required by law. Electronically signed by: Amando Melendez M.D. 04/12/2022 4:19 PM
[2022-04-12] MEDS ORDERED: dexAMETHasone**PF** 10 MG/ML VIAL IV ONE (16:30)
[2022-04-12 16:33] LABS: HCO3 VBG 35 mmol/L; Oxygen Saturation VBG < 60.0 %; PCO2 VBG 51 mmHg (38-50); PO2 VBG 24 mmHg; pH VBG 7.44 (7.36-7.41)
--- NOTE | 2022-04-12 17:05 | CT Scan Report ---
CT abd pelvis wo con CLINICAL HISTORY: pain TECHNIQUE: Helical axial images of the abdomen and pelvis were obtained. Automated dose lowering tech niques and/or adjustment according to patient size were utilized for this exam. This exam was perfor med without intravenous contrast. CT DOSE: 1378.48 mGycm COMPARISON: Comparison is made to PET/CT 01/24/2022 FINDINGS: Lower chest: Multiple pulmonary nodules are seen measuring up to 26 mm in the left lower lobe. Liver: Unremarkable. No focal lesions are seen. Gallbladder and biliary tree: No calcified gallstones. Normal caliber wall. No intra- or extrahepatic biliary ductal dilation. Pancreas: Unremarkable, no focal lesions. Spleen: Calcifications are noted in the spleen compatible with prior granulomatous disease. Adrenals: A right adrenal nodule measures 14 mm in diameter. Kidneys and ureters: A right renal cyst is seen. Bladder: Unremarkable. Reproductive organs: Unremarkable. Bowel: Unremarkable appearance of the bowel. The appendix is normal. Lymph nodes Retroperitoneal: Unremarkable. Pelvic: Unremarkable. Mesenteric: Unremarkable. Peritoneum: A few peritoneal nodules are seen concerning for peritoneal deposits. These were not well seen on prior PET/CT. These include a 14 mm nodule in the right lower quadrant (series 3 image 226) as well as a 14 mm nodule adjacent to the liver (image 102) Vessels: Atherosclerotic calcifications are seen. Abdominal wall: Unremarkable. Bones: Degenerative changes in the visualized spine. IMPRESSION: 1. No acute abnormalities are seen. 2. Numerous pulmonary nodules are seen in this patient with known metastatic melanoma. 3. Right adrenal metastasis noted. 4. Peritoneal soft tissue nodules, new from prior PET/CT, concerning for peritoneal disease. ACT 112: Negative or not required by law. Electronically signed by: Amando Melendez M.D. 04/12/2022 5:03 PM
--- NOTE | 2022-04-12 18:04 | History & Physical Report ---
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 Patient be maintained on dexamethasone and Keppra, he has completed whole brain irradiation and neck radiation he does see palliative care as an outpatient. I spoke to his daughter, who is his primary caregiver she feels that she wishes for us to support him to see if this is seizure related but if he does not wake up likely progress towards comfort care. I instructed him to discuss if he does not wake up their thoughts and feelings about hydration nutrition etc. We will of neurology consult to determine the best antiepileptic medications use and if an EEG be beneficial in a structural brain disease he likely would have background changes (2) Diabetes mellitus: Plan: Patient had endorgan damage with amputation of his toes. He is typically on glimepiride and metformin these will be held in favor of basal bolus insulin especially with the use of iv decadron (3) Benign essential hypertension: Plan: Patient is markedly hypertensive and tachycardic on presentation this likely may be due to inability to take oral medications the patient will be admitted to progressive care unit for scheduled metoprolol dosing and other maneuvers to help control his hypertensive urgency present on admission Patient typically is on metoprolol lisinopril (4) Gout: Plan: Patient typically in allopurinol all po medicines are held Plan Chemoprophylaxis is contraindicated for DVT prevention due to intracranial hemorrhages and his metastatic disease. History of Present Illness Primary Care Provider: Manuel Santiago MD 67-year-old male who was recently discharged from [facility] where he presented with decreased urine and stool output found to be obstipated with manual disimpaction. He does not have widely metastatic melanoma including melanoma to the brain. According to radiation oncology notes from February he completed whole brain radiation and palliative radiation to a neck mass. Patient presents with altered mental status and the fact that he stares blankly into space has a left gaze preference and does not answer questions. CT imaging in the ER shows interval enlargement of numerous intracranial masses compatible with enlarging hemorrhagic metastasis comments include frontal lesion expands to 10 mm from 7, left parietal occipital lesion expansile 27 mm compared to 17, right parietal lesion expanse 18 from 14. Patient was given Keppra and dexamethasone the emergency department patient did not tonic-clonic seizures but given his risk factors and blank stares is felt prudent to administer an antiepileptic Patient's family also states he had some diarrhea since his discharge from [facility] on 06 April which she was admitted for constipation and given cathartic agents they have since been held Allergies Allergy/AdvReac Type Severity Reaction Status Date / Time lovastatin Allergy Unknown CAN'T Verified 04/12/22 19:00 REMEMBER simvastatin Allergy Unknown CAN'T Verified 04/12/22 19:00 REMEMBER prochlorperazine AdvReac Intermediate Nausea Verified 04/12/22 19:00 [From Compazine] Home Medications Medication Instructions Recorded Confirmed Type blood sugar diagnostic ([place]. com. cnTouch #100 ea 02/02/19 04/12/22 Rx Ultra Blue Test Strip) lancets 33 gauge (OneTouch Delica #100 ea 02/02/19 04/12/22 Rx Lancets) blood-glucose meter #1 ea 11/14/19 04/12/22 Rx atorvastatin 80 mg tablet 40 mg PO BID 01/07/22 04/12/22 History omeprazole 40 mg capsule,delayed 40 mg PO QAM #30 caps 02/03/22 04/12/22 Rx release ondansetron HCl 8 mg tablet 8 mg PO Q8H PRN nausea and 02/03/22 04/12/22 Rx vomiting #30 tabs memantine 10 mg tablet (Namenda) 10 mg PO BID #60 tabs 02/26/22 04/12/22 Rx coenzyme Q10 100 mg capsule 100 mg PO DAILY 02/28/22 04/12/22 History (CoQ-10) gabapentin 100 mg capsule 100 mg PO BID 02/28/22 04/12/22 History glimepiride 1 mg tablet 1 mg PO DAILY #30 tabs 03/04/22 04/12/22 Rx allopurinol 100 mg tablet 100 mg PO BID #180 tabs 03/28/22 04/12/22 Rx metformin 1,000 mg tablet 1,000 mg PO BID #180 tabs 03/31/22 04/12/22 Rx metoprolol succinate 50 mg 50 mg PO DAILY #30 tabs 03/31/22 04/12/22 Rx tablet,extended release 24 hr docusate sodium 100 mg capsule 100 mg PO TID PRN Constipation 04/07/22 04/12/22 History polyethylene glycol 3350 17 gram 17 g PO DAILY PRN Constipation 04/07/22 04/12/22 History oral powder packet (Miralax) cholecalciferol (vitamin D3) 50 50 mcg PO DAILY 04/12/22 04/12/22 History mcg (2,000 unit) tablet (Vitamin D3) dexamethasone 2 mg tablet 2 mg PO BID 04/12/22 04/12/22 History magnesium oxide 500 mg tablet 500 mg PO BID 04/12/22 04/12/22 History memantine 10 mg tablet 10 mg PO BID 04/12/22 04/12/22 History Past Med/Surg History Medical History Amputated toe Right and Left Amputated toe of left foot Anemia Benign essential hypertension BPPV (benign paroxysmal positional vertigo) Changing skin lesion Controlled diabetes mellitus with diabetic neuropathy, without long-term current use of insulin Cough COVID-19 virus infection Diabetic peripheral neuropathy associated with type 2 diabetes mellitus Diverticulitis GERD (gastroesophageal reflux disease) Gout History of arteriography Hypercholesterolemia Hypophosphatasia Lightheadedness 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 Brother No problems noted. Brother No problems noted. Uncle Lung cancer Other No family history of adverse response to anesthesia No pertinent family history Social History Smoking Status: Former smoker packs per day: 0.5; Second Hand Exposure: No; Hx Alcohol Use: Yes Alcohol type: beer Alcohol Intake Frequency: 4 or More x per/Week Alcohol Intake Frequency Comment: average one drink per day, or less Hx Substance Use: No Preferred Language: Georgian Communication Ability: Effective Visual Impairment: Limited Hearing Ability: Normal [employer] Operator Required: No Beliefs That Will Affect Care: None marital status: Current Living Situation: Spouse current occupational status: employed current occupation: works in [employer] How many Children do You have: 2 Feels Safe at Home: Yes Childhood Exposure to Second-Hand Smoke: No during the past year weight has: remained stable Seatbelt Use: always Assistive Devices: None Review of Systems Review of Systems: Unobtainable due to cognitive status Physical Exam Physical Exam: The patient appeared well nourished and normally developed. Vital signs as documented. Head exam is normocephalic atraumatic Neck is without JVD, thyromegaly, or carotid bruits. Lungs are clear to auscultation, no focal loss of breath sounds Cardiac exam, Rhythm is regular.. No murmurs, rubs or gallops. Abdominal exam reveals normal bowel sounds, soft non tender, no masses Extremities are nonedematous and both pedal pulses are present Neurologic exam is alert and oriented, no focal loss of strength or sensation Skin is without bruises or rashes Psychologically is without concerns for anxiety or depression.. Results & Data Results & Data ([facility]) Vital Signs (Past 12 Hours) Vital Signs Temp Pulse Resp BP Pulse Ox O2 Del Method O2 Flow Rate 04/12/22 15:54 91 Nasal Cannula 2 04/12/22 15:26 99.0 F 103 H 20 149/100 H 90 Nasal Cannula 2 Diagnostic Findings Abdomen/Pelvis CT 04/12/22 15:36 CT abd pelvis wo con CLINICAL HISTORY: pain TECHNIQUE: Helical axial images of the abdomen and pelvis were obtained. Automated dose lowering techniques and/or adjustment according to patient size were utilized for this exam. This exam was performed without intravenous contrast. CT DOSE: 1378.48 mGycm COMPARISON: Comparison is made to PET/CT 01/24/2022 FINDINGS: Lower chest: Multiple pulmonary nodules are seen measuring up to 26 mm in the left lower lobe. Liver: Unremarkable. No focal lesions are seen. Gallbladder and biliary tree: No calcified gallstones. Normal caliber wall. No intra- or extrahepatic biliary ductal dilation. Pancreas: Unremarkable, no focal lesions. Spleen: Calcifications are noted in the spleen compatible with prior granulomatous disease. Adrenals: A right adrenal nodule measures 14 mm in diameter. Kidneys and ureters: A right renal cyst is seen. Bladder: Unremarkable. Reproductive organs: Unremarkable. Bowel: Unremarkable appearance of the bowel. The appendix is normal. Lymph nodes Retroperitoneal: Unremarkable. Pelvic: Unremarkable. Mesenteric: Unremarkable. Peritoneum: A few peritoneal nodules are seen concerning for peritoneal deposits. These were not well seen on prior PET/CT. These include a 14 mm nodule in the right lower quadrant (series 3 image 226) as well as a 14 mm nodule adjacent to the liver (image 102) Vessels: Atherosclerotic calcifications are seen. Abdominal wall: Unremarkable. Bones: Degenerative changes in the visualized spine. IMPRESSION: 1. No acute abnormalities are seen. 2. Numerous pulmonary nodules are seen in this patient with known metastatic melanoma. 3. Right adrenal metastasis noted. 4. Peritoneal soft tissue nodules, new from prior PET/CT, concerning for peritoneal disease. ACT 112: Negative or not required by law. Electronically signed by: Amando Melendez M.D. 04/12/2022 5:[address] 04/12/22 15:36 CT head/brain wo con CLINICAL HISTORY: altered mental status Technique: Contiguous axial CT images of the head were acquired from the base of the skull to the vertex without intravenous contrast administration. Images were viewed in brain, subdural and bone windows. Automated dose lowering techniques and/or adjustment according to patient size were utilized for this exam. Comparison: Comparison is made to CT head 02/28/2022 Findings: Numerous intracranial masses are seen, largest with surrounding vasogenic edema.. These appear to have enlarged from prior exam. For example a right frontal lesion measures 10 mm, compared to 7 mm in prior exam. A left parieto- occipital lesion measures 27 mm compared to 17 mm in prior exam. A right parietal lesion measures 18 mm compared to 14 mm in prior exam. Some of these lesions demonstrate new hyperdensity, others demonstrate evolutionary changes of previously noted hemorrhage. Soft tissue mass in the left cheek. Imaged portions of the paranasal sinuses and mastoid air cells are clear. The orbits appear normal. Impression: Interval enlargement of numerous intracranial masses compatible with enlarging hemorrhagic metastases. Some lesions demonstrate new hemorrhage, others demonstrate interval evolutionary changes of blood products from prior CT. ACT 112: Negative or not required by law. Electronically signed by: Amando Melendez M.D. 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
--- NOTE | 2022-04-12 18:14 | XRay Report ---
XR chest 1V portable CLINICAL HISTORY: Sepsis TECHNIQUE: Single frontal radiograph of the chest was obtained. Comparison: Comparison is made to chest radiograph 03/26/2022 FINDINGS: No lines and tubes are seen. Calcified aortic knob is seen. Lungs are underinflated. Linear opacities are seen most prominently in the left midlung. No evidence of pleural effusion or pneumothorax. IMPRESSION: Lungs are underinflated with likely atelectasis in the left lung. No definite airspace opacity to sug gest pneumonia. ACT 112: Negative or not required by law. Electronically signed by: Amando Melendez M.D. 04/12/2022 6:12 PM
[2022-04-12 20:51] LABS: Appearance Urine Clear (Clear); Bilirubin Urine Negative (Negative); Blood Urine Negative (Negative); Color Urine Yellow; Glucose Urine UA Negative (Negative); Ketones Urine Negative (Negative); Leukocyte Esterase Urine Negative (Negative); Nitrite Urine Negative (Negative); Protein Urine Negative (Negative); Specific Gravity Urine 1.016 (1.000-1.030); Urobilinogen Urine Negative (Negative)
[2022-04-12] MEDS ORDERED: DEXTROSE 50% 50 ML SYRINGE IV PRN (21:43)
[2022-04-12] MEDS ORDERED: ACETAMINOPHEN 325 MG TAB PO PRN (21:43)
[2022-04-12] MEDS ORDERED: CARBOHYDRATES FOR HYPOGLYCEMIA PO PRN (21:43)
[2022-04-12] MEDS ORDERED: GLUCAGON FOR INJ 1 MG VIAL SQ PRN (21:43)
[2022-04-12] MEDS ORDERED: LORazepam 2 MG/1 ML VIAL IV PRN (21:43)
[2022-04-12] MEDS ORDERED: ONDANSETRON INJ 2 MG/ML 2 ML VIAL IV PRN (21:43)
[2022-04-12] MEDS ORDERED: GLUCOSE 40% GEL 15 GM TUBE PO PRN (21:43)
[2022-04-12] MEDS ORDERED: ALUMINUM/MAGNESIUM SUSP 30 ML UDC PO PRN (21:43)
[2022-04-12] MEDS ORDERED: hydrALAZINE HCL 20 MG/ML VIAL IV PRN (21:43)
[2022-04-12] MEDS ORDERED: GLUCOSE 10 TAB/TUBE PO PRN (21:43)
[2022-04-12] MEDS ORDERED: dexAMETHasone 4 MG in SYRINGE 0 ML IV ONE (22:00)
[2022-04-12] MEDS: METOPROLOL TARTRATE 1 MG/ML VIAL IV SCH (22:23)
[2022-04-12] MEDS: SODIUM CHLORIDE 0.9% 1000ML 1,000 ML IV SCH (22:29)
[2022-04-12] MEDS: MAGNESIUM SULFATE / D5W 1 GM/100 ML BAG IV SCH (22:32)
[2022-04-12] MEDS: INSULIN ASPART PER UNIT SC SCH (23:13)
[2022-04-12] MEDS: LANTUS PER UNIT CHARGE SQ SCH (23:13)
[2022-04-13] MEDS: MAGNESIUM SULFATE / D5W 1 GM/100 ML BAG IV SCH ×3 (00:02→03:48)
[2022-04-13] MEDS: METOPROLOL TARTRATE 1 MG/ML VIAL IV SCH ×6 (02:31→23:46)
[2022-04-13] MEDS ORDERED: levETIRAcetam 500 MG in 0.9 % SODIUM CHLORIDE 100 ML IV SCH (06:00)
[2022-04-13] MEDS ORDERED: HYDROmorphone INJ 0.5 MG/0.5 ML SYR IV STA (06:05)
[2022-04-13] MEDS: SODIUM CHLORIDE 0.9% 1000ML 1,000 ML IV SCH (06:07)
[2022-04-13] MEDS: INSULIN ASPART PER UNIT SC SCH ×4 (06:07→23:44)
[2022-04-13 07:24] LABS: Hematocrit (blood only) 32.5 % (40.1-51.0); Hemoglobin 11.3 g/dl (14.0-18.0); Mean Corpuscular Hemoglobin 32.7 pg (25.0-34.0); Mean Corpuscular Hgb Conc 34.8 g/dL (32.0-36.0); Mean Corpuscular Volume 93.9 fL (80.0-100.0); Mean Platelet Volume 9.9 fL (9.4-12.4); Platelet Count 127 K/uL (130-400); RDW Coefficient of Variation 17.1 % (11.5-14.5); RDW Standard Deviation 58.1 fL (36.4-46.3); Red Blood Count 3.46 M/uL (4.63-6.08); White Blood Count 5.14 K/ul (4.8-10.8)
[2022-04-13 07:48] LABS: BUN Creatinine Ratio 33.9 (10-20); Calcium 7.8 mg/dl (8.5-10.1); Creatinine Clr Calc Pharmacy 124.3 ml/min; Est GFR (Non-African American) 102.7 ml/min; Magnesium 2.1 mg/dl (1.7-2.4); Potassium 4.5 mmol/L (3.5-5.1)
[2022-04-13] MEDS ORDERED: dexAMETHasone 6 MG in SYRINGE 0 ML IV SCH (09:00)
[2022-04-13 09:15] LABS: A calco-baum cmplx NotReported Not Detected (NotDetected); Bact fragilis Not Reported Not Detected (NotDetected); C auris Not Reported Not Detected (NotDetected); Calbicans Not Reported Not Detected (NotDetected); Candida glabrata Not Reported Not Detected (NotDetected); Candida krusei Not Reported Not Detected (NotDetected); Cneoformans/gatti Not Reported Not Detected (NotDetected); Cparapsilosis Not Reported Not Detected (NotDetected); Ctropicalis Not Reported Not Detected (NotDetected); E cloacae compx Not Reported Not Detected (NotDetected); Efaecalis Not Reported Not Detected (NotDetected); Efaecium Not Reported Not Detected (NotDetected); Enterobacterales Not Reported Not Detected (NotDetected); Escherichia coli Not Reported Not Detected (NotDetected); H influenzae Not Reported Not Detected (NotDetected); K aerogenes Not Reported Not Detected (NotDetected); Koxytoca Not Reported Not Detected (NotDetected); Kpneumoniae grp Not Reported Not Detected (NotDetected); Lmonocyt Not Reported Not Detected (NotDetected); N meningitidis Not Reported Not Detected (NotDetected); P aeruginosa Not Reported Not Detected (NotDetected); Proteus spp Not Reported Not Detected (NotDetected); Salmonella spp Not Reported Not Detected (NotDetected); Smarcescens Not Reported Not Detected (NotDetected); Staph lugdunensis Not Reported Not Detected (NotDetected); Staph spp. Not Reported DETECTED (NotDetected); Staphaureus Not Reported DETECTED (NotDetected); Staphepi Not Reported Not Detected (NotDetected); Staphylococcus spp. DETECTED (NotDetected); Stenmaltophilia Not Reported Not Detected (NotDetected); Strep agal(GrpB) Not Reported Not Detected (NotDetected); Strep pneum Not Reported Not Detected (NotDetected); Strep pyog (GrpA) Not Reported Not Detected (NotDetected); Strep spp Not Reported Not Detected (NotDetected)
[2022-04-13 09:30] LABS: mecAC+MREJ Resistant Gene MRSA DETECTED (NotDetected)
[2022-04-13] MEDS: POLYETHYLENE (MIRALAX) 17 GM PACK PO SCH (09:47)
[2022-04-13] MEDS: LANTUS PER UNIT CHARGE SQ SCH ×2 (09:57→15:05)
--- NOTE | 2022-04-13 10:33 | Electrocardiogram Report ---
Test Reason : Blood Pressure : / mmHG Vent. Rate : 098 BPM Atrial Rate : 098 BPM P-R Int : 140 ms QRS Dur : 104 ms QT Int : 334 ms P-R-T Axes : 018 -17 064 degrees QTc Int : 426 ms Poor data quality, interpretation may be adversely affected Normal sinus rhythm Non-specific intra-ventricular conduction delay When compared with ECG of 26-MAR-2022 10:05, PAC's is no longer Present Confirmed by Yg Kinney ([id number]) on 04/13/2022 10:33:31 AM Referred By: REFERRED SELF Confirmed By:Yg Kinney
--- NOTE | 2022-04-13 13:58 | Hospitalist Progress Note ---
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 Patient be maintained on dexamethasone and Keppra, he has completed whole brain irradiation and neck radiation he does see palliative care as an outpatient. I spoke to his daughter, who is his primary caregiver she feels that she wishes for us to support him to see if this is seizure related but if he does not wake up likely progress towards comfort care. I instructed him to discuss if he does not wake up their thoughts and feelings about hydration nutrition etc. -Pending neurology consult, Patient is still encephalopathic Increase the dose of Decadron to 4 mg every 6 hours (2) Diabetes mellitus: Plan: Hypoglycemic Increase the dose of Lantus to 20 units daily Monitor serum glucose every 6 hours (3) Benign essential hypertension: Plan: According to the admission note patient had uncontrolled hypertension with tachycardia, and follow-up with home blood pressure is fairly controlled with current management, currently patient is receiving metoprolol 5 mg every 4 hours intravenously I will change it to 10 mg every 6 hours Patient typically is on metoprolol lisinopril (4) Gout: Plan: Patient typically in allopurinol all po medicines are held Plan Chemoprophylaxis is contraindicated for DVT prevention due to intracranial hemorrhages and his metastatic disease. Admission and Anticipated Discharge Date Admission Date: April 12, 2022 Physical Exam Physical Exam: The patient appeared well nourished and normally developed. Vital signs as documented. Head exam is normocephalic atraumatic Neck is without JVD, thyromegaly, or carotid bruits. Lungs are clear to auscultation, no focal loss of breath sounds Cardiac exam, Rhythm is regular.. No murmurs, rubs or gallops. Abdominal exam reveals normal bowel sounds, soft non tender, no masses Extremities are nonedematous and both pedal pulses are present Neurologic exam is alert and oriented, no focal loss of strength or sensation Skin is without bruises or rashes Psychologically is without concerns for anxiety or depression.. Results & Data Results & Data ([facility]) Vital Signs (Past 12 Hours) Vital Signs Temp Pulse Pulse Resp BP BP Pulse Ox 04/13/22 13:44 86 136/91 04/13/22 09:57 87 145/91 H 04/13/22 08:11 36.5 C 86 20 165/103 H 97 04/13/22 06:07 103 H 158/98 H 04/13/22 06:01 103 H 158/98 H 04/13/22 04:38 94 H 155/98 H 04/13/22 03:49 81 166/107 H 04/13/22 03:09 84 24 153/96 H 97 04/13/22 02:32 37.3 C 99 H 24 165/113 H 98 04/13/22 02:31 99 H 165/113 H O2 Del Method 04/13/22 13:44 04/13/22 09:57 04/13/22 08:11 Room Air 04/13/22 06:07 04/13/22 06:01 04/13/22 04:38 04/13/22 03:49 04/13/22 03:09 Room Air 04/13/22 02:32 Room Air 04/13/22 02:31 PG Care Time/CCT Total # of Minutes Spent Total Time Spent with Patient: Total time spent is greater than 50% in coordination of care (as documented) at patient's floor/unit and/or counseling patient: Coding Level of Care Code 53932 Subseq Hosp Care Lvl 3 Diagnoses 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
--- NOTE | 2022-04-13 14:15 | Neurology Consultation ---
Date of Consultation April 13, 2022 Assessment & Plan (1) Acute alteration in mental status: By report, patient had declining cognition occur fairly suddenly over the past day or 2. At present he is nonverbal, but does awaken, with prominent right gaze preference. Imaging shows the largest lesion to be in the left temporal region, which could explain the mutism if it had recently bled further. Focal seizure emanating from this left temporal lesion could explain a right gaze preference, though I see no nystagmus. Nonetheless, patient is at high risk to seize because of these metastasis with secondary hemorrhage. We will try IV Ativan in a couple of increments. We will increase Keppra to 1000 mg twice daily. Will attempt EEG as soon as it can be arranged. If current condition is due to occult seizure, even if the seizures are brought under control, his prognosis remains very poor. History of Present Illness Reason for Consultation: Change in mental status. Attending Physician: Chucky Mcknight MD History of Present Illness Patient can provide no history. Based on notes, he has had disseminated melanoma including mets to the brain, some of which have known to be hemorrhagic. Apparently up till the past day or so though he was able to converse and have reasonable ability to enjoy life. Starting a day or so ago, he became apparently relatively unable to speak. No tonic or clonic movements are reported. Allergies Allergy/AdvReac Type Severity Reaction Status Date / Time lovastatin Allergy Unknown CAN'T Verified 04/12/22 19:00 REMEMBER simvastatin Allergy Unknown CAN'T Verified 04/12/22 19:00 REMEMBER prochlorperazine AdvReac Intermediate Nausea Verified 04/12/22 19:00 [From Compazine] Home Medications Medication Instructions Recorded Confirmed Type blood sugar diagnostic (OneTouch #100 ea 02/02/19 04/12/22 Rx Ultra Blue Test Strip) lancets 33 gauge (OneTouch Delica #100 ea 02/02/19 04/12/22 Rx Lancets) blood-glucose meter #1 ea 11/14/19 04/12/22 Rx atorvastatin 80 mg tablet 40 mg PO BID 01/07/22 04/12/22 History omeprazole 40 mg capsule,delayed 40 mg PO QAM #30 caps 02/03/22 04/12/22 Rx release ondansetron HCl 8 mg tablet 8 mg PO Q8H PRN nausea and 02/03/22 04/12/22 Rx vomiting #30 tabs memantine 10 mg tablet (Namenda) 10 mg PO BID #60 tabs 02/26/22 04/12/22 Rx coenzyme Q10 100 mg capsule 100 mg PO DAILY 02/28/22 04/12/22 History (CoQ-10) gabapentin 100 mg capsule 100 mg PO BID 02/28/22 04/12/22 History glimepiride 1 mg tablet 1 mg PO DAILY #30 tabs 03/04/22 04/12/22 Rx allopurinol 100 mg tablet 100 mg PO BID #180 tabs 03/28/22 04/12/22 Rx metformin 1,000 mg tablet 1,000 mg PO BID #180 tabs 03/31/22 04/12/22 Rx metoprolol succinate 50 mg 50 mg PO DAILY #30 tabs 03/31/22 04/12/22 Rx tablet,extended release 24 hr docusate sodium 100 mg capsule 100 mg PO TID PRN Constipation 04/07/22 04/12/22 History polyethylene glycol 3350 17 gram 17 g PO DAILY PRN Constipation 04/07/22 04/12/22 History oral powder packet (Miralax) cholecalciferol (vitamin D3) 50 50 mcg PO DAILY 04/12/22 04/12/22 History mcg (2,000 unit) tablet (Vitamin D3) dexamethasone 2 mg tablet 2 mg PO BID 04/12/22 04/12/22 History magnesium oxide 500 mg tablet 500 mg PO BID 04/12/22 04/12/22 History memantine 10 mg tablet 10 mg PO BID 04/12/22 04/12/22 History Patient History Medical History Amputated toe Right and Left Amputated toe of left foot Anemia Benign essential hypertension BPPV (benign paroxysmal positional vertigo) Changing skin lesion Controlled diabetes mellitus with diabetic neuropathy, without long-term current use of insulin Cough COVID-19 virus infection Diabetic peripheral neuropathy associated with type 2 diabetes mellitus Diverticulitis GERD (gastroesophageal reflux disease) Gout History of arteriography Hypercholesterolemia Hypophosphatasia Lightheadedness 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 Brother No problems noted. Brother No problems noted. Uncle Lung cancer Other No family history of adverse response to anesthesia No pertinent family history Social History Smoking Status: Unknown if ever smoked packs per day: 0.5; Second Hand Exposure: No; Hx Substance Use: No Preferred Language: Indonesian Communication Ability: Unable Visual Impairment: Limited Hearing Ability: Normal Private Duty Rn Required: No Beliefs That Will Affect Care: None marital status: Current Living Situation: Spouse current occupational status: employed current occupation: works in [employer] How many Children do You have: 2 Feels Safe at Home: Declines to Answer and Hesitant to Answer Childhood Exposure to Second-Hand Smoke: No during the past year weight has: remained stable Seatbelt Use: always Assistive Devices: None Review of Systems Review of Systems: Unobtainable. Physical Exam Physical Exam: Lying in hospital bed, eyes closed. On passive eye opening, he has a right gaze preference. He does grimace in response to pain. No nystagmoid movements are seen. I cannot get his eyes to come to midline or to the left. No clear facial asymmetry. He makes no attempt to speak. Does not move extremities. Resting tone in the limb seems reasonably symmetric. No adventitious movements seen. Reflexes brisk throughout. Results & Data ([facility]) Vital Signs (Past 12 Hours) Vital Signs Temp Pulse Pulse Resp BP BP Pulse Ox 04/13/22 13:44 86 136/91 04/13/22 09:57 87 145/91 H 04/13/22 08:11 36.5 C 86 20 165/103 H 97 04/13/22 06:07 103 H 158/98 H 04/13/22 06:01 103 H 158/98 H 04/13/22 04:38 94 H 155/98 H 04/13/22 03:49 81 166/107 H 04/13/22 03:09 84 24 153/96 H 97 04/13/22 02:32 37.3 C 99 H 24 165/113 H 98 04/13/22 02:31 99 H 165/113 H O2 Del Method 04/13/22 13:44 04/13/22 09:57 04/13/22 08:11 Room Air 04/13/22 06:07 04/13/22 06:01 04/13/22 04:38 04/13/22 03:49 04/13/22 03:09 Room Air 04/13/22 02:32 Room Air 04/13/22 02:31
[2022-04-13] MEDS: D5W AND NSS 1,000 ML IV SCH (14:59)
[2022-04-13] MEDS: levETIRAcetam 1,000 MG in 0.9 % SODIUM CHLORIDE 100 ML IV SCH (15:01)
[2022-04-13] MEDS: dexAMETHasone 4 MG in SYRINGE 0 ML IV SCH ×2 (15:01→21:56)
[2022-04-13] MEDS ORDERED: MoRPHine SULFATE 2 MG/ML CARP IV PRN (17:59)
[2022-04-14] MEDS: D5W AND NSS 1,000 ML IV SCH ×2 (01:54→16:09)
[2022-04-14] MEDS: levETIRAcetam 1,000 MG in 0.9 % SODIUM CHLORIDE 100 ML IV SCH ×2 (02:57→16:08)
[2022-04-14] MEDS: dexAMETHasone 4 MG in SYRINGE 0 ML IV SCH ×4 (04:02→22:35)
[2022-04-14] MEDS: INSULIN ASPART PER UNIT SC SCH ×3 (06:00→17:37)
[2022-04-14] MEDS: METOPROLOL TARTRATE 1 MG/ML VIAL IV SCH ×3 (06:08→17:28)
[2022-04-14 07:19] LABS: Hemoglobin 11.1 g/dl (14.0-18.0); Mean Corpuscular Hemoglobin 32.7 pg (25.0-34.0); Mean Corpuscular Hgb Conc 34.7 g/dL (32.0-36.0); Mean Corpuscular Volume 94.4 fL (80.0-100.0); Mean Platelet Volume 9.4 fL (9.4-12.4); Platelet Count 138 K/uL (130-400); RDW Coefficient of Variation 17.4 % (11.5-14.5); RDW Standard Deviation 59.3 fL (36.4-46.3); Red Blood Count 3.39 M/uL (4.63-6.08); White Blood Count 5.35 K/ul (4.8-10.8)
[2022-04-14 07:51] LABS: BUN Creatinine Ratio 32.7 (10-20); Calcium 7.9 mg/dl (8.5-10.1); Creatinine Clr Calc Pharmacy 140.3 ml/min; Est GFR (Non-African American) 107.8 ml/min; Magnesium 1.7 mg/dl (1.7-2.4)
[2022-04-14] MEDS: POLYETHYLENE (MIRALAX) 17 GM PACK PO SCH (08:30)
[2022-04-14] MEDS: LANTUS PER UNIT CHARGE SQ SCH (08:33)
[2022-04-14] MEDS ORDERED: VANCOMYCIN CONSULT ACTIVE PRN (11:44)
[2022-04-14] MEDS ORDERED: VANCOMYCIN HCL 2,000 MG in SODIUM CHLORIDE 0.9% 500 ML IV STA (11:51)
--- NOTE | 2022-04-14 13:06 | Pharmacy Report ---
Pharmacy PK ABX Note - Date of Service April 14, 2022 - Assessment and Plan Assessment 67 year old M receiving Vancomycin for treatment of bacteremia. * PMHx significant for melanoma with mets to the brain. * Afebrile. No white count. Procal negative. * Anaerobic bottle from 1 of 2 blood cultures growing staph species that was identified as MRSA by BCID2 panel. Recommended starting Vancomycin. * Repeat blood cultures pending. Plan Vancomycin * Loading dose: 2000 mg IV x 1 * Maintenance dose: 1250 mg IV every 12 hours * Regimen is predicted to achieve target AUC/JUSTIN of 400-600 mg/L.hr * Random level ordered for: 04/16/22 Pharmacy will continue to follow and will adjust dose/frequency as necessary. Thank you. Pharmacy has transitioned to AUC monitoring for vancomycin. AUC/JUSTIN is the preferred PK/PD target and is associated with decreased risk of nephrotoxicity compared to traditional trough targets.
--- NOTE | 2022-04-14 15:45 | Neurology Progress Note ---
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 Sudden neurologic decline over the past couple of days of unexplained etiology. Largest lesion is in the left temporal region, may be responsible for this decline, but cannot rule out seizures. Patient did receive Ativan 2 mg yesterday and does seem improved today, eyes are midline now. Also on Keppra. Still awaiting EEG. Admission and Anticipated Discharge Date Admission Date: April 12, 2022 Subjective Patient can provide no history, nurse says no seizure activity has been observed. Nurse reports patient intermittently grunts when asked questions. Review of Systems Review of Systems: Unobtainable. Physical Exam Physical Exam: Sleeping soundly. Does not open eyes when I stimulate him, but does reposition. On passive eye opening, eyes are midline, he will occasionally look to both sides of the room. Resting tone is normal. No adventitious movements seen. Neck seems reasonably supple. Results & Data ([facility]) Vital Signs (Past 12 Hours) Vital Signs Temp Pulse Pulse Resp BP BP Pulse Ox 04/14/22 15:16 37.0 C 88 22 143/86 H 95 04/14/22 12:09 105 H 04/14/22 11:24 36.5 C 94 H 16 165/96 H 94 04/14/22 08:13 36.4 C L 85 19 164/104 H 99 04/14/22 06:08 76 151/92 H 04/14/22 06:06 76 151/92 H O2 Del Method 04/14/22 15:16 Room Air 04/14/22 12:09 04/14/22 11:24 Room Air 04/14/22 08:13 Room Air 04/14/22 06:08 04/14/22 06:06
--- NOTE | 2022-04-14 17:28 | Hospitalist Progress Note ---
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 Patient be maintained on dexamethasone and Keppra, he has completed whole brain irradiation and neck radiation he does see palliative care as an outpatient. I spoke to his daughter, who is his primary caregiver she feels that she wishes for us to support him to see if this is seizure related but if he does not wake up likely progress towards comfort care. I instructed him to discuss if he does not wake up their thoughts and feelings about hydration nutrition etc. -Pending neurology consult, Patient is still encephalopathic Increase the dose of Decadron to 4 mg every 6 hours 04/14 -Some mild improvement in mental status, continue Keppra, continue current dose of Decadron, awaiting for EEG, follow no neurology (2) Diabetes mellitus: Plan: Hypoglycemic Increase the dose of Lantus to 20 units daily Monitor serum glucose every 6 hours (3) Benign essential hypertension: Plan: According to the admission note patient had uncontrolled hypertension with tachycardia, and follow-up with home blood pressure is fairly controlled with current management, currently patient is receiving metoprolol 5 mg every 4 hours intravenously I will change it to 10 mg every 6 hours Patient typically is on metoprolol lisinopril (4) Gout: Plan: Patient typically in allopurinol all po medicines are held Plan Chemoprophylaxis is contraindicated for DVT prevention due to intracranial hemorrhages and his metastatic disease. Admission and Anticipated Discharge Date Admission Date: April 12, 2022 Subjective Waiting for EEG continue Keppra, mental status has mildly improved, however is not improved to the point can start oral Physical Exam Physical Exam: The patient appeared well nourished and normally developed. Vital signs as documented. Head exam is normocephalic atraumatic Neck is without JVD, thyromegaly, or carotid bruits. Lungs are clear to auscultation, no focal loss of breath sounds Cardiac exam, Rhythm is regular.. No murmurs, rubs or gallops. Abdominal exam reveals normal bowel sounds, soft non tender, no masses Extremities are nonedematous and both pedal pulses are present Neurologic exam is alert and oriented, no focal loss of strength or sensation Skin is without bruises or rashes Psychologically is without concerns for anxiety or depression.. Results & Data Results & Data ([facility]) Vital Signs (Past 12 Hours) Vital Signs Temp Pulse Pulse Resp BP BP Pulse Ox 04/14/22 15:16 37.0 C 88 22 143/86 H 95 04/14/22 12:09 105 H 04/14/22 11:24 36.5 C 94 H 16 165/96 H 94 04/14/22 08:13 36.4 C L 85 19 164/104 H 99 04/14/22 06:08 76 151/92 H 04/14/22 06:06 76 151/92 H O2 Del Method 04/14/22 15:16 Room Air 04/14/22 12:09 04/14/22 11:24 Room Air 04/14/22 08:13 Room Air 04/14/22 06:08 04/14/22 06:06 PG Care Time/CCT Total # of Minutes Spent Total Time Spent with Patient: Total time spent is greater than 50% in coordination of care (as documented) at patient's floor/unit and/or counseling patient: Coding Level of Care Code 97446 Subseq Hosp Care Lvl 2 Diagnoses 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
[2022-04-14] MEDS: VANCOMYCIN HCL 1,250 MG in SODIUM CHLORIDE 0.9% 250 ML IV SCH (22:40)
[2022-04-15] MEDS: INSULIN ASPART PER UNIT SC SCH ×3 (00:07→11:55)
[2022-04-15] MEDS: levETIRAcetam 1,000 MG in 0.9 % SODIUM CHLORIDE 100 ML IV SCH ×2 (02:41→14:00)
[2022-04-15] MEDS: dexAMETHasone 4 MG in SYRINGE 0 ML IV SCH ×4 (04:23→23:42)
[2022-04-15] MEDS ORDERED: VANCOMYCIN HCL 1,000 MG/270 ML BAG IV SCH (06:00)
[2022-04-15] MEDS: METOPROLOL TARTRATE 1 MG/ML VIAL IV SCH ×5 (06:21→23:43)
[2022-04-15] MEDS: D5W AND NSS 1,000 ML IV SCH ×2 (06:25→21:15)
[2022-04-15 07:09] LABS: Hematocrit (blood only) 32.2 % (40.1-51.0); Hemoglobin 11.6 g/dl (14.0-18.0); Mean Corpuscular Hemoglobin 33.1 pg (25.0-34.0); Mean Platelet Volume 9.2 fL (9.4-12.4); Platelet Count 151 K/uL (130-400); White Blood Count 5.26 K/ul (4.8-10.8)
[2022-04-15 07:29] LABS: BUN Creatinine Ratio 34.1 (10-20); Calcium 7.9 mg/dl (8.5-10.1); Creatinine Clr Calc Pharmacy 172.9 ml/min; Est GFR (Non-African American) 118.2 ml/min; Magnesium 1.5 mg/dl (1.7-2.4); Potassium 3.6 mmol/L (3.5-5.1)
[2022-04-15] MEDS: POLYETHYLENE (MIRALAX) 17 GM PACK PO SCH (09:17)
[2022-04-15] MEDS: LANTUS PER UNIT CHARGE SQ SCH (09:17)
[2022-04-15] MEDS: VANCOMYCIN HCL 1,250 MG in SODIUM CHLORIDE 0.9% 250 ML IV SCH (09:18)
--- NOTE | 2022-04-15 14:03 | Palliative Care Consultation ---
Date of Consultation April 15, 2022 Assessment & Plan (1) Palliative care encounter: Pt is critically ill. He is not a candidate for more cancer directed therapy. Imaging supports progressive met melanoma with bleeding and vasogenic edema. Daughter/POCarri Disla and son in law (VIKKI) at bedside. She shares that her mom, pt , is in ED with GBM related seizures. She was supposed to have home caregivers but they have not shown up and went days without her seizure meds. Dtr lives in [place] and drives 2+ hrs to see pt and . She has a sister who is in [place] but sister is not engaged in care or close to family. Nighat, her and I met with family meeting room x 35min for GOC/ACP d iscussion. 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 Despite treatment, he has not made substantial recovery, AMS persists and he is declining. Nighat affirms he has jimmy steadily declining since December and the treatments have only worsened this decline as he grew weaker and frail. Nighat states pt has been trying anything offered because he wanted to be around to care for his who has a met GBM - is blind, bedbound and needs ATC care, pt wanted very much to provide this care but has been steadily declining. Nighat has been trying to do everything for both parents but lives 2 hr away, has a with TBI and 2 teenagers in school, she is also dealing with a progressive autoimmune condition of her own and struggles to handle the physical needs of her parents at the expense of her own health. (2) Discussion about advance care planning held with family member: I advised Nighat and her that patient is transitioning from a process of living to a process of dying. His cancer is transitioning to a terminal or end- stage process and at this time I strongly recommend a transition to comfort care, with the addition of a general inpatient hospice evaluation by hospice with a plan for transition to hospice at a local [facility] facility close to their home. As noted, his is currently in the emergency room pending admission for uncontrolled seizures with progressive GBM. Aidan ideally would like to have both parents either located near each other and then subsequently discharged to the same mcc. She and her are in agreement with a transition to comfort care, noting that patient is in no condition at this point to tolerate any more cancer directed treatment nor is her mother in any way stable to remain at home and now requires placement which is in part why she brought her to the hospital today. Currently has been having very alvin discussions with her father through the course of his illness and he had always maintained that should he become terminally ill or nearing end stages he would want to be assured of comfort but no aggressive or heroic interventions and nothing to prolong the dying process. His primary goal was to be around as long as he could to help care for his but if he reached a point where he can no longer participate in her care and was steadily declining, he wanted to be short of comfort but not have a prolonged dying process. Aidan understands and states that she knows patient is moving towards the dying process. She states that she has been watching him decline for the last several months but more sharply over the past few weeks. He was not able to do anything for himself at home. He was not helpful to help care for his in any way. He was becoming more and more debilitated and not even able to take his own medications. He has had numerous emergency evaluations and Nighat states that the burden of his illness has clearly become so overwhelming that he is beginning to suffer in a way that he did not want prolonged. She is in agreement with movement to a comfort plan of care and agrees with the recommendation for an inpatient hospice admission. Additional information was provided as follows: TEACHING THE FAMILY WHAT TO EXPECT WHEN THE PATIENT IS DYING (from Jeffrey Elias MD, PhD) Introduction: Family members look to the medical team to help them know what to expect when a loved one is dying. No matter the underlying causes, there is a common final pathway that most patients travel. 1. Social Withdrawal is normal for the dying patient as the person becomes less concerned about his or her surroundings. Separation begins first from the world no more interest in newspaper or television, then from people no more neighbors visiting, and finally from the children, grandchildren and perhaps even those persons most loved. With this withdrawal comes less of a need to communicate with others, even with close family. 2. Food: The patient will have a decreased need for food and drink as the body is preparing to . This is one of the hardest things for some family to accept. There is a gradual decrease in interest in eating and appetiteeven for their favorite foods. Interest may come and go. The patient is not starving to deaththis reflects the underlying disease. Liquids are preferred to solids follow the patients lead and do not force feed. 3. Sleep: The patient will spend more and more time sleeping; it may be difficult for them to keep their eyes open. This is a result of a change in the bodys metabolism as a result of the disease. Tell family to spend more time with the patient during those times when he/she is most alert; this might be the middle of the night. 4. Disorientation: The patient may become confused about time, place and the identity of people around him/her. He/she may see people who are not there, such as family members who have already . Sometimes patients describe welcoming or beckoning. While the patient may not be distressed, it is frequently distressing to family or health healthcare educator. Gently orient the patient if he or she asks. There is no need to correct the patient if he or she is not distressed. 5. Restlessness: The patient may become restless and pull at the bed linens. These symptoms are also a change in the bodys metabolism. Talk calmly and assuredly with the patient so as not to startle or frighten them. If the patient is a danger to himself or others, you may prescribe sedating neuroleptics (e.g.chlorpromazine), or neuroleptics (e.g. haloperidol) in combination with benzodiazepines (e.g. lorazepam), to help the patient rest. 6. Decreased Senses: Clarity of hearing and vision may decrease. Soft lights in the room may prevent visual misinterpretations. Never assume that the patient cannot hear you, as hearing is the last of the five senses to be lost. 7. Incontinence of urine and bowel movements is often not a problem until is very near. Invite family to participate in direct care; the nurse can help place absorbent pads under the patient for more comfort and cleanliness, or a urinary catheter may be used. The amount of urine will decrease and the urine become darker as becomes near. 8. Physical Changes as approaches: a. The blood pressure decreases; the pulse may increase or decrease. c. The body temperature can fluctuate; fever is common. d. There is increased perspiration often with clamminess. e. The skin color changes: flushed with fever, bluish with cold. A pale yellowish pallor (not to be confused with jaundice) often accompanies approaching . f. Breathing changes also occur. Respirations may increase, decrease or become irregular; periods of no breathing (apnea) are common. g. Congestion will present as a rattling sound in the lungs and/or upper throat. This occurs because the patient is too weak to clear the throat or cough. The congestion can be affected by positioning, may be very loud, and sometimes just comes and goes. Anticholinergic medications (like scopolamine or glycopyrrolate) can help (see Fast Fact #109). Elevating the head of bed and swabbing the mouth with oral swabs give comfort and give the family something to do. h. The arms and legs may become cool to the touch. The hands and feet become purplish. The knees, ankles and elbows are blotchy. These symptoms are a result of decreased circulation. i. The patient will enter a coma before and not respond to verbal or tactile stimuli. HOW TO KNOW THAT HAS OCCURRED No breathing and heartbeat. Loss of control of bowel or bladder. No response to verbal commands or gentle shaking. Eyelids slightly open; eyes fixed on a certain spot. Jaw relaxed and mouth slightly open. Acknowledgement: This Fact Fact was adapted with permission from a family information handout (The Blue Sheet) given to families of [facility]. References 1. Edgar Gonzalez I. The terminal phase. In: Peter Morales, Evelin MORA, Arnulfo Irizarry, eds. Jackson Textbook of Palliative Medicine. 2nd ed. [place], [place]: [employer]; 1998. 2. Anni J, Romel C. Care of the dying patient: the last hours or days of life. BMJ. 2003; 326(0004):30-4. 3. Vidal FD, colt Sutton CF, Miguel LL. Competency in End of Life Care: the last hours of living. J Palliat Med. 2003; 6(4):605-613. Josef referenced that that she researched changes patient may go through at the end of life she knew that there may also be an end-of-life "rally," which may be misleading as it would appear patient is eventually improving although it would be transient and not sustained. We spoke about how when a person facing the end of life rallies, they seem to become "more stable" - may want to talk or even begin taking PO; this phenomenon is usually seen as a sudden burst of energy before . This period of perking up can be accompanied by such a notable change in mental clarity that is often referred to as terminal lucidity. This change in cognition and behavior goes against everything families learn about the physical signs that the end of life is near. It is important to note that evidence-based data is elusive, if nonexistent. Theories support that it may be a search for a final, strong connection. Also, as organs shut down, they can release a steroid like compound that briefly rouses the body - in the specific case of brain tumors, swelling occurs in the confined space of the skull. The edema shrinks as EOL care patients are weaned off food and drink, waking up the brain a bit. Families and caregivers may grasp at what seems to be a turnaround in our loved ones health and sigh with relief. However, the EOL Rally is a hallmark pre- sign. It is not uncommon for patients to show improvement before : they may want to talk, others may become restless or act as if they need to start preparing for a trip. Others will simply become more relaxed yet remain tuned in to what is going on around them. Still others will show signs of physical stability when, seconds before, they seemed on the verge of letting go. A rally can last for a few moments or even days. Short or long, these temporary improvements can have a profound effect on loved ones who are keeping bolaños. Like a moment of clarity for someone who has dementia, a rally is one last opportunity to connect with a loved one. Each persons experience is unique and impossible to predict with total accuracy. Life is full of questions, and some of them simply are not meant to be answered. Read more: [email or web address]-[email or web address].html (3) Malignant melanoma metastatic to brain: (4) Acute alteration in mental status: (5) Encounter for hospice care discussion: I have provided education about the hospice benefit. Hospice is an interdisciplinary program offered by nurses, nurses aides, social workers, chaplains and a medical insurance collector for patients with a terminal condition and a life expectancy of less than 6 months. The goal would be to improve the quality of life of the patient in their home setting (home, mcc, inpatient hospice setting) by providing symptoms management, psychosocial and spiritual support. However, they cannot offer 24 hours care and if the family is unable to provide that care, they will have to consider personal care with out of pocket cost vs. mcc placement. Discussed changes pt may move through in the dying process including but not limited to sleeping more, disorientation when awake, restlessness, diminished senses/inability to respond to stimulus although ability to be aware of them remains intact longer, changes in body temperatures, skin changes/mottling/cyanosis, respiratory pattern changes, oral secretions. Family verbalized understanding. The goal is to assure a peaceful . Plan Patient is transition to a comfort plan of care. CODE STATUS is reaffirmed his DNR/DNI Comfort care orders have been written. Nonessential and on comfort interventions, orders, labs, medications have been stopped. For now we will continue Keppra but likely will transition him off this to a regimen of regular Ativan as needed for seizure control as we move towards hospice. I will await a formal hospice inpatient evaluation. I have updated the primary team, nursing and care management. Please see their separate notes for additional details. Bibiana Lombardi DNP Clinical Director, Palliative Medicine History of Present Illness Reason for Consultation: " On 04/15/22 @ 13:57 Chucky Mcknight Wrote To Catrina Koenig metastatic Melona AMS" Attending Physician: Chucky Mcknight MD History of Present Illness Mika Calhoun is a 67yo male with met melanoma who presented with seizures, AM, not improving despite treatment/interventions. His PS prior to this admission was already poor with continued decline. Recent oncology notes indicates a concern for this decline with a likely move towards integrating supportive and hospice care. CT brain this admission reported: "Interval enlargement of numerous intracranial masses compatible with enlarging hemorrhagic metastases. Some lesions demonstrate new hemorrhage, others demonstrate interval evolutionary changes of blood products from prior CT." pt is not able to meaningfully interact or answer questions. Radiation Oncology History Development of a skin lesion of the left advent. 01/07/2022. Biopsy of left scalp mass. Fragments of malignant melanoma. Development of headache. 01/23/2022. CT of head/brain with out contrast. Subtle scattered hyperdense foci suspicious for intracranial metastasis consider MRI of the brain with and without contrast for better characterization. Soft tissue density mass in the left frontal parietal scalp. 01/23/2022. Numerous intracranial and extra-axial metastatic lesions. Adenopathy of the left upper neck was also noted. Enhancing lesions in the right parotid gland likely metastatic. 01/24/2022. PET/CT. Large intensely FDG avid left temporal scalp soft tissue lesion. Multiple areas of subtle increased uptake within the liver. Subtle asymmetric increased activity within the left posterior occipital cerebral parenchyma. 01/28/2022. Plan to start Keytruda by Dr. Ness at [facility]. 02/14/2022. Status post completion of whole brain radiation therapy. He received 3000 cGy. Enlarging left neck mass. 02/28/2022. Emergency room evaluation and overnight stay for left facial droop. 02/28/2022. Head CT. Multiple foci of hyperdensity with surrounding vasogenic edema seen in the brain. These are favored to represent hemorrhagic metastasis in a patient with known history of melanoma. 02/28/2022 brain MRI. Findings compatible with extensive known intracranial metastatic disease in this patient with primary melanoma. Hemorrhage of some of the metastasis. There is associated vasogenic edema without evidence of midline shift. 03/01/2022. Patient is discharged on dexamethasone 4 mg twice daily. Facial droop resolved during his admission. Enlarging left neck mass. 03/12/2022. Status post completion of palliative radiation therapy to the left neck mass. He received 2500 cGy utilizing volumetric modulated arc therapy. Allergies Allergy/AdvReac Type Severity Reaction Status Date / Time lovastatin Allergy Unknown CAN'T Verified 04/12/22 19:00 REMEMBER simvastatin Allergy Unknown CAN'T Verified 04/12/22 19:00 REMEMBER prochlorperazine AdvReac Intermediate Nausea Verified 04/12/22 19:00 [From Compazine] Home Medications Medication Instructions Recorded Confirmed Type blood sugar diagnostic (FindMySong #100 ea 02/02/19 04/12/22 Rx Ultra Blue Test Strip) lancets 33 gauge ([employer] Delica #100 ea 02/02/19 04/12/22 Rx Lancets) blood-glucose meter #1 ea 11/14/19 04/12/22 Rx atorvastatin 80 mg tablet 40 mg PO BID 01/07/22 04/12/22 History omeprazole 40 mg capsule,delayed 40 mg PO QAM #30 caps 02/03/22 04/12/22 Rx release ondansetron HCl 8 mg tablet 8 mg PO Q8H PRN nausea and 02/03/22 04/12/22 Rx vomiting #30 tabs memantine 10 mg tablet (Namenda) 10 mg PO BID #60 tabs 02/26/22 04/12/22 Rx coenzyme Q10 100 mg capsule 100 mg PO DAILY 02/28/22 04/12/22 History (CoQ-10) gabapentin 100 mg capsule 100 mg PO BID 02/28/22 04/12/22 History glimepiride 1 mg tablet 1 mg PO DAILY #30 tabs 03/04/22 04/12/22 Rx allopurinol 100 mg tablet 100 mg PO BID #180 tabs 03/28/22 04/12/22 Rx metformin 1,000 mg tablet 1,000 mg PO BID #180 tabs 03/31/22 04/12/22 Rx metoprolol succinate 50 mg 50 mg PO DAILY #30 tabs 03/31/22 04/12/22 Rx tablet,extended release 24 hr docusate sodium 100 mg capsule 100 mg PO TID PRN Constipation 04/07/22 04/12/22 History polyethylene glycol 3350 17 gram 17 g PO DAILY PRN Constipation 04/07/22 04/12/22 History oral powder packet (Miralax) cholecalciferol (vitamin D3) 50 50 mcg PO DAILY 04/12/22 04/12/22 History mcg (2,000 unit) tablet (Vitamin D3) dexamethasone 2 mg tablet 2 mg PO BID 04/12/22 04/12/22 History magnesium oxide 500 mg tablet 500 mg PO BID 04/12/22 04/12/22 History memantine 10 mg tablet 10 mg PO BID 04/12/22 04/12/22 History Patient History Medical History (Updated 04/15/22 @ 16:08 by Bibiana Lombardi DNP) Amputated toe Right and Left Amputated toe of left foot Anemia Benign essential hypertension BPPV (benign paroxysmal positional vertigo) Changing skin lesion Controlled diabetes mellitus with diabetic neuropathy, without long-term current use of insulin Cough COVID-19 virus infection Diabetic peripheral neuropathy associated with type 2 diabetes mellitus Discussion about advance care planning held with family member Diverticulitis Encounter for hospice care discussion GERD (gastroesophageal reflux disease) Gout History of arteriography Hypercholesterolemia Hypophosphatasia Lightheadedness Melanoma metastatic to brain Metastatic melanoma Nausea Osteoporosis Palliative care encounter Palpable mass of neck Palpable mass of neck Recurrent cellulitis of lower leg Ulcer of left lower leg recently healed through wound clinic (01/2020) Surgical History H/O excision of mass (01/07/22) Incisional Biopsy Left Scalp Mass(Left) - Severo Greenwood DO History of appendectomy History of colonoscopy History of inguinal hernia repair (as a child) History of open reduction and internal fixation (ORIF) procedure Right Leg S/P hardware removal Right Leg Family History Father Colorectal cancer Mother Stroke Brother No problems noted. Brother No problems noted. Brother No problems noted. Uncle Lung cancer Other No family history of adverse response to anesthesia No pertinent family history Social History Smoking Status: Unknown if ever smoked packs per day: 0.5; Second Hand Exposure: No; Hx Substance Use: No Preferred Language: Indonesian Communication Ability: Unable Visual Impairment: Limited Hearing Ability: Normal Cannon Crewmember Required: No Beliefs That Will Affect Care: None marital status: Current Living Situation: Spouse current occupational status: employed current occupation: works in [employer] How many Children do You have: 2 Feels Safe at Home: Declines to Answer and Hesitant to Answer Childhood Exposure to Second-Hand Smoke: No during the past year weight has: remained stable Seatbelt Use: always Assistive Devices: None Review of Systems Review of Systems: Unobtainable due to cognitive status and Unobtainable due to reduced consciousness Physical Exam Constitutional: + ill appearing, + altered mental status and + frail appearing Eyes: reactive pupils ENMT: Mouth: + dry oral mucous membranes and + poor dentition Respiratory: normal respiratory effort (diminished) Cardiovascular: RRR, no murmur, no edema Gastrointestinal (Abdomen): normal bowel sounds, soft, nontender, no hepatosplenomegaly Musculoskeletal: generalized weakness Skin: pale, cool Neurologic: Speech / Cognition: + abnormal cognition tired, unable to follow commands, eyes open to verbal but do not stay open or focu, quickly drifts back Results & Data ([facility]) Vital Signs (Past 12 Hours) Vital Signs Temp Pulse Pulse Resp BP BP Pulse Ox 04/15/22 11:50 68 04/15/22 11:47 37 C 76 14 136/80 95 04/15/22 08:30 37.0 C 85 19 152/102 H 97 04/15/22 06:21 83 148/96 H 04/15/22 06:20 83 148/96 H 04/15/22 02:42 36.7 C 96 H 18 149/97 H 96 O2 Del Method 04/15/22 11:50 04/15/22 11:47 Room Air 04/15/22 08:30 Room Air 04/15/22 06:21 04/15/22 06:20 04/15/22 02:42 Room Air Diagnostic Findings CT brain this admission reported: "Interval enlargement of numerous intracranial masses compatible with enlarging hemorrhagic metastases. Some lesions demonstrate new hemorrhage, others demonstrate interval evolutionary changes of blood products from prior CT." PG Care Time/CCT Total # of Minutes Spent Total Time Spent: 100 Total Time Spent with Patient: Total time spent is greater than 50% in coordination of care (as documented) at patient's floor/unit and/or counseling patient: I spent 100 minutes overall addressing this very complex case: 15 in medical data review/discussion with referring provider(s) and/or preparation for the visit/primary team direct face to face discussion on the unit 15 in direct interaction with the patient and 40 min with daughter for face to face ACP 40 Advance Care Planning/Goals of Care discussions as detailed above in note (must be >16min) 15 in subsequent review and synthesis of assessment and plan 15 in communicating with other providers regarding the patient's case: primary team, nursing, CM, oncology/Dr Fraser notified by me Prolonged Care Time Prolonged Care Time: Yes Advanced Care Planning 98787 Advanced Care Planning 30 [place] [address] Inpt Consult Level 5 Patient Type New History Detailed Exam Comprehensive Medical Decision Making High Complexity Diagnoses Palliative care encounter Z51.5 Discussion about advance care planning held with family member Z71.0 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
[2022-04-15] MEDS ORDERED: LORazepam 2 MG/1 ML VIAL IV PRN ×2 (15:51→15:58)
--- NOTE | 2022-04-15 16:12 | Electroencephalogram ---
EEG Procedure Note Date of Service April 15, 2022 Start / End Times Start Time: 728 End Time: 748 Referring Physician brittani History Patient with known brain metastasis, now with decline in function and gaze preference. Home Medication List Medication Instructions Recorded Confirmed Type blood sugar diagnostic (OneTouch #100 ea 02/02/19 04/12/22 Rx Ultra Blue Test Strip) lancets 33 gauge (OneTouch Delica #100 ea 02/02/19 04/12/22 Rx Lancets) blood-glucose meter #1 ea 11/14/19 04/12/22 Rx atorvastatin 80 mg tablet 40 mg PO BID 01/07/22 04/12/22 History omeprazole 40 mg capsule,delayed 40 mg PO QAM #30 caps 02/03/22 04/12/22 Rx release ondansetron HCl 8 mg tablet 8 mg PO Q8H PRN nausea and 02/03/22 04/12/22 Rx vomiting #30 tabs memantine 10 mg tablet (Namenda) 10 mg PO BID #60 tabs 02/26/22 04/12/22 Rx coenzyme Q10 100 mg capsule 100 mg PO DAILY 02/28/22 04/12/22 History (CoQ-10) gabapentin 100 mg capsule 100 mg PO BID 02/28/22 04/12/22 History glimepiride 1 mg tablet 1 mg PO DAILY #30 tabs 03/04/22 04/12/22 Rx allopurinol 100 mg tablet 100 mg PO BID #180 tabs 03/28/22 04/12/22 Rx metformin 1,000 mg tablet 1,000 mg PO BID #180 tabs 03/31/22 04/12/22 Rx metoprolol succinate 50 mg 50 mg PO DAILY #30 tabs 03/31/22 04/12/22 Rx tablet,extended release 24 hr docusate sodium 100 mg capsule 100 mg PO TID PRN Constipation 04/07/22 04/12/22 History polyethylene glycol 3350 17 gram 17 g PO DAILY PRN Constipation 04/07/22 04/12/22 History oral powder packet (Miralax) cholecalciferol (vitamin D3) 50 50 mcg PO DAILY 04/12/22 04/12/22 History mcg (2,000 unit) tablet (Vitamin D3) dexamethasone 2 mg tablet 2 mg PO BID 04/12/22 04/12/22 History magnesium oxide 500 mg tablet 500 mg PO BID 04/12/22 04/12/22 History memantine 10 mg tablet 10 mg PO BID 04/12/22 04/12/22 History Inpatient Medication List Dexamethasone 4 mg/ Syringe 1 mls @ 1 mls/min IV Q6H IVA Stop: 05/13/22 15:59 Last Admin: 04/15/22 16:00 Dose: 1 mls/min Documented By: Admin: 04/15/22 09:18 Dose: 1 mls/min Documented By: Admin: 04/15/22 04:23 Dose: 1 mls/min Documented By: Admin: 04/14/22 22:35 Dose: 1 mls/min Documented By: Admin: 04/14/22 16:09 Dose: 1 mls/min Documented By: Admin: 04/14/22 08:31 Dose: 1 mls/min Documented By: Admin: 04/14/22 04:02 Dose: 1 mls/min Documented By: Admin: 04/13/22 21:56 Dose: 1 mls/min Documented By: Admin: 04/13/22 15:01 Dose: 1 mls/min Documented By: CIERA Dextrose/Sodium Chloride (D5w And Nss) 1,000 mls @ 50 mls/hr IV .Q20H IVA Stop: 05/13/22 13:59 Last Admin: 04/15/22 06:25 Dose: 75 mls/hr Documented By: Infusion: 04/15/22 06:20 Dose: 0 mls/hr Documented By: Admin: 04/14/22 16:09 Dose: 75 mls/hr Documented By: Infusion: 04/14/22 15:14 Dose: 75 mls/hr Documented By: Admin: 04/14/22 01:54 Dose: 75 mls/hr Documented By: Infusion: 04/14/22 01:54 Dose: 0 mls/hr Documented By: Admin: 04/13/22 14:59 Dose: 75 mls/hr Documented By: CIERA Levetiracetam 1,000 mg/ Sodium (Chloride) 110 mls @ 440 mls/hr IV Q12H IVA Stop: 05/13/22 14:29 Last Infusion: 04/15/22 14:21 Dose: 0 mls/hr Documented By: Admin: 04/15/22 14:00 Dose: 440 mls/hr Documented By: Infusion: 04/15/22 03:05 Dose: 0 mls/hr Documented By: Admin: 04/15/22 02:41 Dose: 440 mls/hr Documented By: Infusion: 04/14/22 16:24 Dose: 0 mls/hr Documented By: Admin: 04/14/22 16:08 Dose: 440 mls/hr Documented By: Infusion: 04/14/22 03:20 Dose: 0 mls/hr Documented By: Admin: 04/14/22 02:57 Dose: 440 mls/hr Documented By: Infusion: 04/13/22 15:16 Dose: 0 mls/hr Documented By: Admin: 04/13/22 15:01 Dose: 440 mls/hr Documented By: CIERA Lorazepam (Lorazepam 2 Mg/1 Ml Vial) 2 mg IV Q6H PRN PRN Reason: seizure Stop: 05/12/22 21:42 Last Admin: 04/13/22 18:49 Dose: 2 mg Documented By: CIERA Metoprolol Tartrate (Metoprolol Tartrate 1 Mg/Ml Vial) 10 mg IV Q6 IVA Stop: 05/13/22 17:59 Last Admin: 04/15/22 11:50 Dose: 10 mg Documented By: Admin: 04/15/22 06:21 Dose: 10 mg Documented By: Admin: 04/15/22 00:00 Dose: 10 mg Documented By: Admin: 04/14/22 17:28 Dose: 10 mg Documented By: Admin: 04/14/22 12:09 Dose: 10 mg Documented By: Admin: 04/14/22 06:08 Dose: 10 mg Documented By: Admin: 04/13/22 23:46 Dose: 10 mg Documented By: Admin: 04/13/22 18:39 Dose: 10 mg Documented By: CIERA Polyethylene Glycol (Polyethylene (Miralax) 17 Gm Pack) 17 gm PO DAILY IVA Stop: 05/13/22 08:59 Last Admin: 04/15/22 09:17 Dose: Not Given Documented By: Admin: 04/14/22 08:30 Dose: Not Given Documented By: Admin: 04/13/22 09:47 Dose: Not Given Documented By: CIERA Discontinued Medications Dexamethasone Sodium Phosphate (DexamethasonePf 10 Mg/Ml Vial) 10 mg IV NOW ONE Stop: 04/12/22 16:31 Last Admin: 04/12/22 16:34 Dose: 10 mg Documented By: MERON Hydralazine HCl (Hydralazine Hcl 20 Mg/Ml Vial) 10 mg IV Q8 PRN PRN Reason: sbp>185 or dbp>95 Stop: 05/12/22 21:42 Last Admin: 04/13/22 03:49 Dose: 10 mg Documented By: ALLEGRA Hydromorphone HCl (Hydromorphone Inj 0.5 Mg/0.5 Ml Syr) 0.25 mg IV NOW STA Stop: 04/13/22 06:06 Last Admin: 04/13/22 06:19 Dose: 0.25 mg Documented By: ALLEGRA Levetiracetam 2,000 mg/ Sodium (Chloride) 270 mls @ 999 mls/hr IV NOW STA Stop: 04/12/22 16:46 Last Infusion: 04/12/22 17:30 Dose: 0 mls/hr Documented By: Admin: 04/12/22 17:03 Dose: 999 mls/hr Documented By: MERON Levetiracetam 500 mg/ Sodium (Chloride) 105 mls @ 440 mls/hr IV Q12H IVA Stop: 05/13/22 05:59 Last Infusion: 04/13/22 06:42 Dose: 0 mls/hr Documented By: Admin: 04/13/22 06:22 Dose: 440 mls/hr Documented By: ALLEGRA Dexamethasone 4 mg/ Syringe 1 mls @ 1 mls/min IV ONE ONE Stop: 04/12/22 22:01 Last Admin: 04/12/22 22:23 Dose: 1 mls/min Documented By: ALLEGRA Dexamethasone 6 mg/ Syringe 1.5 mls @ 1 mls/min IV Q12H IVA Stop: 05/13/22 08:59 Last Admin: 04/13/22 09:57 Dose: 1 mls/min Documented By: CIERA Sodium Chloride (Nss 1000ml) 1,000 mls @ 100 mls/hr IV .Q10H VIA Stop: 05/12/22 21:42 Last Infusion: 04/13/22 14:55 Dose: 0 mls/hr Documented By: Admin: 04/13/22 06:07 Dose: 100 mls/hr Documented By: Infusion: 04/13/22 06:07 Dose: 100 mls/hr Documented By: Admin: 04/12/22 22:29 Dose: 100 mls/hr Documented By: ALLEGRA Magnesium Sulfate/Dextrose (Magnesium Sulfate / D5w) 1 gm in 100 mls @ 50 mls/hr IV Q2H IVA Stop: 04/13/22 05:42 Last Infusion: 04/13/22 06:04 Dose: 0 mls/hr Documented By: Admin: 04/13/22 03:48 Dose: 50 mls/hr Documented By: Infusion: 04/13/22 03:48 Dose: 50 mls/hr Documented By: Admin: 04/13/22 02:15 Dose: 50 mls/hr Documented By: Infusion: 04/13/22 02:02 Dose: 50 mls/hr Documented By: Admin: 04/13/22 00:02 Dose: 50 mls/hr Documented By: GGG(2) Infusion: 04/13/22 00:01 Dose: 0 mls/hr Documented By: GGG(2) Admin: 04/12/22 22:32 Dose: 50 mls/hr Documented By: ALLEGRA Vancomycin HCl 2,000 mg/ (Sodium Chloride) 540 mls @ 200 mls/hr IV NOW STA; Protocol Stop: 04/14/22 14:32 Last Infusion: 04/14/22 16:13 Dose: 0 mls/hr Documented By: Admin: 04/14/22 12:08 Dose: 200 mls/hr Documented By: ANNABELLE Vancomycin HCl 1,250 mg/ (Sodium Chloride) 275 mls @ 200 mls/hr IV Q12H IVA; Protocol Stop: 04/28/22 21:59 Last Infusion: 04/15/22 11:23 Dose: 0 mls/hr Documented By: Admin: 04/15/22 09:18 Dose: 200 mls/hr Documented By: Infusion: 04/15/22 00:09 Dose: 0 mls/hr Documented By: Admin: 04/14/22 22:40 Dose: 200 mls/hr Documented By: HILL Insulin Aspart (Insulin Aspart Per Unit) 0 units SC Q6 IVA Stop: 05/13/22 00:00 Last Admin: 04/15/22 11:55 Dose: 2 units Documented By: ANNABELLE Co-signed By: ZHANNA Admin: 04/15/22 06:26 Dose: 1 units Documented By: HILL Co-signed By: MERON(2) Admin: 04/15/22 00:07 Dose: 1 units Documented By: HILL Co-signed By: MERON(2) Admin: 04/14/22 17:37 Dose: 1 units Documented By: ANNABELLE Co-signed By: ESTEFANÍA Admin: 04/14/22 12:08 Dose: 2 units Documented By: ANNABELLE Co-signed By: ESTEFANÍA Admin: 04/14/22 06:00 Dose: 2 units Documented By: HILL Co-signed By: MERON(2) Admin: 04/13/22 23:44 Dose: 3 units Documented By: HILL Co-signed By: LYNDA Admin: 04/13/22 18:38 Dose: 3 units Documented By: CIERA Co-signed By: ESTEFANÍA Admin: 04/13/22 13:09 Dose: 2 units Documented By: CIERA Co-signed By: JULIANNE Admin: 04/13/22 06:07 Dose: 3 units Documented By: ALLEGRA Co-signed By: MERON(2) Admin: 04/12/22 23:13 Dose: 3 units Documented By: ALLEGRA Co-signed By: OLEKSANDR Insulin Glargine (Lantus Per Unit Charge) 5 units SQ BID [facility] Stop: 05/12/22 21:42 Last Admin: 04/13/22 09:57 Dose: 5 units Documented By: CIERA Co-signed By: ESTEFANÍA Admin: 04/12/22 23:13 Dose: 5 units Documented By: ALLEGRA Co-signed By: OLEKSANDR Insulin Glargine (Lantus Per Unit Charge) 20 units SQ QD@08 [facility] Stop: 05/13/22 13:59 Last Admin: 04/15/22 09:17 Dose: 20 units Documented By: ANNABELLE Co-signed By: YOSELYN Admin: 04/14/22 08:33 Dose: 20 units Documented By: ANNABELLE Co-signed By: ESTEFANÍA Admin: 04/13/22 15:05 Dose: 20 units Documented By: CIERA Co-signed By: YOSELYN Metoprolol Tartrate (Metoprolol Tartrate 1 Mg/Ml Vial) 5 mg IV Q4H IVA Stop: 05/12/22 21:59 Last Admin: 04/13/22 13:44 Dose: 5 mg Documented By: Admin: 04/13/22 09:57 Dose: 5 mg Documented By: Admin: 04/13/22 06:07 Dose: 5 mg Documented By: Admin: 04/13/22 02:31 Dose: 5 mg Documented By: Admin: 04/12/22 22:23 Dose: 5 mg Documented By: EL Morphine Sulfate (Morphine Sulfate 2 Mg/Ml Carp) 2 mg IV Q4H PRN PRN Reason: Pain Stop: 04/27/22 17:58 Last Admin: 04/13/22 18:41 Dose: 2 mg Documented By: CIERA Description This is a 21 electrode EEG with a single channel dedicated to limited EKG. The electrodes were placed in accordance with the International 10-20 system. Significant muscle artifact contaminates large parts of the recording, precluding accurate interpretation and places. The cortical background appears to be an irregular mixture of mainly theta frequencies, without a predominant frequency. Occasional triphasic transients are present. The background appears symmetric for the most part. Later in the recording, when the patient is more relaxed, the background appears to include intermittent low amplitude sharp waves occurring periodically every 1 to 2 seconds, seen just in the left hemisphere. No sleep transients are seen. Hyperventilation not performed. Photic stimulation without significant photic driving. Interpretation Abnormal EEG due to diffuse persistent slowing, and intermittent somewhat periodic sharp activity from the left hemisphere. No definite seizures are recorded, but the recording could reflect underlying seizure tendency or structural abnormality in the left hemisphere. Please correlate clinically.
--- NOTE | 2022-04-15 16:49 | Neurology Progress Note ---
Date of Service April 15, 2022 Assessment & Plan (1) Acute alteration in mental status: Plan: Patient presented with sudden decline in neurologic function, possible seizure emanating from the left hemisphere. EEG today shows intermittent somewhat periodic sharp activity from the left hemisphere, but no sustained seizure. Clinically he is somewhat improved, opens eyes with stimulation now and has voluntary saccades. However he is still not verbal. Will leave open the option that he is initial presentation represented seizure, or at the very least is at risk for seizure, will continue Keppra 1000 mg twice daily. Review of palliative care note suggest patient is being transferred to comfort care. We will hold off doing anything further if that is the case. We will follow peripherally. Please call for any questions. Admission and Anticipated Discharge Date Admission Date: April 12, 2022 Subjective Patient can provide no history. Review of Systems Review of Systems: Unobtainable. Physical Exam Physical Exam: Sleeping soundly on his right side. When I call his name, he does open his eyes and look straight ahead, but does not make eye contact reliably. He will sometimes look slightly left of midline but prefers to look to the right. He did reposition himself at one time. He groans sleepily at times. Does not cooperate with exam. No adventitious movements seen. Results & Data ([facility]) Vital Signs (Past 12 Hours) Vital Signs Temp Pulse Pulse Resp BP BP Pulse Ox 04/15/22 15:07 37.0 C 78 20 160/100 H 95 04/15/22 11:50 68 04/15/22 11:47 37 C 76 14 136/80 95 04/15/22 08:30 37.0 C 85 19 152/102 H 97 04/15/22 06:21 83 148/96 H 04/15/22 06:20 83 148/96 H O2 Del Method 04/15/22 15:07 Room Air 04/15/22 11:50 04/15/22 11:47 Room Air 04/15/22 08:30 Room Air 04/15/22 06:21 04/15/22 06:20
--- NOTE | 2022-04-15 18:57 | Hospitalist Progress Note ---
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 Patient be maintained on dexamethasone and Keppra, he has completed whole brain irradiation and neck radiation he does see palliative care as an outpatient. I spoke to his daughter, who is his primary caregiver she feels that she wishes for us to support him to see if this is seizure related but if he does not wake up likely progress towards comfort care. I instructed him to discuss if he does not wake up their thoughts and feelings about hydration nutrition etc. -Pending neurology consult, Patient is still encephalopathic Increase the dose of Decadron to 4 mg every 6 hours 04/14 -Some mild improvement in mental status, continue Keppra, continue current dose of Decadron, awaiting for EEG, follow no neurology 04/15 some mild improvement in his consciousness, but does not follow simple commands, prognosis overall poor, discussed with palliative care, patient is a hospice candidate, waiting for hospice arrangement, patient is qualified for inpatient hospice, EKG is not diagnostic for epileptogenic foci, as per neurology recommend continue Keppra, continue with IV fluid , continue Decadron (2) Diabetes mellitus: Plan: Fairly controlled with the current regimen (3) Benign essential hypertension: Plan: Uncontrolled, add clonidine patch Admission and Anticipated Discharge Date Admission Date: April 12, 2022 Physical Exam Constitutional: + ill appearing, + altered mental status and + frail appearing Eyes: reactive pupils ENMT: Mouth: + dry oral mucous membranes and + poor dentition Respiratory: normal respiratory effort (diminished) Cardiovascular: RRR, no murmur, no edema Gastrointestinal (Abdomen): normal bowel sounds, soft, nontender, no hepatosplenomegaly Neurologic: Speech / Cognition: + abnormal cognition Results & Data Results & Data ([facility]) Vital Signs (Past 12 Hours) Vital Signs Temp Pulse Pulse Resp BP Pulse Ox O2 Del Method 04/15/22 15:07 37.0 C 78 20 160/100 H 95 Room Air 04/15/22 11:50 68 04/15/22 11:47 37 C 76 14 136/80 95 Room Air 04/15/22 08:30 37.0 C 85 19 152/102 H 97 Room Air PG Care Time/CCT Total # of Minutes Spent Total Time Spent with Patient: Total time spent is greater than 50% in coordination of care (as documented) at patient's floor/unit and/or counseling patient: Coding Level of Care Code 03644 Subseq Hosp Care Lvl 3 Diagnoses 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
[2022-04-15] MEDS ORDERED: cloNIDine HCL 0.3 MG/24 HR TRANSDERM SYS TD SCH (19:00)
[2022-04-15] MEDS: CHECK CLONIDINE PATCH PLACEMENT SCH (23:42)
[2022-04-16] MEDS: levETIRAcetam 1,000 MG in 0.9 % SODIUM CHLORIDE 100 ML IV SCH ×2 (02:46→15:57)
[2022-04-16] MEDS: dexAMETHasone 4 MG in SYRINGE 0 ML IV SCH ×3 (04:43→15:57)
[2022-04-16] MEDS: METOPROLOL TARTRATE 1 MG/ML VIAL IV SCH ×3 (06:42→19:30)
[2022-04-16] MEDS ORDERED: VANCOMYCIN LEVEL ONE (07:30)
[2022-04-16] MEDS: CHECK CLONIDINE PATCH PLACEMENT SCH ×3 (08:00→23:43)
--- NOTE | 2022-04-16 10:50 | Palliative Care Progress Note ---
Date of Service April 16, 2022 Assessment & Plan (1) Palliative care encounter: Plan: continues on comfort care. family chose [facility] but they have not come to eval him for GIP yet. 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 Pt is not taking any PO. Stop telemetry, transfer to med surg/private room Await [facility] GIP eval CM assisting with placement I have discussed case and updated primary team, nursing and CM. Bibiana Lombardi DNP Clinical Director, Palliative Medicine Admission and Anticipated Discharge Date Admission Date: April 12, 2022 Subjective pt on comfort care asleep, does not respond to voice or tactile stimulus no family present at time of my eval chart and MAR reviewed. no seizure activity, nursing reports mild episode of agitation with repositioning earlier today. Awaiting GIP eval, family chose [facility]. Review of Systems Review of Systems: Unobtainable due to cognitive status and Unobtainable due to reduced consciousness Physical Exam Constitutional: + ill appearing, + altered mental status and + frail appearing Eyes: reactive pupils ENMT: Mouth: + dry oral mucous membranes and + poor dentition Respiratory: normal respiratory effort (diminished) Cardiovascular: RRR, no murmur, no edema Gastrointestinal (Abdomen): normal bowel sounds, soft, nontender, no hepatosplenomegaly Musculoskeletal: generalized weakness Skin: pale, cool Neurologic: + obtunded unable to follow commands Results & Data ([facility]) Vital Signs (Past 12 Hours) Vital Signs Pulse Pulse BP BP 04/16/22 06:42 83 157/104 H 04/15/22 23:43 91 H 133/82 04/15/22 23:42 91 H 133/82 Laboratory Results no new labs/imaging, pt on comfort care PG Care Time/CCT Total # of Minutes Spent Total Time Spent: 61 Total Time Spent with Patient: Total time spent is greater than 50% in coordination of care (as documented) at patient's floor/unit and/or counseling patient: Prolonged Care Time Prolonged Care Time: Yes Coding [place] [address] Subseq Hosp Care Lvl 3 Patient Type Established History Expanded Problem Focused Exam Comprehensive Medical Decision Making High Complexity Diagnoses Palliative care encounter Z51.5 Encounter for hospice care discussion Z71.89 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
[2022-04-16] MEDS: POLYETHYLENE (MIRALAX) 17 GM PACK PO SCH (11:55)
--- NOTE | 2022-04-16 18:14 | Hospitalist Progress Note ---
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 Patient be maintained on dexamethasone and Keppra, he has completed whole brain irradiation and neck radiation he does see palliative care as an outpatient. I spoke to his daughter, who is his primary caregiver she feels that she wishes for us to support him to see if this is seizure related but if he does not wake up likely progress towards comfort care. I instructed him to discuss if he does not wake up their thoughts and feelings about hydration nutrition etc. -Pending neurology consult, Patient is still encephalopathic Increase the dose of Decadron to 4 mg every 6 hours 04/14 -Some mild improvement in mental status, continue Keppra, continue current dose of Decadron, awaiting for EEG, follow no neurology 04/15 some mild improvement in his consciousness, but does not follow simple commands, prognosis overall poor, discussed with palliative care, patient is a hospice candidate, waiting for hospice arrangement, patient is qualified for inpatient hospice, EKG is not diagnostic for epileptogenic foci, as per neurology recommend continue Keppra, continue with IV fluid , continue Decadron (2) Diabetes mellitus: Plan: Fairly controlled with the current regimen (3) Benign essential hypertension: Plan: Uncontrolled, add clonidine patch Admission and Anticipated Discharge Date Admission Date: April 12, 2022 Subjective pt on comfort care, no significant improvement in his mental status Physical Exam Constitutional: + ill appearing, + altered mental status and + frail appearing Eyes: reactive pupils ENMT: Mouth: + dry oral mucous membranes and + poor dentition Respiratory: normal respiratory effort (diminished) Cardiovascular: RRR, no murmur, no edema Gastrointestinal (Abdomen): normal bowel sounds, soft, nontender, no hepatosplenomegaly Neurologic: Speech / Cognition: + abnormal cognition Results & Data Results & Data ([facility]) Vital Signs (Past 12 Hours) Vital Signs Pulse BP 04/16/22 12:31 78 146/92 H 04/16/22 06:42 83 157/104 H PG Care Time/CCT Total # of Minutes Spent Total Time Spent with Patient: Total time spent is greater than 50% in coordination of care (as documented) at patient's floor/unit and/or counseling patient: Coding Level of Care Code 10456 Subseq Hosp Care Lvl 2 Diagnoses 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
[2022-04-16] MEDS: dexAMETHasone 2 MG in SYRINGE 0 ML IV SCH (21:30)
[2022-04-17] MEDS: levETIRAcetam 1,000 MG in 0.9 % SODIUM CHLORIDE 100 ML IV SCH (02:00)
[2022-04-17] MEDS: MoRPHine SULFATE 2 MG/ML CARP IV PRN ×2 (02:05→20:51)
[2022-04-17] MEDS: dexAMETHasone 2 MG in SYRINGE 0 ML IV SCH ×2 (03:38→08:59)
[2022-04-17 03:51] VITALS: BP 148/100; PULSE 97; TEMP 98.6; O2SAT 95
[2022-04-17] MEDS: CHECK CLONIDINE PATCH PLACEMENT SCH ×3 (07:54→23:58)
--- NOTE | 2022-04-17 10:43 | Palliative Care Progress Note ---
Date of Service April 17, 2022 Assessment & Plan (1) Palliative care encounter: Plan: continues on comfort care. waiting for GIP eval, family chose [facility] hosp[facility] but they have not come to eval him as yet. He remains seizure free, so we will begin a transition off keppra: Ativan 0.1mg/kg IV for EOL Seizure prophylaxis = Ativan 2mg IV q6h; the long half life of Ativan makes this the preferred medication. 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 Pt is not taking any PO. Orders written Await [facility] GIP eval CM assisting with placement I have discussed case and updated primary team, nursing and CM. Bibiana Lombardi DNP Clinical Director, Palliative Medicine Admission and Anticipated Discharge Date Admission Date: April 12, 2022 Subjective on comfort care, awaiting hospice eval resting peacefully, occ furrowing of brow breathing even, no apnea noted does not arouse to vocal or tactile for me this morning Review of Systems Review of Systems: Unobtainable due to cognitive status Physical Exam Constitutional: + ill appearing, + altered mental status, + frail appearing, + cushingoid and + lethargic Eyes: reactive pupils ENMT: Mouth: + dry oral mucous membranes and + poor dentition Respiratory: normal respiratory effort (diminished) Cardiovascular: RRR, no murmur, no edema Gastrointestinal (Abdomen): normal bowel sounds, soft, nontender, no hepatosplenomegaly Musculoskeletal: generalized weakness Skin: pale, cool; multiple scatt ecchymoses Neurologic: + obtunded unable to follow commands Results & Data ([facility]) Vital Signs (Past 12 Hours) Vital Signs O2 Del Method 04/16/22 23:45 Room Air PG Care Time/CCT Total # of Minutes Spent Total Time Spent: 58 Total Time Spent with Patient: Total time spent is greater than 50% in coordination of care (as documented) at patient's floor/unit and/or counseling patient: Coding [place] [address] Subseq Hosp Care Lvl 3 Patient Type Established History Detailed Exam Detailed Medical Decision Making High Complexity Diagnoses Palliative care encounter Z51.5 Encounter for hospice care discussion Z71.89 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
[2022-04-17] MEDS: LORazepam 2 MG/1 ML VIAL IV SCH ×3 (11:12→22:29)
--- NOTE | 2022-04-17 17:44 | Neurology Progress Note ---
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 Nothing further to add from a neurologic standpoint. We will sign off. Please reconsult for any questions. Admission and Anticipated Discharge Date Admission Date: April 12, 2022
--- NOTE | 2022-04-17 18:23 | Hospitalist Progress Note ---
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 Patient be maintained on dexamethasone and Keppra, he has completed whole brain irradiation and neck radiation he does see palliative care as an outpatient. I spoke to his daughter, who is his primary caregiver she feels that she wishes for us to support him to see if this is seizure related but if he does not wake up likely progress towards comfort care. I instructed him to discuss if he does not wake up their thoughts and feelings about hydration nutrition etc. -Pending neurology consult, Patient is still encephalopathic Increase the dose of Decadron to 4 mg every 6 hours 04/14 -Some mild improvement in mental status, continue Keppra, continue current dose of Decadron, awaiting for EEG, follow no neurology 04/15 some mild improvement in his consciousness, but does not follow simple commands, prognosis overall poor, discussed with palliative care, patient is a hospice candidate, waiting for hospice arrangement, patient is qualified for inpatient hospice, EKG is not diagnostic for epileptogenic foci, as per neurology recommend continue Keppra, continue with IV fluid , continue Decadron 04/17 -He is more encephalopathic today, IV fluid has been discontinued, Keppra has been (2) Diabetes mellitus: Plan: Serum glucose has not been monitored at this point (3) Benign essential hypertension: Plan: Uncontrolled, add clonidine patch Admission and Anticipated Discharge Date Admission Date: April 12, 2022 Subjective on comfort care, awaiting hospice evaluation, IV fluids discontinued by hospice, all meds are discontinued, patient is currently on only comfort Physical Exam Constitutional: + ill appearing, + altered mental status and + frail appearing Eyes: reactive pupils ENMT: Mouth: + dry oral mucous membranes and + poor dentition Respiratory: normal respiratory effort (diminished) Cardiovascular: RRR, no murmur, no edema Gastrointestinal (Abdomen): normal bowel sounds, soft, nontender, no hepatosplenomegaly Neurologic: Speech / Cognition: + abnormal cognition PG Care Time/CCT Total # of Minutes Spent Total Time Spent with Patient: Total time spent is greater than 50% in coordination of care (as documented) at patient's floor/unit and/or counseling patient: Coding Level of Care Code 74649 Subseq Hosp Care Lvl 1 Diagnoses 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
[2022-04-17] MEDS: GLYCOPYRROLATE 0.2 MG/ML VIAL IV PRN (23:59)
[2022-04-18] MEDS: LORazepam 2 MG/1 ML VIAL IV SCH ×4 (04:38→23:10)
[2022-04-18] MEDS: CHECK CLONIDINE PATCH PLACEMENT SCH ×2 (07:36→16:55)
--- NOTE | 2022-04-18 12:22 | Palliative Care Progress Note ---
Date of Service April 18, 2022 Assessment & Plan (1) Palliative care encounter: Plan: continues on comfort care. waiting for GIP eval, family chose [facility] but they have not come to eval him as yet. 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 seeking placement Bibiana Lombardi DNP Clinical Director, Palliative Medicine Admission and Anticipated Discharge Date Admission Date: April 12, 2022 Subjective comfort care, no acute issues, tolerating plan of care Patient remains noninteractive and lethargic. He is occasionally grimacing especially with care repositioning. He is not taking any p.o. His eyes do not open to verbal or tactile. Review of Systems Review of Systems: Unobtainable due to cognitive status Physical Exam Physical Exam: Overall exam is unchanged from previous. He is unresponsive and resting in bed comfortably. Occasional grimacing noted. There is some abdominal breathing appreciated. I do not see any apnea at this time. Skin remains pale but warm to touch. PG Care Time/CCT Total # of Minutes Spent Total Time Spent: 30 Total Time Spent with Patient: Total time spent is greater than 50% in coordination of care (as documented) at patient's floor/unit and/or counseling patient: Prolonged Care Time Prolonged Care Time: No Critical Care Time: No Critical Care Time Critical Care Time: No Coding [place] [address] Subseq Hosp Care Lvl 2 Patient Type Established History Expanded Problem Focused Exam Expanded Problem Focused Medical Decision Making Moderate Complexity Diagnoses Palliative care encounter Z51.5 Encounter for hospice care discussion Z71.89 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
--- NOTE | 2022-04-18 19:24 | Hospitalist Progress Note ---
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 Patient be maintained on dexamethasone and Keppra, he has completed whole brain irradiation and neck radiation he does see palliative care as an outpatient. I spoke to his daughter, who is his primary caregiver she feels that she wishes for us to support him to see if this is seizure related but if he does not wake up likely progress towards comfort care. I instructed him to discuss if he does not wake up their thoughts and feelings about hydration nutrition etc. -Pending neurology consult, Patient is still encephalopathic Increase the dose of Decadron to 4 mg every 6 hours 04/14 -Some mild improvement in mental status, continue Keppra, continue current dose of Decadron, awaiting for EEG, follow no neurology 04/15 some mild improvement in his consciousness, but does not follow simple commands, prognosis overall poor, discussed with palliative care, patient is a hospice candidate, waiting for hospice arrangement, patient is qualified for inpatient hospice, EKG is not diagnostic for epileptogenic foci, as per neurology recommend continue Keppra, continue with IV fluid , continue Decadron 04/17 -He is more encephalopathic today, IV fluid has been discontinued, Keppra has been 04/18 The patient examined today, expect his demise within 24 to 48 hours (2) Diabetes mellitus: Plan: Serum glucose has not been monitored at this point (3) Benign essential hypertension: Plan: Uncontrolled, add clonidine patch Admission and Anticipated Discharge Date Admission Date: April 12, 2022 Subjective comfort care, no acute issues, tolerating plan of care Patient remains noninteractive and lethargic. He is occasionally grimacing especially with care repositioning. He is not taking any p.o. His eyes do not open to verbal or tactile. Physical Exam Physical Exam: Overall exam is unchanged from previous. He is unresponsive and resting in bed comfortably. Occasional grimacing noted. There is some abdominal breathing appreciated. I do not see any apnea at this time. Skin remains pale but warm to touch. Constitutional: + ill appearing, + altered mental status, + frail appearing, + cushingoid and + lethargic Eyes: reactive pupils ENMT: Mouth: + dry oral mucous membranes and + poor dentition Respiratory: normal respiratory effort (diminished) Cardiovascular: RRR, no murmur, no edema Gastrointestinal (Abdomen): normal bowel sounds, soft, nontender, no hepatosplenomegaly Neurologic: + obtunded Speech / Cognition: + abnormal cognition PG Care Time/CCT Total # of Minutes Spent Total Time Spent with Patient: Total time spent is greater than 50% in coordination of care (as documented) at patient's floor/unit and/or counseling patient: Coding Level of Care Code 00684 Subseq Hosp Care Lvl 1 Diagnoses 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
[2022-04-19] MEDS: CHECK CLONIDINE PATCH PLACEMENT SCH ×2 (00:23→07:44)
[2022-04-19] MEDS: LORazepam 2 MG/1 ML VIAL IV SCH (04:54)
[2022-04-19] MEDS: MoRPHine SULFATE 2 MG/ML CARP IV PRN (05:51)
[2022-04-19] MEDS: GLYCOPYRROLATE 0.2 MG/ML VIAL IV PRN (07:55)
[2022-04-19] MEDS ORDERED: SCOPOLAMINE 1 MG TDSY TD SCH (11:00)
[2022-04-19] MEDS ORDERED: CHECK SCOPOLAMINE PATCH PLACEMENT SCH (16:00)
--- NOTE | 2022-04-19 19:10 | Discharge Summary ---
Date of Service April 19, 2022 Admission HPI Per Admitting Provider 67-year-old male who was recently discharged from [facility] where he presented with decreased urine and stool output found to be obstipated with manual disimpaction. He does not have widely metastatic melanoma including melanoma to the brain. According to radiation oncology notes from February he completed whole brain radiation and palliative radiation to a neck mass. Patient presents with altered mental status and the fact that he stares blankly into space has a left gaze preference and does not answer questions. CT imaging in the ER shows interval enlargement of numerous intracranial masses compatible with enlarging hemorrhagic metastasis comments include frontal lesion expands to 10 mm from 7, left parietal occipital lesion expansile 27 mm compared to 17, right parietal lesion expanse 18 from 14. 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 Discharge Data Allergies Allergy/AdvReac Type Severity Reaction Status Date / Time lovastatin Allergy Unknown CAN'T Verified 04/12/22 19:00 REMEMBER simvastatin Allergy Unknown CAN'T Verified 04/12/22 19:00 REMEMBER prochlorperazine AdvReac Intermediate Nausea Verified 04/12/22 19:00 [From Compazine] Consultations 04/12/22 17:19 ED Decision to Admit Stat 04/12/22 21:43 Consult Neurology Routine 04/15/22 13:56 Consult Palliative Care Routine Ordered Studies 04/12/22 15:36 CT abd pelvis wo con Stat CT head/brain wo con Stat Hospital Course (1) 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 Patient be maintained on dexamethasone and Keppra, he has completed whole brain irradiation and neck radiation he does see palliative care as an outpatient. I spoke to his daughter, who is his primary caregiver she feels that she wishes for us to support him to see if this is seizure related but if he does not wake up likely progress towards comfort care. I instructed him to discuss if he does not wake up their thoughts and feelings about hydration nutrition etc. -Pending neurology consult, Patient is still encephalopathic Increase the dose of Decadron to 4 mg every 6 hours 04/14 -Some mild improvement in mental status, continue Keppra, continue current dose of Decadron, awaiting for EEG, follow no neurology 04/15 some mild improvement in his consciousness, but does not follow simple commands, prognosis overall poor, discussed with palliative care, patient is a hospice candidate, waiting for hospice arrangement, patient is qualified for inpatient hospice, EKG is not diagnostic for epileptogenic foci, as per neurology recommend continue Keppra, continue with IV fluid , continue Decadron 04/17 -He is more encephalopathic today, IV fluid has been discontinued, Keppra has been 04/18 The patient examined today, expect his demise within 24 to 48 hours 04/19 Patient on at 1118, family informed, (2) Diabetes mellitus: Serum glucose has not been monitored at this point (3) Benign essential hypertension: Uncontrolled, add clonidine patch Total Time Total Time Spent Total Time Spent (In Minutes): 20 Discharge Plan Discharge Items Patient Disposition: Other Date/Time: 04/19/22 11:18 Coding Level of Care Code D/C DAY MANAGEMENT <30 MINS Diagnoses 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
== END 2022-04-19 13:35 | disposition expired | DRG 54 ==
LOC: ED 15:09 → SUATTDRO 18:18 → 2E 18:18 → 3E 04-16 23:53